=== PATIENT | female | born 1955 | race Caucasian/White ===

== ENCOUNTER → 2019-06-09 09:30 | Outpatient (BNVA) | payer SELFPAY | PROVIDERS: Family Provider Family Medicine; PCP Family Medicine; Visit Provider Anesthesiology | DX: M54.17 Radiculopathy, lumbosacral region (principal); M43.16 Spondylolisthesis, lumbar region; F17.210 Nicotine dependence, cigarettes, uncomplicated; Z79.891 Long term (current) use of opiate analgesic | CPT/HCPCS: 99214 ==

== ENCOUNTER 2019-07-21 14:06 | Outpatient (CLI) | payer MEDICAID, SELFPAY ==
--- NOTE | 2019-07-21 14:10 | MM_ITS ---
WS: [id number] BILATERAL DIGITAL SCREENING MAMMOGRAPHY WITH CAD CLINICAL INFORMATION: SCREENING HISTORY: Screening mammogram. No current complaints. COMPARISON: March 23, 2018 TECHNIQUE: Bilateral CC and MLO views. FINDINGS: Scattered fibroglandular densities bilaterally. No suspicious focal mass, asymmetry, calcifications, or architectural distortion. Stable asymmetric densities right breast. No evidence of malignancy. MM/[place] [id number] IMPRESSION: BI-RADS: 1-Negative FOLLOW UP: 1 Year Follow-up Recommend return to annual screening mammography.
== END 2019-07-21 14:07 | disposition home or self-care (01) ==
LOC: RADSHAW 14:06
PROVIDERS: Family Provider Family Medicine; PCP Family Medicine; Visit Provider Family Medicine
DX: Z12.31 Encounter for screening mammogram for malignant neoplasm of breast (principal)
CPT/HCPCS: 77067

== ENCOUNTER → 2019-08-01 10:31 | Outpatient (BNVA) | payer MEDICAID, SELFPAY | PROVIDERS: Family Provider Family Medicine; PCP Family Medicine; Visit Provider Anesthesiology | DX: G89.29 Other chronic pain (principal); M43.16 Spondylolisthesis, lumbar region; M54.17 Radiculopathy, lumbosacral region; F17.210 Nicotine dependence, cigarettes, uncomplicated; Z79.891 Long term (current) use of opiate analgesic; Z71.6 Tobacco abuse counseling | CPT/HCPCS: 99214 ==

== ENCOUNTER → 2019-10-03 08:42 | Outpatient (BNVA) | payer MEDICAID, SELFPAY | PROVIDERS: Family Provider Family Medicine; PCP Family Medicine; Visit Provider Nurse Practitioner | DX: M54.17 Radiculopathy, lumbosacral region (principal); M54.9 Dorsalgia, unspecified; F17.210 Nicotine dependence, cigarettes, uncomplicated; Z79.891 Long term (current) use of opiate analgesic | CPT/HCPCS: 99213 ==

== ENCOUNTER 2019-10-17 00:13 | Observation (INO) | payer MEDICAID, SELFPAY ==
[2019-10-17] VITALS (30 sets, daily range): BP systolic 97–179; BP diastolic 52–89; PULSE 69–108; RESP 14–20; TEMP 36.8–38.1; O2SAT 90–99; BMI 20.9
--- NOTE | 2019-10-17 00:36 | CTR_ITS ---
PROCEDURE INFORMATION: Exam: CT Abdomen And Pelvis With Contrast Exam date and time: 10/17/2019 12:42 AM Age: 64 years old Clinical indication: Abdominal pain; Localized; Lower; Additional info: Abd pain TECHNIQUE: Imaging protocol: Computed tomography of the abdomen and pelvis with intravenous contrast. Radiation optimization: All CT scans at this facility use at least one of these dose optimization techniques: automated exposure control; mA and/or kV adjustment per patient size (includes targeted exams where dose is matched to clinical indication); or iterative reconstruction. Contrast material: OMNI 300; Contrast volume: 95 ml; Contrast route: IV; COMPARISON: CR Hips Bilat 3-4v wwo Pelv [id number] 04/01/2018 2:04 PM RADIATION DOSE METRICS: Total DLP: 529.54 mGy-cm FINDINGS: Lungs: There is subsegmental atelectasis in the right middle lobe. 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 The liver is not pathologically enlarged. There is a 13 mm simple cyst in the right lobe of the liver. Gallbladder and bile ducts: The gallbladder is normal. There is no biliary dilation. Pancreas: The pancreatic duct is dilated in the pancreatic head and neck. No ductal stone or mass is seen. Spleen: Normal. No splenomegaly. Adrenals: The adrenal glands are unremarkable. Kidneys and ureters: There is a nonobstructive stone in the right kidney. There is no hydronephrosis or ureteral dilation. The left kidney and ureter are unremarkable. Stomach and bowel: The stomach is decompressed, preventing meaningful evaluation of wall thickness. The small bowel is nondilated. There is no sign of inflammation. The colon is unremarkable. Appendix: The appendix is dilated measuring up to 13 mm diameter. There is an appendicolith in the lumen. There is minimal periappendiceal edema. Intraperitoneal space: There is no free air or significant intraperitoneal free fluid. Vasculature: There is moderate aortic atherosclerotic disease. Lymph nodes: There is no lymphadenopathy in the retroperitoneum, mesentery, pelvis or inguinal regions. Bladder: The urinary bladder is unremarkable. Reproductive: The uterus is unremarkable. There is no adnexal mass or large cyst. Bones/joints: There is moderate degenerative disease in the lower lumbar spine. The pelvis and hips are unremarkable. Soft tissues: The abdominal wall is intact. CT/CT abdomen pelvis w con* [id number] IMPRESSION: 1. Acute appendicitis. No sign of perforation. 2. Incidental findings above. Radiation Dose CTDIVOL = (mGy): DLP = 529.54 (mGy-cm)
--- NOTE | 2019-10-17 00:37 | W.ED.ABDPA2 ---
Documented by User: [email or web address] Harry 10/17/19 01:58 HPI - Abdominal Pain General: Chief Complaint: Abdominal Pain Stated Complaint: Lower abd pain Time Seen by Provider: 10/17/19 00:27 History of Present Illness: HPI narrative: Patient complains abdominal pain sudden onset six oclock this evening. Has vomited x2. Has not been sick at all this week has history of chronic pain does go to pain clinic. Patient said she is has constant pain radiating through her abdomen to her flanks denies any urinary problems Are any bowel problems MD elicited complaint: abdominal pain Onset (ago): hour(s) Pain Consistency: constant Location: RLQ and LLQ Severity: severe Pain scale (0-10): 8 Quality: cramping Radiation: bilateral flank Exacerbating factors: nothing Relieving factors: nothing Context: possible food poisoning (Twin sister lives next door had some stomach problems earlier this week and had diarrhea this morning) Associated Symptoms: Reports no associated symptoms and vomiting; Denies chills, fever(s) and nausea Review of Systems Const: Denies: fever(s), chills or body aches Eyes: Denies: change in vision or blurry vision ENMT: Denies: throat pain or nasal congestion Card: Denies: chest pain or dyspnea on exertion Resp: Denies: dyspnea, productive cough or non-productive cough GI: Reports: abdominal pain and vomiting; Denies: nausea Musc: Denies: extremity pain Skin/Breast: Denies: rash Neuro: Denies: headache(s) Psych: Denies: anxiety or depression Tristian/Lymph: Denies: easy bruising PFSH ED PFSH: Medical History (Updated 10/17/19 @ 02:33 by Jackie Gallagher) Current every day smoker Long-term current use of opiate analgesic Lumbosacral radiculopathy due to intervertebral disc disorder Opioid contract exists Spondylolisthesis of lumbar region Surgical History History of carpal tunnel surgery of left wrist History of carpal tunnel surgery of right wrist Family History Other CAD (coronary artery disease) Denies family history of Anesthesia complication Bleeding disorder Social History (Updated 10/03/19 @ 08:58 by SHAMA Medina Smoking and tobacco status: current every day smoker cigarettes Packs smoked per day: 0.5 Alcohol intake: never History of recent travel: No Physical Exam Const: COMMON NORMALS: no acute distress, average body habitus and patient oriented x3 HENMT: COMMON NORMALS: normocephalic HEAD & SCALP: normal to inspection and normocephalic FACE & SINUS: normal facial exam Eye: COMMON NORMALS: conjunctivae normal GENERAL EYE: appearance normal, both eyes and all related structures CONJUNCTIVA: Yes conjunctivae normal Neck/C-Spine: COMMON NORMALS: no JVD Chest: COMMONS NORMALS: normal inspection of the chest Resp: COMMON NORMALS: normal respiratory effort and clear to auscultation bilaterally AUSCULTATION: clear to auscultation bilaterally Cardio: COMMON NORMALS: no JVD, regular rate and regular rhythm RATE: regular rate RHYTHM: regular rhythm GI: AUSCULTATION: Yes normoactive bowel sounds PALPATION: Yes Tenderness to palpation present (GI) Details: LLQ and RLQ PERCUSSION: normal to percussion Extremity: COMMON NORMALS: normal to inspection and full ROM Neuro: COMMON NORMALS: patient oriented x3 Course Vital Signs: Vital signs: Vital Signs Temperature 98.3 F 10/17/19 00:21 Pulse Rate 78 10/17/19 02:18 Respiratory Rate 16 10/17/19 02:21 Blood Pressure 179/89 10/17/19 02:18 Pulse Oximetry 96 10/17/19 02:21 MDM - Abdominal Pain MDM Narrative: Medical decision making narrative: Discussed case with Dr. Gallagher and will be signing out to him Lab Data: Labs: Lab Results 10/17/19 10/17/19 Range/Units 00:43 00:43 WBC 15.6 H (4.0-10.0) 10^3/ uL RBC 3.75 L (4.1-5.3) 10^6/u L Hgb 11.8 (11.5-15.3) g/dL Hct 36.1 L (37.0-47.0) % MCV 96.3 (81-99) fL MCH 31.5 (28.0-34.0) pg MCHC 32.7 (30.0-36.0) g/dL RDW 13.2 (12.1-15.1) % Plt Count 325 (130-400) 10^3/c mm MPV 9.4 (7.4-10.4) fL Neut % (Auto) 83.8 % Lymph % (Auto) 9.7 % Hopkins % (Auto) 5.4 % Eos % (Auto) 0.4 % Baso % (Auto) 0.4 % Neut # (Auto) 13.1 H (1.8-7.7) 10^3/u L Lymph # (Auto) 1.5 (0.8-4.8) 10^3/u L Hopkins # (Auto) 0.9 (0.2-0.9) 10^3/u L Eos # (Auto) 0.1 (0.0-0.8) 10^3/u L Baso # (Auto) 0.1 (0.0-0.1) 10^3/u L Nucleated RBC % (a uto) 0 % Nucleated RBCs # 0.0 /100WBC Sodium 138 (136-145) mmol/L Potassium 3.9 (3.5-5.1) mmol/L Chloride 101 (98-107) mmol/L Carbon Dioxide 24 (22-29) mmol/L Anion Gap 16.9 (5-19) BUN 16 (8-23) mg/dL Creatinine 0.7 (0.5-0.9) mg/dL GFR Calculation 84.5 L (90-130) mL/min Glucose 149 H (65-115) mg/dL Calculated Osmolal ity 285 (285-295) mOsm/k g Calcium 9.9 (8.5-10.5) mg/dL Total Bilirubin 0.2 (0.15-1.2) mg/dL AST 16 (0-32) U/L ALT 12 (0-33) U/L Alkaline Phosphata se 87 (35-105) IU/L Total Protein 7.5 (6.6-8.7) g/dL Albumin 4.5 (3.5-5.2) g/dL Globulin 3.0 (1.3-4.6) g/dL Lipase 235 H (13-60) U/L Discharge Plan Discharge Patient Disposition: Placed in Observation Admit Provider: Kimani Kay Clinical Impression: Acute appendicitis Condition: Stable Sign Out Sign Out Data: Patient Sign Out occurred on 10/17/19 at 02:02. Patient's care was discussed, and care was transferred from to Jackie Gallagher. Coding Level of Care Code ED Chief Ultrasound Technologist for Chg Fwd Exam Comprehensive Documented by User: Jackie Gallagher 10/17/19 02:33 HPI - Abdominal Pain General: Chief Complaint: Abdominal Pain Stated Complaint: Lower abd pain Time Seen by Provider: 10/17/19 00:27 [facility] ED PFSH: Medical History (Updated 10/17/19 @ 02:33 by Jackie Gallagher) Current every day smoker Long-term current use of opiate analgesic Lumbosacral radiculopathy due to intervertebral disc disorder Opioid contract exists Spondylolisthesis of lumbar region Surgical History History of carpal tunnel surgery of left wrist History of carpal tunnel surgery of right wrist Family History Other CAD (coronary artery disease) Denies family history of Anesthesia complication Bleeding disorder Social History (Updated 10/03/19 @ 08:58 by Niyah Andrews LPN) Smoking and tobacco status: current every day smoker cigarettes Packs smoked per day: 0.5 Alcohol intake: never History of recent travel: No Course Vital Signs: Vital signs: Vital Signs Temperature 98.3 F 10/17/19 00:21 Pulse Rate 78 10/17/19 02:18 Respiratory Rate 16 10/17/19 02:21 Blood Pressure 179/89 10/17/19 02:18 Pulse Oximetry 96 10/17/19 02:21 MDM - Abdominal Pain MDM Narrative: Medical decision making narrative: Case turned over to me from Barrera Salcido APN. Please see his note for his history, physical exam and medical decision making notes. Patient has localized peritonitis to the right lower quadrant. She is nonfocal throughout the rest of the abdomen. White count is elevated and CT scan does show appendicitis but no perforation. I reviewed the case in full with Dr. Kay who is agreeable to admission. We will start antibiotics and continue pain medication and IV hydration. Lab Data: Labs: Lab Results 10/17/19 10/17/19 Range/Units 00:43 00:43 WBC 15.6 H (4.0-10.0) 10^3/ uL RBC 3.75 L (4.1-5.3) 10^6/u L Hgb 11.8 (11.5-15.3) g/dL Hct 36.1 L (37.0-47.0) % MCV 96.3 (81-99) fL MCH 31.5 (28.0-34.0) pg MCHC 32.7 (30.0-36.0) g/dL RDW 13.2 (12.1-15.1) % Plt Count 325 (130-400) 10^3/c mm MPV 9.4 (7.4-10.4) fL Neut % (Auto) 83.8 % Lymph % (Auto) 9.7 % Hopkins % (Auto) 5.4 % Eos % (Auto) 0.4 % Baso % (Auto) 0.4 % Neut # (Auto) 13.1 H (1.8-7.7) 10^3/u L Lymph # (Auto) 1.5 (0.8-4.8) 10^3/u L Hopkins # (Auto) 0.9 (0.2-0.9) 10^3/u L Eos # (Auto) 0.1 (0.0-0.8) 10^3/u L Baso # (Auto) 0.1 (0.0-0.1) 10^3/u L Nucleated RBC % (a uto) 0 % Nucleated RBCs # 0.0 /100WBC Sodium 138 (136-145) mmol/L Potassium 3.9 (3.5-5.1) mmol/L Chloride 101 (98-107) mmol/L Carbon Dioxide 24 (22-29) mmol/L Anion Gap 16.9 (5-19) BUN 16 (8-23) mg/dL Creatinine 0.7 (0.5-0.9) mg/dL GFR Calculation 84.5 L (90-130) mL/min Glucose 149 H (65-115) mg/dL Calculated Osmolal ity 285 (285-295) mOsm/k g Calcium 9.9 (8.5-10.5) mg/dL Total Bilirubin 0.2 (0.15-1.2) mg/dL AST 16 (0-32) U/L ALT 12 (0-33) U/L Alkaline Phosphata se 87 (35-105) IU/L Total Protein 7.5 (6.6-8.7) g/dL Albumin 4.5 (3.5-5.2) g/dL Globulin 3.0 (1.3-4.6) g/dL Lipase 235 H (13-60) U/L Discharge Plan Discharge Patient Disposition: Placed in Observation Admit Provider: Kimani Kay Clinical Impression: Acute appendicitis Condition: Stable Sign Out Sign Out Data: Patient Sign Out occurred on 10/17/19 at 02:02. Patient's care was discussed, and care was transferred from to Jackie Gallagher. Coding Level of Care Code ED Chief Ultrasound Technologist for Jason Fwd Exam Comprehensive
[2019-10-17] MEDS: sodium chloride 0.9% 1,000 ML 999 ML IV (00:45)
[2019-10-17] MEDS: morphine 4 mg/mL SDV 1 mL IVP ×2 (00:46→06:48)
[2019-10-17] MEDS: metoclopramide 5 mg/mL SDV 2 mL 10 MG IVP (00:46)
[2019-10-17 00:52] LABS: Basophils # 0.1 10^3/uL (0.0-0.1); Basophils % 0.4 %; Eosinophils # 0.1 10^3/uL (0.0-0.8); Eosinophils % 0.4 %; Hematocrit 36.1 % (37.0-47.0); Hemoglobin 11.8 g/dL (11.5-15.3); Lymphocytes # 1.5 10^3/uL (0.8-4.8); Lymphocytes % 9.7 %; Mean Corpuscular HGB Conc 32.7 g/dL (30.0-36.0); Mean Corpuscular Hemoglobin 31.5 pg (28.0-34.0); Mean Corpuscular Volume 96.3 fL (81-99); Mean Platelet Volume 9.4 fL (7.4-10.4); Monocytes # 0.9 10^3/uL (0.2-0.9); Monocytes % 5.4 %; Neutrophils # 13.1 10^3/uL (1.8-7.7); Neutrophils % 83.8 %; Nucleated Red Blood Cells % 0 %; Platelet Count 325 10^3/cmm (130-400); Red Blood Count 3.75 10^6/uL (4.1-5.3); Red Cell Distribution Width 13.2 % (12.1-15.1); White Blood Count 15.6 10^3/uL (4.0-10.0)
[2019-10-17 01:10] LABS: Alanine Aminotransferase 12 U/L (0-33); Albumin Level 4.5 g/dL (3.5-5.2); Alkaline Phosphatase 87 IU/L (35-105); Anion Gap 16.9 (5-19); Aspartate Amino Transferase 16 U/L (0-32); Blood Urea Nitrogen 16 mg/dL (8-23); Calcium 9.9 mg/dL (8.5-10.5); Carbon Dioxide 24 mmol/L (22-29); Chloride 101 mmol/L (98-107); Glomerular Filtration Rate 84.5 mL/min (90-130); Glucose 149 mg/dL (65-115); Lipase 235 U/L (13-60); Osmolality Calculated 285 mOsm/kg (285-295); Potassium 3.9 mmol/L (3.5-5.1); Sodium 138 mmol/L (136-145); Total Bilirubin 0.2 mg/dL (0.15-1.2); Total Protein 7.5 g/dL (6.6-8.7)
[2019-10-17] MEDS: iohexol 300 mg/mL 100 mL Btl IV (01:19)
[2019-10-17] MEDS: ketorolac 30 mg/mL INJ 15 MG IVP (01:29)
[2019-10-17] MEDS: HYDROmorphone 1 mg/mL INJ 1 mL 0.5 MG IVP (02:21)
[2019-10-17] MEDS: piperacillin-tazobactam 3.375 GM in sodium chloride 0.9% (plus) 50 ML IV ×3 (02:23→17:05)
[2019-10-17 02:39] LABS: Add Urine Microscopic? NO
[2019-10-17 02:41] LABS: Bilirubin Urine Neg (NEGATIVE); Blood Urine Neg (Negative); Glucose Urine UA Norm (Normal); Ketones Urine Negative (Negative); Leukocyte Esterase Urine Negative (Negative); Nitrate Urine Negative (Negative); Protein Urine Neg (Negative); Urine Appearance Clear (CLEAR); Urine Color Yellow (Yellow); Urobilinogen Urine Norm (Negative); pH Urine 7 (5-7)
[2019-10-17] MEDS: dextrose 5%-sod chloride 0.45% 1,000 ML 100 ML IV (03:56)
[2019-10-17 04:28] LABS: HCG, Serum Qual Negative (Negative)
[2019-10-17 05:48] LABS: Basophils # 0.1 10^3/uL (0.0-0.1); Basophils % 0.3 %; Hematocrit 36.5 % (37.0-47.0); Hemoglobin 12.3 g/dL (11.5-15.3); Lymphocytes % 6.3 %; Mean Corpuscular HGB Conc 33.7 g/dL (30.0-36.0); Mean Corpuscular Hemoglobin 32.1 pg (28.0-34.0); Mean Corpuscular Volume 95.3 fL (81-99); Mean Platelet Volume 9.9 fL (7.4-10.4); Monocytes # 1.1 10^3/uL (0.2-0.9); Monocytes % 7.5 %; Neutrophils # 12.9 10^3/uL (1.8-7.7); Neutrophils % 85.6 %; Nucleated Red Blood Cells % 0 %; Platelet Count 302 10^3/cmm (130-400); Red Blood Count 3.83 10^6/uL (4.1-5.3); Red Cell Distribution Width 13.2 % (12.1-15.1)
--- NOTE | 2019-10-17 05:55 | PC.NURSE ---
Shift Note Patient was educated on being NPO through the night to prepare for possible surgery in the morning. Patient drank approx. 200ml of water. Patient has a low grade fever of 90.0 with chills. Patient reports that her pain has decreased since getting IV pain medication in the ER.
[2019-10-17 06:05] LABS: Anion Gap 21.7 (5-19); Blood Urea Nitrogen 12 mg/dL (8-23); Calcium 9.8 mg/dL (8.5-10.5); Carbon Dioxide 21 mmol/L (22-29); Chloride 101 mmol/L (98-107); Glucose 138 mg/dL (65-115); Osmolality Calculated 286 mOsm/kg (285-295); Potassium 4.7 mmol/L (3.5-5.1); Sodium 139 mmol/L (136-145)
[2019-10-17] MEDS: ondansetron 2 mg/ML SDV 2 mL 4 MG IVP (06:48)
[2019-10-17] MEDS: metroNIDAZOLE IV 500 MG/100 ML PREMIX 100 MG IV (07:08)
--- NOTE | 2019-10-17 07:11 | PM.HP ---
Providers/Chief Complaint Admitting Physician: Kimani Kay MD Primary Care Provider: Edith Milner MD Chief Complaint: Lower abd pain History of Present Illness Kassy Thomas is a 64 year old female who began having lower abdominal cramping last night around 6 PM. She had previously felt well. She said the pain seemed to bother her back, as well, but she does have chronic back issues. She also developed somewhat of a headache. She became somewhat nauseated and vomited 3 times at home without any evidence of hematemesis. She eventually came to the emergency room and work-up revealed acute appendicitis by CAT scan. The patient had a colonoscopy last year which she says was normal. She denies any changes in bowel habits. Review of Systems General: Reports: 10 or more systems reviewed and unremarkable except in HPI and below Medications/Allergies Home Medications Medication Instructions Recorded Confirmed Last Taken Type amitriptyline 75 mg tablet 75 mg PO QDAY PRN 06/09/19 10/03/19 Unknown History aspirin 81 mg tablet,delayed 81 mg PO QDAY 06/09/19 10/03/19 Unknown History release lisinopril 20 mg tablet 20 mg PO QDAY 06/09/19 10/03/19 Unknown History lovastatin 20 mg tablet 20 mg PO QDAY 06/09/19 10/03/19 Unknown History trazodone 100 mg tablet 100 mg PO .BEDTIME PRN tab 06/09/19 10/03/19 Unknown History kgagfct-threbwfcds-NZO-caffeine 30 1 cap PO ONCE PRN 30 Days #30 cap 10/03/19 10/03/19 Unknown Rx mg-50 mg-325 mg-40 mg capsule gabapentin 300 mg capsule 300 mg PO TID 30 Days #90 cap 10/03/19 10/03/19 Unknown Rx ibuprofen 800 mg tablet 800 mg PO BID PRN 30 Days #60 tab 10/03/19 10/03/19 Unknown Rx oxycodone 5 mg tablet 5 mg PO TID PRN 30 Days #90 tab 10/03/19 10/03/19 Unknown Rx oxycodone 5 mg tablet 5 mg PO TID PRN 30 Days #90 tab 10/03/19 10/03/19 Unknown Rx methocarbamol 500 mg tablet 500 mg PO TID PRN 30 Days #90 tab 10/04/19 Unknown Rx Allergies Allergy/AdvReac Type Severity Reaction Status Date / Time tramadol Allergy Unknown Verified 10/17/19 00:22 doxycycline AdvReac BEHAVIORAL Verified 10/03/19 08:49 CHANGES hydrocodone AdvReac CAUSES Verified 10/03/19 08:49 PATIENT TO FEEL WIRED PFSH Acute PFSH: Medical History (Updated 10/17/19 @ 07:13 by Kimani Kay MD) Current every day smoker Hypertension Long-term current use of opiate analgesic Lumbosacral radiculopathy due to intervertebral disc disorder Opioid contract exists Spondylolisthesis of lumbar region Surgical History (Updated 10/17/19 @ 07:14 by Kimani Kay MD) History of carpal tunnel surgery of left wrist History of tonsillectomy History of tubal ligation Family History Other CAD (coronary artery disease) Denies family history of Anesthesia complication Bleeding disorder Social History Smoking and tobacco status: current every day smoker cigarettes Packs smoked per day: 0.5 Alcohol intake: never History of recent travel: No Vitals/I&O/Wt Last Vital Signs Temp 99.0 F 10/17/19 06:06 Pulse 85 10/17/19 04:00 Resp 18 10/17/19 06:48 BP 149/72 10/17/19 04:00 Pulse Ox 95 10/17/19 04:00 10/16/19 10/17/19 10/17/19 22:59 06:59 14:59 Intake Total 200 / 200 Output Total 400 / 400 Balance -200 / -200 Weight last 48 hrs Weight 130 lb Physical Exam Narrative: EXAM NARRATIVE: The patient was encountered in her hospital room. She does not appear to be in any acute distress but seems uncomfortable when she tries to move around on the bed. The pupils are equal. No carotid bruits are heard. Lungs are clear anteriorly. The heart is regular. The abdomen does reveal some bowel sounds and is soft but she has tenderness all along her pelvis. The right side seems to be a little worse than the left and she does have some tenderness over McBurney's point. Rovsing's sign is negative in the sense that when I push on the left side of the pelvis she does have tenderness in that region. No obvious masses are palpated. The extremities reveal no edema. Neurologically the patient appears to be grossly intact. Data : 10/17/19 05:29 10/17/19 05:29 CT Abd/Pel: My impression: CT reveals a dilated appendix in the right lower quadrant extending inferiorly into the pelvis. Radiologist's impression: CT abdomen/pelvis radiologist iMPRESSION: 1. Acute appendicitis. No sign of perforation. 2. Incidental findings above. A&P Assessment and plan (1) Acute appendicitis: I have discussed appendicitis with the patient in some detail. Both conservative and surgical methods of treatment were gone over. Risks of surgery including bleeding, infection, internal organ injury, etc. were all discussed. The patient seems to understand and would prefer to undergo an appendectomy. Plans were made for the patient to undergo a laparoscopic or possibly open appendectomy this morning. Status: Acute Qualifiers: Acute appendicitis type: with localized peritonitis Appendicitis abscess presence: without abscess Appendicitis gangrene presence: without gangrene Appendicitis perforation presence: without perforation Qualified Code(s): K35.30 - Acute appendicitis with localized peritonitis, without perforation or gangrene Attestations Medical Necessity Statement*: Based on my medical assessment, presenting symptoms and consideration of the scope of surgical therapy, I expect this patient will require treatment in the hospital for a period of time spanning less than 2 midnights, and is therefore being placed in observation status. 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
--- NOTE | 2019-10-17 07:38 | ANES.PREANE2 ---
Pre-Anesthetic Assessment Pre-Anesthetic Assessment: Height/Weight: Height 1.68 m Weight 58.967 kg Temp Pulse Resp BP Pulse Ox 99.0 F 85 18 149/72 95 10/17/19 06:06 10/17/19 04:00 10/17/19 06:48 10/17/19 04:00 10/17/19 04:00 Proposed Procedure: Operation Date: 10/17/19 08:50 Proposed Procedures p Laparoscopic Appendectomy(Not Applicable) - Kimani Kay MD Last intake: Intake Last Liquid Date 10/16/19 Last Liquid Time 22:00 Last Solid Date 10/16/19 Last Solid Time 20:00 Social: Social History: Tobacco and No alcohol Exam: Pre-Anes Outpt Exam: alert, oriented x 3, clear to auscultation bilaterally and regular rate & rhythm Airway: Submandibular: WNL Cervical ROM: WNL MP: 2 Dentition: False and Full (dentures) History/ROS: No significant history except as noted Pulmonary: Pulmonary: Sleep apnea CV/HEM: CV/HEM: HTN : : None reported Hepatic: Hepatic: None reported GI: GI: None reported Metabolic: Metabolic: Hyperlipidemia Musc/skel: Musc/skel: Lower Back Pain and OA/DJD Neuropsych: Neuropsych: Anxiety, Depression and Neuropathy (left leg) Anesthetic Plan: ASA status: 3E Anesthesia: Anesthesia Evaluation and General Risk of > 500 ml blood loss (7ml/kg in children): No Meds/Allergies Current Medications: Current Medications Generic Name Dose Route Start Last Admin Trade Name Freq PRN Reason Stop Dose Admin Dextrose/Sodium Ch loride 1,000 mls @ 100 m ls/hr 10/17/19 03:14 10/17/19 03:56 Dextrose 5%-Sod Chloride 0.45% IV 100 mls/hr .Q10H NILO Administration Morphine Sulfate 4 mg 10/17/19 03:14 10/17/19 06:48 Morphine IVP 4 mg Q4H PRN Administration SEVERE PAIN Ondansetron HCl 4 mg 10/17/19 03:14 10/17/19 06:48 Zofran IVP 4 mg Q6H PRN Administration NAUSEA AND VOMITI NG PFSH Anesthesia PFSH: Medical History Current every day smoker Hypertension Long-term current use of opiate analgesic Lumbosacral radiculopathy due to intervertebral disc disorder Opioid contract exists Spondylolisthesis of lumbar region Surgical History History of carpal tunnel surgery of left wrist History of dilatation and curettage x 1 History of tonsillectomy History of tubal ligation Family History Other CAD (coronary artery disease) Denies family history of Anesthesia complication Bleeding disorder Social History Smoking and tobacco status: current every day smoker cigarettes Packs smoked per day: 0.5 Alcohol intake: never History of recent travel: No Data Anesthesia CBC & Chem 7: 10/17/19 05:29 10/17/19 05:29 Other Labs: Laboratory Results - last 48 hr 10/17/19 10/17/19 10/17/19 00:43 00:43 00:43 WBC 15.6 H RBC 3.75 L Hgb 11.8 Hct 36.1 L MCV 96.3 MCH 31.5 MCHC 32.7 RDW 13.2 Plt Count 325 MPV 9.4 Neut % (Auto) 83.8 Lymph % (Auto) 9.7 Christian % (Auto) 5.4 Eos % (Auto) 0.4 Baso % (Auto) 0.4 Neut # (Auto) 13.1 H Lymph # (Auto) 1.5 Christian # (Auto) 0.9 Eos # (Auto) 0.1 Baso # (Auto) 0.1 Nucleated RBC % (auto) 0 Nucleated RBCs # 0.0 Sodium 138 Potassium 3.9 Chloride 101 Carbon Dioxide 24 Anion Gap 16.9 BUN 16 Creatinine 0.7 GFR Calculation 84.5 L Glucose 149 H Calculated Osmolality 285 Calcium 9.9 Total Bilirubin 0.2 AST 16 ALT 12 Alkaline Phosphatase 87 Total Protein 7.5 Albumin 4.5 Globulin 3.0 Lipase 235 H HCG, Qual Negative Urine Color Urine Appearance Urine pH Ur Specific [place] Urine Protein Urine Glucose (UA) Urine Ketones Urine Blood Urine Nitrate Urine Bilirubin Urine Urobilinogen Ur Leukocyte Esterase 10/17/19 10/17/19 10/17/19 02:15 05:29 05:29 WBC 15.0 H RBC 3.83 L Hgb 12.3 Hct 36.5 L MCV 95.3 MCH 32.1 MCHC 33.7 RDW 13.2 Plt Count 302 MPV 9.9 Neut % (Auto) 85.6 Lymph % (Auto) 6.3 Christian % (Auto) 7.5 Eos % (Auto) 0.0 Baso % (Auto) 0.3 Neut # (Auto) 12.9 H Lymph # (Auto) 1.0 Christian # (Auto) 1.1 H Eos # (Auto) 0.0 Baso # (Auto) 0.1 Nucleated RBC % (auto) 0 Nucleated RBCs # 0.0 Sodium 139 Potassium 4.7 Chloride 101 Carbon Dioxide 21 L Anion Gap 21.7 H BUN 12 Creatinine 0.6 GFR Calculation 101.0 Glucose 138 H Calculated Osmolality 286 Calcium 9.8 Total Bilirubin AST ALT Alkaline Phosphatase Total Protein Albumin Globulin Lipase HCG, Qual Urine Color Yellow Urine Appearance Clear Urine pH 7 Ur Specific [place] 1.010 Urine Protein Neg Urine Glucose (UA) Norm Urine Ketones Negative Urine Blood Neg Urine Nitrate Negative Urine Bilirubin Neg Urine Urobilinogen Norm Ur Leukocyte Esterase Negative Cardiac Studies: No Data to Display
[2019-10-17] MEDS: fentaNYL 50 mcg/mL INJ 2mL 100 MCG IVP (07:51)
[2019-10-17] MEDS: sodium chloride 0.9% 1,000 ML 30 ML IV (07:58)
--- NOTE | 2019-10-17 08:55 | P.OP_ITS ---
Operative Report Date of procedure: October 17, 2019 Pre-op Diagnosis: Acute appendicitis. Post-op Diagnosis: Same, with localized perforation at the appendiceal base. Procedure Done: Laparoscopic appendectomy. Specimens removed/disposition: Appendix. Surgeon: Kimani Kay Anesthesia: General Estimated blood loss (mL): 5 Complications: None. Condition: stable Disposition: PACU Procedure: The patient was brought to the Operating Room and was placed in a supine position on the operating room table. General endotracheal anesthesia was induced. The abdomen was prepped and draped in a sterile fashion. A small vertical incision was carried out in the inferior aspect of the umbilicus. Blunt dissection was carried out down to the fascia, which was grasp ed with a Stevenson clamp. A stay suture of 0 Vicryl was placed on either side of the midline and the midline fascia was incised. The underlying peritoneum was opened bluntly and the Cas port was placed directly into the peritoneal cavity and was held in place with the inflatable balloon. The peritoneal cavity was insufflated with carbon dioxide. The laparoscope was used to inspect the peritoneal cavity. The appendix was readily identifiable extending inferiorly from the cecum and had some purulent exudate on its surface. No other gross abnormalities were noted initially. Two 5-millimeter ports were placed in the left lower quadrant under direct vision. The patient was tilted in a Trendelenburg position and slightly to the left side. A laparoscopic Meigs was used to elevate the cecum. The appendix was freed using blunt dissection and was then elevated. The mesoappendix was divided using cautery to maintain hemostasis at the base of the appendix. After the fat had been removed from the base of the appendix, it was found that the patient actually had a small localized perforation extending into the mesoappendix. An attempt was made to get the endoscopic stapler below the perforation and was fired. The appendix was removed from the peritoneal cavity after being placed in a laparoscopic bag. Given the tenuous tissue at the appendiceal base, a Z stitch of 3-0 Vicryl was placed at the cecum laparoscopically to occlude the stapled closure. The right lower quadrant and pelvis were irrigated. The closure at the cecum was identified and appeared to be in good condition. The Cas port was removed from the umbilical site and the stay sutures of Vicryl were tied to each other at the umbilicus, closing the fascial defect so that it was airtight. A final round of irrigation was carried out in the right lower quadrant and the pelvis. No ongoing problems were seen. The remaining ports were removed from the abdominal wall as the pneumoperitoneum was evacuated. All skin incisions were closed using inverted interrupted sutures of 4-0 Vicryl. Benzoin and Steri-Strips were placed over the incisions and Band- Aids followed. The patient was taken to the Recovery Room in stable condition postoperatively.
[2019-10-17] MEDS: ipratropium 0.5 mg/2.5 mL Neb INHALATION (09:18)
--- NOTE | 2019-10-17 09:26 | SUR.PHASEI ---
09 PT TO PACU SLEEPY WITHN ORAL AIRWAY IN PLACE ORDERS FROM ЕЛЕНА Berry CRNA FOR ALBUTEROL ATROVENT NEB TO BE DONE IN [facility] 924 PT AWAKE ALERT ON RA PT TALKATIVE WANT HER DENTURES IN , NO DISTRESS NOTED REPORT CALLED TO FLOOR
[2019-10-17] MEDS: pantoprazole 40 mg SDV IVP ×2 (09:49→21:40)
[2019-10-17] MEDS: heparin 5,000 unit/mL INJ 1 mL 5000 UNIT SUBCUT ×2 (09:49→23:08)
[2019-10-17] MEDS: gabapentin 300 mg Capsule PO ×3 (09:49→20:41)
[2019-10-17] MEDS: oxyCODONE 5 mg IR Tab/Cap PO ×2 (09:49→17:04)
[2019-10-17] MEDS: lisinopril 20 mg Tablet PO (09:49)
--- NOTE | 2019-10-17 09:54 | PC.NURSE ---
BACK TO FLOOR PATIENT VITALS GOOD. SURGICAL SITES COVERED WITH STERI STRIPS AND BANDAIDS. C/D/I. PATIENT PAIN MINIMAL AT THIS TIME.
--- NOTE | 2019-10-17 10:07 | SUR.PHASEI ---
0930 PT TO FLOOR PER CART PT UP WALKED TO BED PT ALERT TALKATIVE BP 135/71, HR 93
--- NOTE | 2019-10-17 10:49 | PC.RESP ---
SMOKING CESSATION INFORMATION SENT TO PATIENT.
--- NOTE | 2019-10-17 11:50 | PC.CHAP ---
Pastoral Care Encounter/Spiritual Assessment Type of Contact [] Declined dental assistant visit [] Patient/Family/Request visit [] Outpatient visit [] Follow-up visit [] Physician referral [] Code/Alert [x] Routine visit [] Staff referral [] Actively dying [] Patient sleeping [] Family support [] [] Out of room [] Palliative care [] [x] Receiving care in room [] Pre-surgical visit [] Trauma [] Long length of stay [] ICU visit [] Other: Relational/Emotional Strength [x] Patient feels connected with others/family/visitors/staff [] Distress [] Loneliness/isolation [] Abandonment Spirituality of Patient [x] Person of Sabrina [] Attends Moravian of their Sabrina [x] Believes in Prayer [] Reads Bible or Baptist materials [] There are Spiritual issues to be addressed Front End Software Developer Interventions [x] Prayer [x] Active listening [x] Non-anxious presence [x] Spiritual/emotional support [] Crisis/trauma care [x] Spiritual counseling [] Bereavement support [] Provided bereavement packet [] Provided Bible/devotional materials [] Provided toy/stuffed animal, coloring book to patient or family member [] Provided Communion [] Anointing/Wideman [] Salvation [x] Completed spiritual assessment [] Other: Impact on Illness or Injury [] Angry [] Fearful [x] Anxious [] Often cries [] Exhaustion [] Unable to work [] Unable to attend pentecostal [] Unable to walk/stand [] Unable to read [] Unable to drive [] Unable to eat/drink [] Unable to sleep [] Unable to be with family [] Patient intubated [] Other: Summary LOWER BACK PAIN, Good attitude feels better, looking to go home, Time spent with patient 10 mins
[2019-10-17] MEDS: metroNIDAZOLE 250 mg Tablet PO ×2 (14:25→20:41)
[2019-10-17] MEDS: ciprofloxacin 500 mg Tablet PO (17:04)
[2019-10-17] MEDS: D5-NS 0.45% + KCL 20 mEq 20 MEQ/1,000 ML BAG 100 MEQ IV (17:04)
--- NOTE | 2019-10-17 18:14 | NUR.SHIFT ---
SHIFT SUMMARY PATIENT HAS DONE WELL TODAY. SURGERY WAS THIS MORNING. SURGICAL INCISION DRESSINGS ARE C/D/I. EXCELLENT URINE OUTPUT. PAIN CONTROLLED. NO COMPLAINTS.
[2019-10-17] MEDS: methocarbamol 500 mg Tablet PO (20:41)
[2019-10-17] MEDS: atorvastatin 40 mg Tablet 20 MG PO (20:41)
[2019-10-17] MEDS: levalbuterol 0.63 mg/3 mL Neb INHALATION (21:29)
[2019-10-17] MEDS: trazodone 100 mg Tablet PO (23:08)
[2019-10-18] VITALS: BP 131/68; PULSE 86; RESP 18; TEMP 36.8; O2SAT 91
[2019-10-18] MEDS: piperacillin-tazobactam 3.375 GM in sodium chloride 0.9% (plus) 50 ML IV (01:51)
[2019-10-18] MEDS: D5-NS 0.45% + KCL 20 mEq 20 MEQ/1,000 ML BAG 100 MEQ IV (01:57)
[2019-10-18 02:12] LABS: Basophils % 0.1 %; Hematocrit 30.3 % (37.0-47.0); Hemoglobin 9.9 g/dL (11.5-15.3); Lymphocytes # 1.4 10^3/uL (0.8-4.8); Lymphocytes % 15.5 %; Mean Corpuscular HGB Conc 32.7 g/dL (30.0-36.0); Mean Corpuscular Hemoglobin 31.6 pg (28.0-34.0); Mean Corpuscular Volume 96.8 fL (81-99); Monocytes # 0.6 10^3/uL (0.2-0.9); Monocytes % 6.2 %; Neutrophils # 7.1 10^3/uL (1.8-7.7); Neutrophils % 78.1 %; Nucleated Red Blood Cells % 0 %; Platelet Count 208 10^3/cmm (130-400); Red Blood Count 3.13 10^6/uL (4.1-5.3); Red Cell Distribution Width 13.4 % (12.1-15.1); White Blood Count 9.1 10^3/uL (4.0-10.0)
[2019-10-18 03:46] VITALS: RESP 18; O2SAT 96
[2019-10-18] MEDS: oxyCODONE 5 mg IR Tab/Cap PO (03:46)
--- NOTE | 2019-10-18 06:24 | PC.NURSE ---
Shift Summary Patient rested well throughout the night. Patient requested pain medication for post op pain with good results. Patient received trazodone before bed and robaxin once for muscle spasms in her back. Patient reported relief and was able to rest for several hours before needing pain medication again. Patient is now resting peacefully. Patient was able to ambulate to the bathroom without difficulty and had good urine output.
[2019-10-18 07:28] VITALS: BP 164/82; PULSE 86; RESP 16; TEMP 36.9; O2SAT 96
[2019-10-18 07:29] VITALS: RESP 16
[2019-10-18] MEDS: morphine 4 mg/mL SDV 1 mL IVP (07:29)
--- NOTE | 2019-10-18 07:47 | ANE.PACU2 ---
Inpatient post-anesthesia follow up: Airway intact: Yes Vital signs: Temperature 98.4 F Pulse Rate [Monito r] 78 Pulse Rate 86 Respiratory Rate 16 Blood Pressure [Le ft Arm] 163/71 Blood Pressure 164/82 Pulse Oximetry 96 Oxygen Delivery Me thod Room Air Oxygen Flow Rate 8 Fraction of Inspir ed Oxygen Hydration adequate: Yes Nausea and vomiting: No Mental status: Baseline
--- NOTE | 2019-10-18 08:23 | PM.DCS ---
Discharge Providers Date of Admission: 10/17/19 02:02 Date of Discharge: October 18, 2019 Attending Provider at Admission: Kimani Kay MD Attending Provider at Discharge: Kimani Kay MD Primary Care Provider: Edith Milner MD Diagnoses at Discharge Discharge Diagnosis (1) Acute appendicitis: Status: Deleted Qualifiers: Acute appendicitis type: with localized peritonitis Appendicitis abscess presence: without abscess Appendicitis gangrene presence: without gangrene Appendicitis perforation presence: without perforation Qualified Code(s): K35.30 - Acute appendicitis with localized peritonitis, without perforation or gangrene (2) Acute appendicitis with perforation and localized peritonitis: Status: Acute Problem details: Small contained localized perforation at the base of the appendix. Reason for Visit Reason for Visit: Lower abd pain Hospital Course Discharge Summary: This is a 64-year-old white female who presented to the emergency room with a less than 24-hour history of abdominal pain. Work-up revealed acute appendicitis. She was taken to the operating room the following morning and a laparoscopic appendectomy was performed. A small localized perforation was found at the base of the appendix into the surrounding fat but appeared to be very well contained. There was minimal spillage of the intraluminal contents. The base of the appendix was stapled and was reinforced with a laparoscopically placed Z stitch to cover the appendiceal base. The patient was kept on broad-spectrum antibiotics postoperatively. By the following morning she was afebrile and her white blood cell count had returned to normal. Her wounds all looked good and she was passing flatus and was tolerating an oral diet. She was anxious to go home. Her biggest complaint was that her chronic back pain had been bothering her because nursing had apparently insisted she sleep on her back, which she says she never does because her back will act up if she does so. I made her aware that she could sleep on her side at home. Even though all indicators appeared that further antibiotics may not be clearly necessary, because of her localized perforation I elected to leave her on some oral antibiotics for 5 days as an outpatient. She was discharged on ciprofloxacin and metronidazole in addition to her regular medication regimen. She was instructed with respect to wound care, activity limitations, diet, etc. Arrangements will be made for the patient to follow-up with me as an outpatient in the office. Physical Exam Narrative: EXAM NARRATIVE: The patient is afebrile. Chest is clear and heart is regular. The abdomen is softly distended. Bowel sounds are present. All of the laparoscopic incisions look good. Discharge Data Data Completed and Pending: Completed Studies During Hospitalization Category Date Time Status CT abdomen pelvis w con* [id number] Urge nt Cat Scan 10/17/19 00:36 Completed Pending at discharge Category Date Time Status Pathology: Surgic al [PTH] Routine Pth 10/17/19 08:55 Received Labs from last 24 hours 10/18/19 02:06 WBC 9.1 RBC 3.13 L Hgb 9.9 L Hct 30.3 L MCV 96.8 MCH 31.6 MCHC 32.7 RDW 13.4 Plt Count 208 MPV 10.0 Neut % (Auto) 78.1 Lymph % (Auto) 15.5 [place] % (Auto) 6.2 Eos % (Auto) 0.0 Baso % (Auto) 0.1 Neut # (Auto) 7.1 Lymph # (Auto) 1.4 [place] # (Auto) 0.6 Eos # (Auto) 0.0 Baso # (Auto) 0.0 Nucleated RBC % (a uto) 0 Nucleated RBCs # 0.0 Vitals: Last Vital Signs Temp 98.4 F 10/18/19 07:28 Pulse 86 10/18/19 07:28 Resp 16 10/18/19 07:29 BP 164/82 10/18/19 07:28 Pulse Ox 96 10/18/19 07:28 Discharge Plan Discharge Patient Disposition: Home, Self-Care Condition: Stable Prescriptions: New metronidazole 250 mg Tablet 250 mg PO TID Qty: 15 RF: 0 ciprofloxacin HCl 500 mg Tablet 500 mg PO BID Qty: 10 RF: 0 Continued gabapentin [Neurontin] 300 mg capsule 300 mg PO TID 30 Days Qty: 90 RF: 1 ibuprofen 800 mg tablet 800 mg PO BID PRN (Reason: pain) 30 Days Qty: 60 RF: 1 oxycodone 5 mg tablet 5 mg PO TID PRN (Reason: pain) 30 Days Qty: 90 RF: 0 oxycodone 5 mg tablet 5 mg PO TID PRN (Reason: pain) 30 Days Qty: 90 RF: 0 [id number]-caff [Butalbital Compound W/Codeine] [id number] mg capsule 1 cap PO ONCE PRN (Reason: headache) 30 Days Qty: 30 RF: 0 trazodone 100 mg tablet 100 mg PO .BEDTIME PRNRF: 0 amitriptyline 75 mg tablet 75 mg PO QDAY PRNRF: 0 lovastatin 20 mg tablet 20 mg PO QDAY RF: 0 aspirin [Adult Aspirin Regimen] 81 mg tablet,delayed release (DR/EC) 81 mg PO QDAY RF: 0 lisinopril 20 mg tablet 20 mg PO QDAY RF: 0 methocarbamol 500 mg tablet 500 mg PO TID PRN (Reason: spasms) 30 Days Qty: 90 RF: 1 Discharge Orders: Discharge Order (Routine); Ordered 10/18/19 Ordered By: Kimani Kay Referrals: Kimani Kay MD [Physician] - 10/31/19 10:45 am Discharge Diet: Advance as tolerated Discharge Activity: Limit activity as instructed Activity Restrictions/Additional Instructions: 1. Discharge to home today. 2. Appointment to see Dr. Kay in 10-14 days as above. 3. Leave Steri-Strip(s) on, may shower as discussed. No lifting over 20 pounds, no repetitive bending or twisting, no strenuous pushing / pulling or other heavy activity. Ambulate regularly. May go up and down steps if needed. Discharge Attestations Time Spent in Discharge Care*: less than 30 min Quality Metrics Clinical Quality Measures During this hospital stay, did patient experience: None Coding Level of Care Code Acute Cost Accounting Manager for [facility] Fwd Diagnoses Acute appendicitis K35.30 Acute appendicitis type: with localized peritonitis Appendicitis abscess presence: without abscess Appendicitis gangrene presence: without gangrene Appendicitis perforation presence: without perforation Acute appendicitis with perforation and localized peritonitis K35.32
--- NOTE | 2019-10-18 08:52 | PC.CHAP ---
Pastoral Care Encounter/Spiritual Assessment Type of Contact [] Declined sonography technician visit [] Patient/Family/Request visit [] Outpatient visit [] Follow-up visit [] Physician referral [] Code/Alert [x] Routine visit [] Staff referral [] Actively dying [] Patient sleeping [] Family support [] [] Out of room [] Palliative care [] [] Receiving care in room [] Pre-surgical visit [] Trauma [] Long length of stay [] ICU visit [] Other: Relational/Emotional Strength [] Patient feels connected with others/family/visitors/staff [] Distress [] Loneliness/isolation [] Abandonment Spirituality of Patient [] Person of Sabrina [] Attends Church of their Sabrina [] Believes in Prayer [] Reads Bible or Muslim materials [] There are Spiritual issues to be addressed Photo Tube Assembler Interventions [x] Prayer [] Active listening [] Non-anxious presence [] Spiritual/emotional support [] Crisis/trauma care [] Spiritual counseling [] Bereavement support [] Provided bereavement packet [] Provided Bible/devotional materials [] Provided toy/stuffed animal, coloring book to patient or family member [] Provided Communion [] Anointing/Mode [] Salvation [x] Completed spiritual assessment [] Other: Impact on Illness or Injury [] Angry [] Fearful [] Anxious [] Often cries [] Exhaustion [] Unable to work [] Unable to attend jewish [] Unable to walk/stand [] Unable to read [] Unable to drive [] Unable to eat/drink [] Unable to sleep [] Unable to be with family [] Patient intubated [] Other: Summary patient ready to be discharged. Surgery,. someone at home to assist with care Time spent with patient 10 min
[2019-10-18] MEDS: aspirin 81 mg EC Tablet PO (08:55)
[2019-10-18] MEDS: gabapentin 300 mg Capsule PO (08:55)
[2019-10-18] MEDS: ciprofloxacin 500 mg Tablet PO (08:55)
[2019-10-18] MEDS: lisinopril 20 mg Tablet PO (08:55)
[2019-10-18] MEDS: metroNIDAZOLE 250 mg Tablet PO (08:57)
[2019-10-18] MEDS: pantoprazole 40 mg SDV IVP (08:58)
[2019-10-18] MEDS: levalbuterol 0.63 mg/3 mL Neb INHALATION (09:45)
[2019-10-18 09:46] VITALS: PULSE 94; RESP 16; O2SAT 97
[2019-10-18 10:55] VITALS: PULSE 94; RESP 16; O2SAT 97
== END 2019-10-18 10:56 | disposition home or self-care (01) ==
LOC: ER 02:02 → MEDSURG 02:20
PROVIDERS: Emergency Medicine; Nurse Practitioner Family; Admitting Provider Surgery; PCP Family Medicine; Visit Provider Surgery
PROC: 0DTJ4ZZ Resection of Appendix, Percutaneous Endoscopic Approach (ICD-10-PCS; CPT 44970; principal; 2019-10-17 08:30)
DX: K35.30 Acute appendicitis with localized peritonitis, without perforation or gangrene (principal); Z79.82 Long term (current) use of aspirin; K35.32 Acute appendicitis with perforation, localized peritonitis, and gangrene, without abscess; G47.30 Sleep apnea, unspecified; I10 Essential (primary) hypertension; E78.5 Hyperlipidemia, unspecified; M19.90 Unspecified osteoarthritis, unspecified site; F41.9 Anxiety disorder, unspecified; F32.9 Major depressive disorder, single episode, unspecified; F17.210 Nicotine dependence, cigarettes, uncomplicated; Z82.49 Family history of ischemic heart disease and other diseases of the circulatory system
CPT/HCPCS: 44970; 12345; 36415; 74177; 80048; 80053; 81003; 83690; 84703; 85025; 88304; 94640; 96365; 96372; 96374; 96375; 96376; 99283; 99285; C9113; G0378; J0690; J1100; J1170; J1644; J1885; J2001; J2270; J2370; J2405; J2543; J2704; J2710; J2765; J3010; J3490; J7030; J7611; J7614; J7644; J7799; Q9967; S0030

== ENCOUNTER → 2019-11-22 14:34 | Outpatient (BNVA) | payer MEDICAID, SELFPAY | PROVIDERS: PCP Nurse Practitioner Family; Visit Provider Nurse Practitioner | DX: M54.17 Radiculopathy, lumbosacral region (principal); M43.16 Spondylolisthesis, lumbar region; R51 Headache; F17.210 Nicotine dependence, cigarettes, uncomplicated; Z79.891 Long term (current) use of opiate analgesic; Z71.6 Tobacco abuse counseling | CPT/HCPCS: 99214 ==

== ENCOUNTER → 2020-01-17 13:57 | Outpatient (BNVA) | payer MEDICAID, SELFPAY | PROVIDERS: PCP Nurse Practitioner Family; Visit Provider Anesthesiology | DX: M43.16 Spondylolisthesis, lumbar region (principal); M54.17 Radiculopathy, lumbosacral region; M54.9 Dorsalgia, unspecified; R51 Headache; F17.210 Nicotine dependence, cigarettes, uncomplicated; Z79.891 Long term (current) use of opiate analgesic; Z71.6 Tobacco abuse counseling | CPT/HCPCS: 99214 ==

== ENCOUNTER 2020-01-19 08:30 | Outpatient (CLI) | payer MEDICAID, SELFPAY ==
--- NOTE | 2020-01-19 08:38 | US_ITS ---
WS: [id number] Complete ABDOMINAL ULTRASOUND HISTORY: RUQ ABDOMINAL PAIN COMPARISON: None available. Liver: 14.6 cm in length. Liver is normal size and echogenicity with no mass or intrahepatic dilatati on. Gallbladder: Normally distended gallbladder. There are several small soft tissue and nonshadowing foc i in the gallbladder. No increased vascularity. There are both obtuse an acute angles of these nodule s to the gallbladder wall. No pericholecystic fluid. Largest polyp measures 4 mm. Wall thickening whi ch may be an additional polyp measures 3.6 mm. Gallbladder wall thickness: 0.2 cm. Pancreas: Normal size and echogenicity. CBD: 0.3 cm. Right kidney: 12.7 cm x 5.6 cm x 4.7 cm. No mass, cortical thickening or hydronephrosis. Left kidney: 10.2 cm x 4.5 cm x 3.9 cm. No mass, cortical thickening or hydronephrosis. Spleen: Normal size and echogenicity. Abdominal aorta and IVC are within normal limits. No ascites. US/US abdomen complete* [id number] IMPRESSION: 1. Abnormal gallbladder. There are several gallbladder polyps and/or gallbladd er wall thickening. No cholelithiasis. Recommend surgical evaluation and possib le removal due to the multiple polyps and their configuration. 2. Otherwise negative.
== END 2020-01-19 08:31 | disposition home or self-care (01) ==
LOC: RAD 08:31
PROVIDERS: PCP Nurse Practitioner Family; Visit Provider Nurse Practitioner Family
DX: R10.11 Right upper quadrant pain (principal); R93.2 Abnormal findings on diagnostic imaging of liver and biliary tract
CPT/HCPCS: 76700

== ENCOUNTER 2020-02-26 12:12 | Outpatient (CLI) | payer MEDICAID, SELFPAY ==
--- NOTE | 2020-02-26 12:45 | USCV_ITS ---
Kassy Thomas Age: 64 Gender: F : 1955 Exam Date: 02/26/2020 12:43 Ordering Phys: Jose Jackson MD Technologist: Krista Schafer Exam Location: [facility] [place] Indication: MURMUR BP: 112 / 71 HR: 70 Rhythm: Sinus Technical Quality: Adequate MEASUREMENTS (Male / Female) Normal Values 2D ECHO LV Diastolic Diameter PLAX 3.6 cm 4.2 - 5.9 / 3.9 - 5.3 cm LV Systolic Diameter PLAX 2.1 cm LV Chamber Size 3.6 cm IVS Diastolic Thickness 1.2 cm 0.6 - 1.0 / 0.6 - 0.9 cm IVS Systolic Thickness 1.2 cm LVPW Diastolic Thickness 2.0 cm 0.6 - 1.0 / 0.6 - 0.9 cm LVPW Systolic Thickness 2.0 cm RV Chamber Size 3.1 cm LVOT Diameter 2.0 cm LV Ejection Fraction 2D Teich 72.0 % LV Ejection Fraction MOD 2C 54.9 % LV Ejection Fraction 2C AL 55.3 % LA Diameter 2.9 cm LA Width 3.0 cm LA Height 4.8 cm RA Width 3.5 cm RA Height 4.1 cm Aorta at Sinotubular Diameter 2.2 cm M-MODE LV Diastolic Diameter MM 4.9 cm 4.2 - 5.9 / 3.9 - 5.3 cm LV Systolic Diameter MM 3.0 cm LV Ejection Fraction MM Teich 68.2 % IVS Diastolic Thickness MM 0.8 cm 0.6 - 1.0 / 0.6 - 0.9 cm IVS Systolic Thickness MM 1.3 cm LVPW Diastolic Thickness MM 0.9 cm 0.6 - 1.0 / 0.6 - 0.9 cm LVPW Systolic Thickness MM 1.2 cm Aortic Annulus Diameter 2.7 cm LA Ao Ratio MM 1.2 MV E Point Septal Separation 0.5 cm DOPPLER AV Peak Velocity 208.0 cm/s LVOT Peak Velocity 140.7 cm/s AV Area Cont Eq vti 2.6 cm squared AV Area Cont Eq pk 2.2 cm squared MV Area PHT 4.0 cm squared Mitral E to A Ratio 0.9 MV E' Velocity 65.0 cm/s Mitral E to MV E' Ratio 11.9 Mitral E to LV E' Lateral Ratio 12.0 Mitral E to LV E' Septal Ratio 11.8 TR Peak Velocity 298.3 cm/s TR Peak Gradient 35.6 mmHg TV Peak E Velocity 46.0 cm/s Right Atrial Pressure 3.0 mmHg Pulmonary Artery Systolic Pressu 38.6 mmHg PV Peak Velocity 46.0 cm/s RV Acceleration Time 0.1 s RV Ejection Time 0.3 s RV AcT/ET 0.4 FINDINGS Left Ventricle Normal left ventricular size, systolic function and wall thickness, with no regional wall motion abnormalities. LVEF is 60 to 65%. Left ventricular hypertrophy is noted. Normal diastolic filling pattern. Right Ventricle The right ventricle is normal in size and function. Right Atrium The right atrium is normal in size. Left Atrium The left atrium is normal in size. Mitral Valve Structurally normal mitral valve without significant stenosis or prolapse. There is mild mitral regurgitation. Aortic Valve Thickened aortic valve. No significant aortic stenosis is noted. There is no aortic regurgitation. Tricuspid Valve Structurally normal tricuspid valve without significant stenosis. There is mild tricuspid regurgitation. RVSP is 35 to 40 mmHg. Mild pulmonary hypertension is noted. Pulmonic Valve Structurally normal pulmonic valve without significant stenosis. There is no pulmonic regurgitation. Pericardium Normal pericardium without effusion. Aorta Normal ascending aorta dimension. CONCLUSIONS LV systolic function is normal with EF of 60 to 65%. Normal diastolic function. Mild left ventricular hypertrophy is noted. Mild tricuspid regurgitation and mild mitral regurgitation is present. Mild pulmonary hypertension is noted. Compared to prior study from 11/30/2017, George Hall MD (Electronically Signed) Final Date: 27 February 2020 14:24 S
== END 2020-02-26 12:13 | disposition home or self-care (01) ==
LOC: US 12:14
PROVIDERS: PCP Nurse Practitioner Family; Visit Provider Surgery
DX: R01.1 Cardiac murmur, unspecified (principal); I34.0 Nonrheumatic mitral (valve) insufficiency; I07.1 Rheumatic tricuspid insufficiency; I27.20 Pulmonary hypertension, unspecified
CPT/HCPCS: 93306

== ENCOUNTER → 2020-05-01 12:46 | Outpatient (BNVA) | payer MEDICAID, SELFPAY | PROVIDERS: PCP Nurse Practitioner Family; Visit Provider Nurse Practitioner | DX: M54.17 Radiculopathy, lumbosacral region (principal); M43.16 Spondylolisthesis, lumbar region; M54.9 Dorsalgia, unspecified; M79.604 Pain in right leg; F17.210 Nicotine dependence, cigarettes, uncomplicated; Z79.891 Long term (current) use of opiate analgesic | CPT/HCPCS: 99213 ==

== ENCOUNTER → 2020-06-17 14:45 | Outpatient (BNVA) | payer MEDICAID, SELFPAY | PROVIDERS: PCP Nurse Practitioner Family; Referring Provider Nurse Practitioner Family; Visit Provider Podiatrist Foot & Ankle Surgery | DX: M79.672 Pain in left foot (principal); M79.671 Pain in right foot | CPT/HCPCS: 73630 ==

== ENCOUNTER 2020-06-17 15:39 | Outpatient (CLI) | payer MEDICAID, SELFPAY | END 2020-06-17 15:40 | disposition home or self-care (01) | LOC: LAB 15:44 | PROVIDERS: PCP Nurse Practitioner Family; Visit Provider Podiatrist Foot & Ankle Surgery | DX: R23.8 Other skin changes (principal); Z20.822 Contact with and (suspected) exposure to COVID-19 | CPT/HCPCS: 86769 ==

== ENCOUNTER → 2020-06-20 11:40 | Outpatient (BNVA) | payer MEDICAID, SELFPAY | PROVIDERS: PCP Nurse Practitioner Family; Visit Provider Surgery | DX: Z20.822 Contact with and (suspected) exposure to COVID-19 (principal); K82.4 Cholesterolosis of gallbladder | CPT/HCPCS: 87635 ==

== ENCOUNTER 2020-06-25 05:36 | Day surgery (SDC) | payer MEDICAID, SELFPAY ==
[2020-06-24 10:12] VITALS: BMI 22.4
--- NOTE | 2020-06-24 11:53 | ANES.PREANE2 ---
Pre-Anesthetic Assessment Pre-Anesthetic Assessment: Height/Weight: Height 1.68 m Weight 63.049 kg Preop Diagnosis: Gallbladder polyp Proposed Procedure: Operation Date: 06/25/20 07:00 Proposed Procedures p Laparoscopic Cholecystectomy 84728 K82.4(Not Applicable) - Jose Jackson MD Was Beta Tom taken within 24 hours: N/A Social: Social History: Tobacco and No alcohol Exam: Pre-Anes Outpt Exam: alert, oriented x 3 and regular rate & rhythm Additional Exam Findings (including area of procedure): decreased, rhonchi Airway: Submandibular: WNL Cervical ROM: WNL MP: 2 Dentition: False Pulmonary: Pulmonary: COPD CV/HEM: CV/HEM: HTN Musc/skel: Musc/skel: Lower Back Pain Neuropsych: Neuropsych: Anxiety and SANCHEZ Anesthetic Plan: ASA status: 3 Anesthesia: General Risk of > 500 ml blood loss (7ml/kg in children): No PFSH Anesthesia PFSH: Medical History (Updated 06/20/20 @ 12:27 by Td White DPM) Acute appendicitis with perforation and localized peritonitis Small contained localized perforation at the base of the appendix. Current every day smoker Hypertension Long-term current use of opiate analgesic Lumbosacral radiculopathy due to intervertebral disc disorder Opioid contract exists Spondylolisthesis of lumbar region Surgical History (Updated 06/20/20 @ 12:27 by Td White DPM) History of carpal tunnel surgery of left wrist History of colonoscopy (~2019) History of dilatation and curettage x 1 History of tonsillectomy History of tubal ligation Hx of appendectomy Dr. Kay 10/18/19 [facility] [place] Family History Other CAD (coronary artery disease) Denies family history of Anesthesia complication Bleeding disorder Social History Smoking and tobacco status: current every day smoker cigarettes Packs smoked per day: 0.5 Alcohol intake: never History of recent travel: No Data Anesthesia Cardiac Studies: No Data to Display
[2020-06-25] VITALS (8 sets, daily range): BP systolic 95–164; BP diastolic 55–89; PULSE 77–90; RESP 14–18; TEMP 36.1–36.6; O2SAT 95–100
--- NOTE | 2020-06-25 06:23 | W.PM.OPSUD ---
Surgery/Procedure H&P Update DATE OF PROCEDURE: June 25, 2020 DATE H&P PERFORMED: 06/06/20 H&P UPDATE INFORMATION: I have reviewed H&P completed within last 30 days, I have examined patient prior to procedure and No changes to prior documentation PREOP DIAGNOSIS: Gallbladder polyp PRIMARY INDICATION FOR PROCEDURE: The same PLANNED PROCEDURE: Operation Date: 06/25/20 07:00 Proposed Procedures p Laparoscopic Cholecystectomy 30802 K82.4(Not Applicable) - Jose Jackson MD
[2020-06-25] MEDS: sodium chloride 0.9% 1,000 ML 30 ML IV (06:25)
--- NOTE | 2020-06-25 06:49 | P.ANESUD_ITS ---
Pre-Anesthetic Update Pre-Anesthetic Assessment: Date of Surgery/Procedure: 06/25/20 Preop Conchita gnosis: Gallbladder polyp Proposed Procedure: Operation Date: 06/25/20 07:00 Proposed Procedures p Laparoscopic Cholecystectomy 24656 K82.4(Not Applicable) - Jose Jackson MD Any changes to Pre-Anesthetic Assessment?: No Last Intake: Intake Last Liquid Date 06/24/20 Last Liquid Time 20:00 Last Solid Date 06/24/20 Last Solid Time 20:00 Vitals: Temperature 96.9 F L 06/25/20 06:00 Temperature Source Temporal Artery S can 06/25/20 06:00 Pulse Rate 83 06/25/20 06:00 Pulse Rhythm 06/25/20 06:05 Pulse Strength 3+ Normal 06/25/20 06:05 Respiratory Rate 18 06/25/20 06:00 Blood Pressure 164/89 06/25/20 06:00 Blood Pressure Rayne n 114 06/25/20 06:00 Pulse Oximetry 100 06/25/20 06:00 Oxygen Delivery Me thod 06/25/20 06:05 Exam: Pre-Anes Outpt Exam: alert, oriented x 3, clear to auscultation bilaterally and regular rate & rhythm Cardiac Studies: No Data to Display
[2020-06-25] MEDS: lidocaine 2% INJ 20 mL INJECTION (07:38)
--- NOTE | 2020-06-25 07:46 | PM.OP ---
Operative Report Date of procedure: June 25, 2020 Pre-op Diagnosis: Gallbladder polyp Post-op diagnosis: same (Chronic cholecystitis) Procedure Done: Laparoscopic cholecystectomy Specimens removed/disposition: Gallbladder and contents Surgeon: Jose Jackson Packing Room Worker: Surgical emmanuel Wong Circulating nurse Kaitlin Anesthesia: General (customer service agent Sara) Estimated blood loss (mL): 5 Condition: stable Disposition: same day Brief History: Plan of care; After thorough history physical examination and reviewing the chart and images with my personal intrepreatation.I counseled the patient for laparoscopic cholecystectomy possible open, indications risks including but not limited injury to the common bile duct and/or other viscera,that may require potential future surgical interventions including but not limited to ERCP and or laparatomy that may include Hepatobiliary surgery.Benefits and alternatives all discussed with the patient, and patient did agree to proceed accordingly. All questions have been answered and all concerns have been addressed to patient's satisfaction. Rationale was carefully and clearly discussed with the patient.Appropriate informed consent have been reviewed and signed. Procedure: Patient was identified in the holding area and taken back to the operative suite, placed in supine position intubated by anesthesia . Time-out was done verifying the patient's name/date of /planned procedure and destination after the procedure, all were in agreement. SCDs confirmed to be functioning, preoperative antibiotics administered per protocol, and beta varghese protocol was confirmed. Patient was appropriately secured to the table, footboard was applied to the OR table, before prep and drape anesthesia was asked to tilt the table back and forth to make sure that the patient is appropriately secured and she was. Prep and drape of the abdomen was done under the usual sterile technique, followed by that supraumbilical skin incision,skin incision was done by a 15 blade knife, and stay sutures were applied to the fascia and Rios trocar technique was used to enter the abdominal without injuring any abdominal viscera, started by low flow gas insufflation followed by a high flow, started with a 10 mm laparoscope and under direct vision there was no evidence of any injuries, the scope then switched to a 30? ,10 millimeter scope and under direct visualization 5 millimeter trocar was inserted in the epigastric region followed by two 5 mm trocars were inserted in the right upper quadrant that was done after injection of local lidocaine 2% at all incision sites. Gallbladder showed chronic cholecystitis &with adhesions Patient was then positioned in the head up and tilted to the left Ratcheted forceps were introduced into the lateral most 5mm port and was applied unto the fundus of the gallbladder cephalad and using Bullet forceps the infundibulum of the gallbladder was retracted laterally. Using [place] forceps then L-hook cautery to dissect the peritoneum overlying the Calot's triangle whihc was then opened medially and laterally until the cystic duct and the cystic artery were skeletonized. Dissection was carried along the body of the gallbladder and after ensuring critical view of safety was identfied. Cystic duct and cystic artery where seen connected to the gallbladder. Clips were applied on the cystic duct towards the common bile duct 1 towards the gallbladder then divided is in sharp scissors, 2 clips were then applied onto the cystic artery and 1 towards the gallbladder and divided by sharp scissors. Dissection was then carried along of the gallbladder from the gallbladder fossa using cautery as well as sharp dissection with heat energy. The gallbladder then was dissected out from the gallbladder fossa totally , cholecystectomy was then achieved and was placed in an Endo Catch bag and then retrieved from the Rios trocar site under direct visualization using a 5 mm 30? scope through the epigastric trocar, specimen was then passed to the circulating nurse to go for permanent pathology,irrigation and hemostasis was done to the gallbladder fossa after hemostasis was secured, final survey laparoscopy was done that showed no injuries.Suction irrigation was obtained. The supraumbilical fascial defect was then closed using interrupted #1 PDS sutures using a fascial closure device ;Christopher Jones under direct visualization Gas was allowed to deflate,Trocars were then taken out under direct vision there was no evidence of bleeding Specimen was passed to the circulating nurse for permanent pathology. No drains were placed and the supraumbilical incision as well as all trocar sites were closed by 3/0 vicryl and 4-0 Monocryl to approximate the skin edges, dressing was applied in the form of surgical glue and the patient patient got extubated and was taken to recovery area in a stable condition. Count of sponges,needles and instruments were completed at the end of the procedure I was present for the whole entire procedure.
[2020-06-25] MEDS: HYDROcodone-acetaminophen 5-325 mg Tablet 1 TAB PO (08:51)
--- NOTE | 2020-06-25 16:09 | ANE.PACU2 ---
Inpatient post-anesthesia follow up: Airway intact: Yes Vital signs: Temperature 97 F Pulse Rate 77 Respiratory Rate 18 Blood Pressure 117/72 Pulse Oximetry 98 Oxygen Delivery Me thod Room Air Oxygen Flow Rate 8 Fraction of Inspir ed Oxygen Hydration adequate: Yes Nausea and vomiting: No Pain level: 1 Mental status: Baseline
== END 2020-06-25 09:35 | disposition home or self-care (01) ==
PROVIDERS: PCP Nurse Practitioner Family; Visit Provider Surgery
PROC: 0FT44ZZ Resection of Gallbladder, Percutaneous Endoscopic Approach (ICD-10-PCS; CPT 47562; principal; 2020-06-25 07:00)
DX: K80.10 Calculus of gallbladder with chronic cholecystitis without obstruction (principal); J44.9 Chronic obstructive pulmonary disease, unspecified; I10 Essential (primary) hypertension; F41.9 Anxiety disorder, unspecified; Z79.891 Long term (current) use of opiate analgesic; Z82.49 Family history of ischemic heart disease and other diseases of the circulatory system; F17.210 Nicotine dependence, cigarettes, uncomplicated; Z79.82 Long term (current) use of aspirin
CPT/HCPCS: 47562; 12345; 88304; J0131; J0690; J1100; J2405; J2704; J2710; J3010; J3490; J7030

== ENCOUNTER 2020-06-28 04:43 | Inpatient (IN) | payer MEDICAID, SELFPAY ==
[2020-06-28] VITALS (15 sets, daily range): BP systolic 118–169; BP diastolic 72–86; PULSE 77–109; RESP 16–35; TEMP 36.4–37.3; O2SAT 90–98; BMI 22.1
--- NOTE | 2020-06-28 04:50 | CTR_ITS ---
PROCEDURE INFORMATION: Exam: CT Abdomen And Pelvis With Contrast Exam date and time: 06/28/2020 4:55 AM Age: 64 years old Clinical indication: Abdominal pain; Localized; Prior surgery; Surgery type: Gb. Appy. ; Patient HX: Right sided abd pain with distention TECHNIQUE: Imaging protocol: Computed tomography of the abdomen and pelvis with contrast. Radiation optimization: All CT scans at this facility use at least one of these dose optimization techniques: automated exposure control; mA and/or kV adjustment per patient size (includes targeted exams where dose is matched to clinical indication); or iterative reconstruction. Contrast material: OMNI 300; Contrast volume: 95 ml; Contrast route: INTRAVENOUS (IV); COMPARISON: CT abdomen pelvis w con* [id number] 10/17/2019 1:20 AM RADIATION DOSE METRICS: Total DLP (mGy-cm): 380.48 FINDINGS: Lungs: There is mild atelectasis in the left lung base. Liver: There is a 12 mm benign cyst in the liver. No suspicious liver masses are seen. Gallbladder and bile ducts: Cholecystectomy. Normal bile ducts. Pancreas: There is stable mild dilatation of the pancreatic duct with a diameter of 4 mm. No pancreatic masses are seen.. Spleen: Normal. No splenomegaly. Adrenal glands: Normal. No mass. Kidneys and ureters: Stable small benign cysts present in each kidney. A punctate nonobstructing calcifications present in the right kidney. There is no hydronephrosis or suspicious renal mass. Stomach and bowel: There is prominence of the amount of stool throughout the colon consistent with constipation. There is no evidence of bowel obstruction dilatation or mural thickening. Appendix: Appendectomy. Intraperitoneal space: There is a small amount of nonspecific free fluid in the pelvis. Vasculature: There is atherosclerotic calcification of the aorta and iliac arteries but there is no aneurysm. Lymph nodes: Unremarkable. No enlarged lymph nodes. Urinary bladder: Unremarkable as visualized. Reproductive: Unremarkable as visualized. Bones/joints: Mild chronic degenerative changes are present in the spine. Soft tissues: Unremarkable. CT/CT abdomen pelvis w con* [id number] IMPRESSION: 1. No acute abnormalities are seen in the abdomen and pelvis. 2. Prominence of the amount of stool in the colon consistent with constipation. 3. Calcified atherosclerotic aorta. 4. Status post cholecystectomy and appendectomy. 5. Small amount of nonspecific free fluid in the pelvis. Radiation Dose CTDIVOL = (mGy): DLP = 380.48 (mGy-cm)
--- NOTE | 2020-06-28 04:51 | W.ED.ABDPA2 ---
Documented by User: Nia Rodas MD 06/28/20 04:52 HPI - Abdominal Pain General: Chief Complaint: Abdominal Pain Stated Complaint: abd pain/recent gall bladder removal Time Seen by Provider: 06/28/20 04:47 Source: patient Mode of arrival: ambulatory Limitations: no limitations History of Present Illness: HPI narrative: 64-year-old female who is postop cholecystectomy 3 days ago. Patient states that she started having severe abdominal pain roughly 3 hours ago. States the pain is very sharp in nature and rates it a 9 out of 10. States is much worse with any movement. She has had no vomiting or diarrhea or constipation. She states she has not been able to fill her pain meds since her surgery. She denies any fevers. MD elicited complaint: abdominal pain Pertinent past history: none Associated Symptoms: Denies chills, dysuria and fever(s) Review of Systems Const: Denies: fever(s), chills, body aches or change in appetite Eyes: Denies: blurry vision or eye discomfort ENMT: Denies: throat pain or dental pain Card: Denies: chest pain Resp: Denies: dyspnea GI: Reports: abdominal pain : Denies: dysuria Musc: Denies: neck pain or back pain Skin/Breast: Denies: rash Neuro: Denies: headache(s) Psych: Denies: depression [place]ist[place]/Lymph: Denies: easy bruising All/Imm: Denies: urticaria PFSH ED PFSH: Medical History (Updated 06/28/20 @ 10:21 by Boogie Sargent MD) Acute appendicitis with perforation and localized peritonitis Small contained localized perforation at the base of the appendix. Current every day smoker Hypertension Long-term current use of opiate analgesic Lumbosacral radiculopathy due to intervertebral disc disorder Opioid contract exists Spondylolisthesis of lumbar region Surgical History (Updated 06/20/20 @ 12:27 by Td White DPM) History of carpal tunnel surgery of left wrist History of colonoscopy (~2019) History of dilatation and curettage x 1 History of tonsillectomy History of tubal ligation Hx of appendectomy Dr. Kay 10/18/19 [facility] [place] History Other CAD (coronary artery disease) Denies family history of Anesthesia complication Bleeding disorder Social History Smoking and tobacco status: current every day smoker cigarettes Packs smoked per day: 0.5 Alcohol intake: never History of recent travel: No Physical Exam Const: COMMON NORMALS: no acute distress, patient oriented x3 and healthy appearing HENMT: COMMON NORMALS: normocephalic and atraumatic HEAD & SCALP: normocephalic and atraumatic Eye: COMMON NORMALS: Equal, round and reactive pupils present and EOMs intact bilaterally PUPIL: Yes Equal, round and reactive pupils present Neck/C-Spine: COMMON NORMALS: full ROM and supple Chest: COMMONS NORMALS: normal inspection of the chest and normal palpation of entire chest wall Resp: COMMON NORMALS: normal respiratory effort, No retractions, No use of accessory muscles and clear to auscultation bilaterally AUSCULTATION: clear to auscultation bilaterally Cardio: COMMON NORMALS: regular rate, regular rhythm and No murmurs present (Cardio) RATE: regular rate RHYTHM: regular rhythm GI: COMMON NORMALS: Normal to inspection, nondistended, normoactive bowel sounds present and no masses PALPATION: Yes Tenderness to palpation present (GI) Details: RLQ Extremity: COMMON NORMALS: normal to inspection and full ROM Neuro: COMMON NORMALS: patient oriented x3, moves all extremities and no focal motor deficits Psych: COMMON NORMALS: mental status grossly normal, Normal thought process present and cooperative THOUGHT PROCESS: Normal thought process present Skin: COMMON NORMALS: no rashes or lesions noted and no wounds GENERAL SKIN EXAM: no rashes or lesions noted Course Vital Signs: Vital signs: Vital Signs Temperature 97.5 F L 06/28/20 04:50 Pulse Rate 91 06/28/20 09:30 Respiratory Rate 22 H 06/28/20 07:25 Blood Pressure 119/73 06/28/20 09:30 Pulse Oximetry 91 06/28/20 09:30 MDM - Abdominal Pain Lab Data: Labs: Lab Results 06/28/20 06/28/20 06/28/20 Range/Units 04:55 04:55 04:55 WBC 8.2 (4.0-10.0) 10^3/ uL RBC 3.98 L (4.1-5.3) 10^6/u L Hgb 12.2 (11.5-15.3) g/dL Hct 36.7 L (37.0-47.0) % MCV 92.2 (81-99) fL MCH 30.7 (28.0-34.0) pg MCHC 33.2 (30.0-36.0) g/dL RDW 12.2 (12.1-15.1) % Plt Count 258 (130-400) 10^3/c mm MPV 9.4 (7.4-10.4) fL Neut % (Auto) 66.8 % Lymph % (Auto) 22.4 % [place] % (Auto) 9.0 % Eos % (Auto) 1.0 % Baso % (Auto) 0.6 % Neut # (Auto) 5.46 (1.8-7.7) 10^3/u L Lymph # (Auto) 1.8 (0.8-4.8) 10^3/u L [place] # (Auto) 0.7 (0.2-0.9) 10^3/u L Eos # (Auto) 0.1 (0.0-0.8) 10^3/u L Baso # (Auto) 0.1 (0.0-0.1) 10^3/u L Nucleated RBC % (a uto) 0 % Nucleated RBCs # 0.0 /100WBC Sodium 139 (136-145) mmol/L Potassium 3.5 (3.5-5.1) mmol/L Chloride 100 (98-107) mmol/L Carbon Dioxide 27 (22-29) mmol/L Anion Gap 15.5 (5-19) BUN 21 (8-23) mg/dL Creatinine 0.7 (0.5-0.9) mg/dL GFR Calculation 84.5 L (90-130) mL/min Glucose 121 H (65-115) mg/dL Calculated Osmolal ity 292 (285-295) mOsm/k g Lactate 1.0 (0.5-2.2) mmol/L Calcium 9.2 (8.5-10.5) mg/dL Total Bilirubin 0.4 (0.15-1.2) mg/dL AST 1732 H (0-32) U/L ALT 1183 H (0-33) U/L Alkaline Phosphata se 283 H (35-105) IU/L Total Protein 7.8 (6.6-8.7) g/dL Albumin 4.6 (3.5-5.2) g/dL Globulin 3.2 (1.3-4.6) g/dL Lipase 24 (13-60) U/L Urine Color (Yellow) Urine Appearance (CLEAR) Urine pH (5-7) Ur Specific Gravit y (1.005-1.030) Urine Protein (Negative) Urine Glucose (UA) (Normal) Urine Ketones (Negative) Urine Blood (Negative) Urine Nitrate (Negative) Urine Bilirubin (Negative) Urine Urobilinogen (Negative) mg/dL Ur Leukocyte Lilly ase (Negative) Urine RBC (0-2) /hpf Urine WBC (0-5) /hpf Ur Squamous Epith Cells (0-5) /hpf Amorphous Sediment Urine Bacteria (NONE) /hpf Urine Mucus /hpf 06/28/20 Range/Units 06:14 WBC (4.0-10.0) 10^3/ uL RBC (4.1-5.3) 10^6/u L Hgb (11.5-15.3) g/dL Hct (37.0-47.0) % MCV (81-99) fL MCH (28.0-34.0) pg MCHC (30.0-36.0) g/dL RDW (12.1-15.1) % Plt Count (130-400) 10^3/c mm MPV (7.4-10.4) fL Neut % (Auto) % Lymph % (Auto) % [place] % (Auto) % Eos % (Auto) % Baso % (Auto) % Neut # (Auto) (1.8-7.7) 10^3/u L Lymph # (Auto) (0.8-4.8) 10^3/u L [place] # (Auto) (0.2-0.9) 10^3/u L Eos # (Auto) (0.0-0.8) 10^3/u L Baso # (Auto) (0.0-0.1) 10^3/u L Nucleated RBC % (a uto) % Nucleated RBCs # /100WBC Sodium (136-145) mmol/L Potassium (3.5-5.1) mmol/L Chloride (98-107) mmol/L Carbon Dioxide (22-29) mmol/L Anion Gap (5-19) BUN (8-23) mg/dL Creatinine (0.5-0.9) mg/dL GFR Calculation (90-130) mL/min Glucose (65-115) mg/dL Calculated Osmolal ity (285-295) mOsm/k g Lactate (0.5-2.2) mmol/L Calcium (8.5-10.5) mg/dL Total Bilirubin (0.15-1.2) mg/dL AST (0-32) U/L ALT (0-33) U/L Alkaline Phosphata se (35-105) IU/L Total Protein (6.6-8.7) g/dL Albumin (3.5-5.2) g/dL Globulin (1.3-4.6) g/dL Lipase (13-60) U/L Urine Color Yellow (Yellow) Urine Appearance Clear (CLEAR) Urine pH 5.0 (5-7) Ur Specific Gravit y 1.005 (1.005-1.030) Urine Protein Neg (Negative) Urine Glucose (UA) Norm (Normal) Urine Ketones Negative (Negative) Urine Blood Neg (Negative) Urine Nitrate Negative (Negative) Urine Bilirubin Neg (Negative) Urine Urobilinogen Norm (Negative) mg/dL Ur Leukocyte Lilly ase Trace H (Negative) Urine RBC None (0-2) /hpf Urine WBC 0-4 H (0-5) /hpf Ur Squamous Epith Cells 5-10 H (0-5) /hpf Amorphous Sediment Not Reportable Urine Bacteria Trace (NONE) /hpf Urine Mucus Trace /hpf Discharge Plan Discharge Patient Disposition: Admitted As Inpatient Clinical Impression: Acute hepatitis Condition: Stable Prescriptions: No Action gabapentin [Neurontin] 300 mg capsule 300 mg PO TID 30 Days Qty: 90 RF: 2 ibuprofen 800 mg tablet 800 mg PO BID PRN (Reason: pain) 30 Days Qty: 60 RF: 2 Hold Instructions: Resume on 06/29/20. methocarbamol 500 mg tablet 500 mg PO TID PRN (Reason: spasms) 30 Days Qty: 90 RF: 2 acetaminophen-codeine 300-30 mg tablet 1 tab PO BID PRN (Reason: pain) 7 Days Qty: 60 RF: 1 trazodone 100 mg tablet 100 mg PO .BEDTIME PRN (Reason: Insomnia) RF: 0 amitriptyline 75 mg tablet 75 mg PO QDAY PRN (Reason: Insomnia) RF: 0 lovastatin 20 mg tablet 20 mg PO QDAY RF: 0 aspirin [Adult Aspirin Regimen] 81 mg tablet,delayed release (DR/EC) 81 mg PO QDAY RF: 0 lisinopril 20 mg tablet 20 mg PO QDAY RF: 0 [id number] [Fiorinal] 50-325-40 mg capsule 1 cap PO DAILY PRN (Reason: pain) Qty: 30 RF: 2 omega 9-ohk-hew-fish oil [Fish Oil] 1,200 (144-216) mg Capsule 1 cap PO DAILY RF: 0 [place] 5-325 mg tablet 1 tab PO Q6H PRN (Reason: pain) Qty: 20 RF: 0 Referrals: Lisa Olea FNP [Primary Care Provider] - Coding Level of Care Code ED Crew Supervisor for Chg Fwd Exam Comprehensive Documented by User: Boogie Sargent MD 06/28/20 10:21 HPI - Abdominal Pain General: Chief Complaint: Abdominal Pain Stated Complaint: abd pain/recent gall bladder removal Time Seen by Provider: 06/28/20 04:47 [facility] ED PFSH: Medical History (Updated 06/28/20 @ 10:21 by Boogie Sargent MD) Acute appendicitis with perforation and localized peritonitis Small contained localized perforation at the base of the appendix. Current every day smoker Hypertension Long-term current use of opiate analgesic Lumbosacral radiculopathy due to intervertebral disc disorder Opioid contract exists Spondylolisthesis of lumbar region Surgical History (Updated 06/20/20 @ 12:27 by Td White DPM) History of carpal tunnel surgery of left wrist History of colonoscopy (~2019) History of dilatation and curettage x 1 History of tonsillectomy History of tubal ligation Hx of appendectomy Dr. Kay 10/18/19 [facility] [place] Family History Other CAD (coronary artery disease) Denies family history of Anesthesia complication Bleeding disorder Social History Smoking and tobacco status: current every day smoker cigarettes Packs smoked per day: 0.5 Alcohol intake: never History of recent travel: No Course Vital Signs: Vital signs: Vital Signs Temperature 97.5 F L 06/28/20 04:50 Pulse Rate 91 06/28/20 09:30 Respiratory Rate 22 H 06/28/20 07:25 Blood Pressure 119/73 06/28/20 09:30 Pulse Oximetry 91 06/28/20 09:30 MDM - Abdominal Pain MDM Narrative: Medical decision making narrative: Patient with no significant abnormality noted on imaging however does have significant elevation of LFTs consistent with an acute hepatitis of some sort. Exact etiology unknown at this time. Will admit patient to the hospitalist for further evaluation. Dr. Guerrero accepting. Lab Data: Labs: Lab Results 06/28/20 06/28/20 06/28/20 Range/Units 04:55 04:55 04:55 WBC 8.2 (4.0-10.0) 10^3/ uL RBC 3.98 L (4.1-5.3) 10^6/u L Hgb 12.2 (11.5-15.3) g/dL Hct 36.7 L (37.0-47.0) % MCV 92.2 (81-99) fL MCH 30.7 (28.0-34.0) pg MCHC 33.2 (30.0-36.0) g/dL RDW 12.2 (12.1-15.1) % Plt Count 258 (130-400) 10^3/c mm MPV 9.4 (7.4-10.4) fL Neut % (Auto) 66.8 % Lymph % (Auto) 22.4 % [place] % (Auto) 9.0 % Eos % (Auto) 1.0 % Baso % (Auto) 0.6 % Neut # (Auto) 5.46 (1.8-7.7) 10^3/u L Lymph # (Auto) 1.8 (0.8-4.8) 10^3/u L [place] # (Auto) 0.7 (0.2-0.9) 10^3/u L Eos # (Auto) 0.1 (0.0-0.8) 10^3/u L Baso # (Auto) 0.1 (0.0-0.1) 10^3/u L Nucleated RBC % (a uto) 0 % Nucleated RBCs # 0.0 /100WBC Sodium 139 (136-145) mmol/L Potassium 3.5 (3.5-5.1) mmol/L Chloride 100 (98-107) mmol/L Carbon Dioxide 27 (22-29) mmol/L Anion Gap 15.5 (5-19) BUN 21 (8-23) mg/dL Creatinine 0.7 (0.5-0.9) mg/dL GFR Calculation 84.5 L (90-130) mL/min Glucose 121 H (65-115) mg/dL Calculated Osmolal ity 292 (285-295) mOsm/k g Lactate 1.0 (0.5-2.2) mmol/L Calcium 9.2 (8.5-10.5) mg/dL Total Bilirubin 0.4 (0.15-1.2) mg/dL AST 1732 H (0-32) U/L ALT 1183 H (0-33) U/L Alkaline Phosphata se 283 H (35-105) IU/L Total Protein 7.8 (6.6-8.7) g/dL Albumin 4.6 (3.5-5.2) g/dL Globulin 3.2 (1.3-4.6) g/dL Lipase 24 (13-60) U/L Urine Color (Yellow) Urine Appearance (CLEAR) Urine pH (5-7) Ur Specific Gravit y (1.005-1.030) Urine Protein (Negative) Urine Glucose (UA) (Normal) Urine Ketones (Negative) Urine Blood (Negative) Urine Nitrate (Negative) Urine Bilirubin (Negative) Urine Urobilinogen (Negative) mg/dL Ur Leukocyte Lilly ase (Negative) Urine RBC (0-2) /hpf Urine WBC (0-5) /hpf Ur Squamous Epith Cells (0-5) /hpf Amorphous Sediment Urine Bacteria (NONE) /hpf Urine Mucus /hpf 06/28/20 Range/Units 06:14 WBC (4.0-10.0) 10^3/ uL RBC (4.1-5.3) 10^6/u L Hgb (11.5-15.3) g/dL Hct (37.0-47.0) % MCV (81-99) fL MCH (28.0-34.0) pg MCHC (30.0-36.0) g/dL RDW (12.1-15.1) % Plt Count (130-400) 10^3/c mm MPV (7.4-10.4) fL Neut % (Auto) % Lymph % (Auto) % [place] % (Auto) % Eos % (Auto) % Baso % (Auto) % Neut # (Auto) (1.8-7.7) 10^3/u L Lymph # (Auto) (0.8-4.8) 10^3/u L [place] # (Auto) (0.2-0.9) 10^3/u L Eos # (Auto) (0.0-0.8) 10^3/u L Baso # (Auto) (0.0-0.1) 10^3/u L Nucleated RBC % (a uto) % Nucleated RBCs # /100WBC Sodium (136-145) mmol/L Potassium (3.5-5.1) mmol/L Chloride (98-107) mmol/L Carbon Dioxide (22-29) mmol/L Anion Gap (5-19) BUN (8-23) mg/dL Creatinine (0.5-0.9) mg/dL GFR Calculation (90-130) mL/min Glucose (65-115) mg/dL Calculated Osmolal ity (285-295) mOsm/k g Lactate (0.5-2.2) mmol/L Calcium (8.5-10.5) mg/dL Total Bilirubin (0.15-1.2) mg/dL AST (0-32) U/L ALT (0-33) U/L Alkaline Phosphata se (35-105) IU/L Total Protein (6.6-8.7) g/dL Albumin (3.5-5.2) g/dL Globulin (1.3-4.6) g/dL Lipase (13-60) U/L Urine Color Yellow (Yellow) Urine Appearance Clear (CLEAR) Urine pH 5.0 (5-7) Ur Specific Gravit y 1.005 (1.005-1.030) Urine Protein Neg (Negative) Urine Glucose (UA) Norm (Normal) Urine Ketones Negative (Negative) Urine Blood Neg (Negative) Urine Nitrate Negative (Negative) Urine Bilirubin Neg (Negative) Urine Urobilinogen Norm (Negative) mg/dL Ur Leukocyte Lilly ase Trace H (Negative) Urine RBC None (0-2) /hpf Urine WBC 0-4 H (0-5) /hpf Ur Squamous Epith Cells 5-10 H (0-5) /hpf Amorphous Sediment Not Reportable Urine Bacteria Trace (NONE) /hpf Urine Mucus Trace /hpf Discharge Plan Discharge Patient Disposition: Admitted As Inpatient Clinical Impression: Acute hepatitis Condition: Stable Prescriptions: No Action gabapentin [Neurontin] 300 mg capsule 300 mg PO TID 30 Days Qty: 90 RF: 2 ibuprofen 800 mg tablet 800 mg PO BID PRN (Reason: pain) 30 Days Qty: 60 RF: 2 Hold Instructions: Resume on 06/29/20. methocarbamol 500 mg tablet 500 mg PO TID PRN (Reason: spasms) 30 Days Qty: 90 RF: 2 acetaminophen-codeine 300-30 mg tablet 1 tab PO BID PRN (Reason: pain) 7 Days Qty: 60 RF: 1 trazodone 100 mg tablet 100 mg PO .BEDTIME PRN (Reason: Insomnia) RF: 0 amitriptyline 75 mg tablet 75 mg PO QDAY PRN (Reason: Insomnia) RF: 0 lovastatin 20 mg tablet 20 mg PO QDAY RF: 0 aspirin [Adult Aspirin Regimen] 81 mg tablet,delayed release (DR/EC) 81 mg PO QDAY RF: 0 lisinopril 20 mg tablet 20 mg PO QDAY RF: 0 [id number] [Fiorinal] 50-325-40 mg capsule 1 cap PO DAILY PRN (Reason: pain) Qty: 30 RF: 2 omega 7-iyn-xll-fish oil [Fish Oil] 1,200 (144-216) mg Capsule 1 cap PO DAILY RF: 0 [place] 5-325 mg tablet 1 tab PO Q6H PRN (Reason: pain) Qty: 20 RF: 0 Referrals: Lisa Olea FNP [Primary Care Provider] - Coding Level of Care Code ED Crew Supervisor for Chg Fwd Exam Comprehensive
[2020-06-28] MEDS: ondansetron 2 mg/ML SDV 2 mL 4 MG IVP (04:56)
[2020-06-28] MEDS: sodium chloride 0.9% 1,000 ML 999 ML IV (04:57)
[2020-06-28] MEDS: HYDROmorphone 1 mg/mL INJ 1 mL IVP ×2 (05:01→11:03)
[2020-06-28 05:05] LABS: Basophils # 0.1 10^3/uL (0.0-0.1); Basophils % 0.6 %; Eosinophils # 0.1 10^3/uL (0.0-0.8); Hematocrit 36.7 % (37.0-47.0); Hemoglobin 12.2 g/dL (11.5-15.3); Lymphocytes # 1.8 10^3/uL (0.8-4.8); Lymphocytes % 22.4 %; Mean Corpuscular HGB Conc 33.2 g/dL (30.0-36.0); Mean Corpuscular Hemoglobin 30.7 pg (28.0-34.0); Mean Corpuscular Volume 92.2 fL (81-99); Mean Platelet Volume 9.4 fL (7.4-10.4); Monocytes # 0.7 10^3/uL (0.2-0.9); Neutrophils # 5.46 10^3/uL (1.8-7.7); Neutrophils % 66.8 %; Nucleated Red Blood Cells % 0 %; Platelet Count 258 10^3/cmm (130-400); Red Blood Count 3.98 10^6/uL (4.1-5.3); Red Cell Distribution Width 12.2 % (12.1-15.1); White Blood Count 8.2 10^3/uL (4.0-10.0)
[2020-06-28 05:25] LABS: Albumin Level 4.6 g/dL (3.5-5.2); Alkaline Phosphatase 283 IU/L (35-105); Anion Gap 15.5 (5-19); Blood Urea Nitrogen 21 mg/dL (8-23); Calcium 9.2 mg/dL (8.5-10.5); Carbon Dioxide 27 mmol/L (22-29); Chloride 100 mmol/L (98-107); Globulin 3.2 g/dL (1.3-4.6); Glomerular Filtration Rate 84.5 mL/min (90-130); Glucose 121 mg/dL (65-115); Lipase 24 U/L (13-60); Osmolality Calculated 292 mOsm/kg (285-295); Potassium 3.5 mmol/L (3.5-5.1); Sodium 139 mmol/L (136-145); Total Bilirubin 0.4 mg/dL (0.15-1.2); Total Protein 7.8 g/dL (6.6-8.7)
[2020-06-28] MEDS: morphine 4 mg/mL SDV 1 mL IVP ×2 (05:26→07:23)
[2020-06-28 05:40] LABS: Alanine Aminotransferase 1183 U/L (0-33)
[2020-06-28] MEDS: iohexol 300 mg/mL 100 mL Btl IV (05:43)
[2020-06-28 05:44] LABS: Aspartate Amino Transferase 1732 U/L (0-32)
[2020-06-28 06:33] LABS: Add Urine Microscopic? YES; Bacteria Urine TRACE /hpf; Bilirubin Urine Neg (Negative); Blood Urine Neg (Negative); Glucose Urine UA Norm (Normal); Ketones Urine Negative (Negative); Leukocyte Esterase Urine Trace (Negative); Mucus Urine TRACE /hpf; Nitrate Urine Negative (Negative); Protein Urine Neg (Negative); Specific Gravity, Urine 1.005 (1.005-1.030); Urine Appearance Clear (CLEAR); Urine Color Yellow (Yellow); Urobilinogen Urine Norm (Negative); WBC Urine 0-4 /hpf (0-5)
[2020-06-28 06:34] LABS: Add Urine Culture? No
--- NOTE | 2020-06-28 07:26 | MR_ITS ---
WS: [id number] MRI/MRCP OF THE ABDOMEN WITHOUT GADOLINIUM ENHANCEMENT TECHNIQUE: Thin and thick slab MRCP, Axial T2, Coronal MRCP, Axial Dual Echo, and Axial 2-D Fiesta imaging was obtained. Coronal 2-D Fiesta imaging. CLINICAL INFORMATION: RUQ pain and elevated LFTS post op COMPARISON: CT June 28, 2020 FINDINGS: Recent postoperative changes cholecystectomy. Mild diffuse fatty infiltration the liver with mild int rahepatic biliary duct dilatation. Normal common bile duct. Normal tapering of the common bile duct d istally. No evidence of choledocholithiasis. Mild dilatation of proximal common bile duct measuring 7 .3 mm. Pancreas is normal in appearance. Mild dilatation of the pancreatic duct. Small fluid collecti on the gallbladder fossa and along the undersurface of the liver consistent with normal postoperative change. Incidental hepatic cysts. Adrenal glands are normal. No hydronephrosis in either kidney. Small renal cysts. MR/MR MRCP [id number] Impression: 1. Recent postoperative changes cholecystectomy with a small amount of fluid i n the gallbladder fossa along the undersurface the right hepatic lobe consisten t with expected postoperative change. 2. Mild prominence the common bile duct but no evidence of choledocholithiasis . Normal tapering of the common bile duct distally. 3. Mild intrahepatic biliary ductal dilatation unchanged since October 17, 2019. 4. Incidental hepatic and renal cysts. 5. No evidence of pancreatic mass or lesion. Mild prominence of the pancreatic duct. 6. Hepatomegaly.
--- NOTE | 2020-06-28 08:00 | PM.PN ---
Subjective Subjective: Interval history: Patient reports that she has worsening right upper quadrant abdominal pain, patient undergone uneventful laparoscopic cholecystectomy 06/25/2020, and was discharged home the same day. Pathology did show: A. Gallbladder, laparoscopic cholecystectomy: ?Chronic cholecystitis. ?Cholelithiasis. Because of the worsening right upper quadrant abdominal pain patient presented to the emergency department, pain mostly in the right upper quadrant not being referred. Further blood work showed quite elevated liver function tests yet normal bilirubin and undergone a CT scan of the abdomen and pelvis that showed: Lungs: There is mild atelectasis in the left lung base. Liver: There is a 12 mm benign cyst in the liver. No suspicious liver masses are seen. Gallbladder and bile ducts: Cholecystectomy. Normal bile ducts. Pancreas: There is stable mild dilatation of the pancreatic duct with a diameter of 4 mm. No pancreatic masses are seen.. Spleen: Normal. No splenomegaly. Adrenal glands: Normal. No mass. Kidneys and ureters: Stable small benign cysts present in each kidney. A punctate nonobstructing calcifications present in the right kidney. There is no hydronephrosis or suspicious renal mass. Stomach and bowel: There is prominence of the amount of stool throughout the colon consistent with constipation. There is no evidence of bowel obstruction dilatation or mural thickening. Appendix: Appendectomy. Intraperitoneal space: There is a small amount of nonspecific free fluid in the pelvis. Vasculature: There is atherosclerotic calcification of the aorta and iliac arteries but there is no aneurysm. Lymph nodes: Unremarkable. No enlarged lymph nodes. Urinary bladder: Unremarkable as visualized. Reproductive: Unremarkable as visualized. Bones/joints: Mild chronic degenerative changes are present in the spine. Soft tissues: Unremarkable. CT/CT abdomen pelvis w con* [id number] IMPRESSION: 1. No acute abnormalities are seen in the abdomen and pelvis. 2. Prominence of the amount of stool in the colon consistent with constipation. 3. Calcified atherosclerotic aorta. 4. Status post cholecystectomy and appendectomy. 5. Small amount of nonspecific free fluid in the pelvis. Patient was seen and evaluated in the emergency department room #13 Vitals/I&O/Wt Last Vital Signs Temp 97.5 F L 06/28/20 04:50 Pulse 91 06/28/20 07:25 Resp 22 H 06/28/20 07:25 BP 126/72 06/28/20 07:25 Pulse Ox 98 06/28/20 07:25 06/27/20 06/28/20 06/28/20 22:59 06:59 14:59 Intake Total 1000 / 1000 Balance 1000 / 1000 Weight last 48 hrs Weight 137 lb Physical Exam Narrative: EXAM NARRATIVE: Patient is conscious alert oriented X3 BMI 22.1 Head and neck examination PERRLA no masses no cervical lymphadenopathy no jaundice Cardiac examination audible S1-S2 no murmurs no gallops no arrhythmias Chest is clear bilateral,abscence of Rhonchi or wheezes,no surgical emphysema Abdomen right upper quadrant tenderess nondistended soft no organomegaly guarding or rigidity/no signs of peritonitis Extremities no cyanosis no clubbing no edema Data : 06/28/20 04:55 06/28/20 04:55 A&P Assessment and plan (1) Right upper quadrant pain: After history taking physical examination and reviewing the chart and images with my personal interpretation, I do not see any obstructive pathology related to the biliary system and there is no evidence of intra or extrahepatic biliary dilation. I would recommend to obtain an MRCP to have a better underlying delineation of the patient's surgical anatomy I did ask my partner in the emergency department to send for further blood work(complete hepatitis panel) to rule out hepatitis. IV fluid hydration Assurance and education All questions have been answered and all concerns have been addressed to patient's satisfaction. Status: Acute Attestations Medical Necessity Statement*: Observation for IV fluid hydration and repeat blood work Time Spent in Patient Care: (>than 50% of time spent in counselling and/or direct pt care on unit). Coding Level of Care Code Acute Rapid Extractor Operator for [facility] Fwd Diagnoses Right upper quadrant pain R10.11
--- NOTE | 2020-06-28 08:12 | PC.NURSE ---
pt went to MRI by ambulance
--- NOTE | 2020-06-28 08:54 | PC.NURSE ---
pt return from MRI by ambulance
--- NOTE | 2020-06-28 11:22 | PM.HP ---
Providers/Chief Complaint Admitting Physician: Emeterio Guerrero MD Primary Care Provider: Lisa Olea Chief Complaint: abd pain/recent gall bladder removal History of Present Illness Kassy Thomas is a 64 year old female presents to emergency department with severe right upper quadrant abdominal pain radiating circumferentially to her back. This started at 2 AM when pain woke patient up. Reports that she went to sleep last night in her normal usual state of health. Last time she ate was around 9 PM. She did not change recently her diet or was prescribed any new medications. She had cholecystectomy 3 days ago which was uneventful. She denied any fever or chills. Denied alleviating or aggravating factors. Reports that pain is severe and constant, dull achy. She denies any problems with bowel movement and denies diarrhea. She denies any sick contacts. She is not sexually active. Her last sexual encounter was 3 years ago. She lives with her boyfriend. She denies nausea or vomiting. Denies chest pain or shortness of breath. Reports being active. Denies family history of autoimmune disease. In ER she was evaluated with CT scan and MRI showing no significant findings that would explain patient's pain. She had normal postop findings. Her AST and ALT are significantly elevated with minimal elevation of alkaline phosphatase. Her bilirubin is normal. In ER patient was given IV Dilaudid which did not improve her pain at all and she continues to have pretty severe pain. She also reports that for many years she has been having pain from hip down to her leg on either side depending on what side she was sleeping on. This usually lasts short period time and goes away in the morning. Patient reports that at home she has not been taking Tylenol and mostly was using ibuprofen. Review of Systems Const: Denies: fever(s) or chills Eyes: Denies: change in vision ENMT: Denies: throat pain or change in hearing Card: Denies: chest pain, edema or lightheadedness Resp: Denies: dyspnea or productive cough GI: Reports: abdominal pain; Denies: nausea, vomiting, dysphagia, diarrhea, constipation, hematochezia or melena : Denies: difficulty voiding Musc: Denies: joint pain or joint swelling Skin/Breast: Denies: rash or erythema Neuro: Denies: headache(s) or weakness in extremities Psych: Denies: depression or suicidal ideation Endo: Denies: excessive sweating Tristian/Lymph: Denies: easy bleeding or tender lymph nodes All/Imm: Denies: throat swelling Medications/Allergies Home Medications Medication Instructions Recorded Confirmed Last Taken Type amitriptyline 75 mg tablet 75 mg PO QDAY PRN 06/09/19 06/25/20 1 Day Ago History ~06/24/20 aspirin 81 mg tablet,delayed 81 mg PO QDAY 06/09/19 06/25/20 1 Day Ago History release ~06/24/20 lisinopril 20 mg tablet 20 mg PO QDAY 06/09/19 06/25/20 1 Day Ago History ~06/24/20 lovastatin 20 mg tablet 20 mg PO QDAY 06/09/19 06/25/20 1 Day Ago History ~06/24/20 trazodone 100 mg tablet 100 mg PO .BEDTIME PRN tab 06/09/19 06/25/20 1 Day Ago History ~06/24/20 fgfxiezfow-vzpknrt-rysrngtz 50 1 cap PO DAILY PRN #30 cap 01/17/20 06/25/20 1 Week Ago Rx mg-325 mg-40 mg capsule ~06/18/20 ibuprofen 800 mg tablet 800 mg PO BID PRN 30 Days #60 tab 05/01/20 06/25/20 1 Day Ago Rx ~06/24/20 omega 6-ggf-ixg-fish oil [Fish Oil] 1 cap PO DAILY 06/24/20 06/25/20 1 Day Ago History ~06/24/20 hydrocodone-acetaminophen [[place]] 1 tab PO Q6H PRN #20 tab 06/25/20 Unknown Rx acetaminophen-codeine 1 tab PO BID@, PRN 06/28/20 06/28/20 06/27/20 History gabapentin [Neurontin] 300 mg PO TID@,06/28/20 06/28/20 06/27/20 History methocarbamol 500 mg PO TID@,, PRN 06/28/20 06/28/20 06/27/20 History Allergies Allergy/AdvReac Type Severity Reaction Status Date / Time tramadol Allergy Unknown Verified 06/28/20 04:54 doxycycline AdvReac BEHAVIORAL Verified 06/28/20 04:54 CHANGES hydrocodone AdvReac CAUSES Verified 06/28/20 04:54 PATIENT TO FEEL WIRED PFSH Acute PFSH: Medical History Acute appendicitis with perforation and localized peritonitis Small contained localized perforation at the base of the appendix. Current every day smoker Hypertension Long-term current use of opiate analgesic Lumbosacral radiculopathy due to intervertebral disc disorder Opioid contract exists Spondylolisthesis of lumbar region Surgical History History of carpal tunnel surgery of left wrist History of colonoscopy (~2019) History of dilatation and curettage x 1 History of tonsillectomy History of tubal ligation Hx of appendectomy Dr. Kay 10/18/19 [facility] Family History Other CAD (coronary artery disease) Denies family history of Anesthesia complication Bleeding disorder Social History Smoking and tobacco status: current every day smoker cigarettes Packs smoked per day: 0.5 Alcohol intake: never History of recent travel: No Vitals/I&O/Wt Last Vital Signs Temp 97.5 F L 06/28/20 04:50 Pulse 105 H 06/28/20 10:55 Resp 22 H 06/28/20 07:25 BP 129/73 06/28/20 10:55 Pulse Ox 93 06/28/20 10:55 06/27/20 06/28/20 06/28/20 22:59 06:59 14:59 Intake Total 1000 / 1000 Balance 1000 / 1000 Weight last 48 hrs Weight 62.142 kg Physical Exam Const: COMMON NORMALS: no acute distress, patient oriented x3 and alert HENMT: COMMON NORMALS: normocephalic and atraumatic HEAD & SCALP: normocephalic and atraumatic Eye: COMMON NORMALS: EOMs intact bilaterally, conjunctivae normal and no scleral icterus CONJUNCTIVA: Yes conjunctivae normal Neck/C-Spine: COMMON NORMALS: no lymphadenopathy and no meningeal signs Lymph: LYMPHATIC: no lymphadenopathy noted Chest: COMMONS NORMALS: normal palpation of entire chest wall Resp: COMMON NORMALS: No use of accessory muscles and clear to auscultation bilaterally AUSCULTATION: clear to auscultation bilaterally Cardio: COMMON NORMALS: regular rate and regular rhythm RATE: regular rate RHYTHM: regular rhythm OTHER: No lower extremity edema. 2 out of 6 systolic murmur best heard at the right upper sternal border. GI: COMMON NORMALS: Soft to palpation PALPATION: Yes Soft to palpation RECTAL EXAM: deferred OTHER: Significantly tender to palpation at the right upper quadrant and to the side. No rebound tenderness or but does have some guarding : COMMON NORMALS: Yes no CVA tenderness BLADDER/KIDNEY EXAM: Yes no CVA tenderness Back/Pelvis: COMMON NORMALS: no CVA tenderness and thoracic and lumbar spine normal to inspection Extremity: COMMON NORMALS: normal to inspection and capillary refill normal Neuro: COMMON NORMALS: patient oriented x3 and no focal motor deficits SENSORIUM/ORIENTATION: Yes alert MENINGEAL SIGNS: Yes no meningeal signs Psych: COMMON NORMALS: mental status grossly normal, Normal thought process present and cooperative THOUGHT PROCESS: Normal thought process present Skin: COMMON NORMALS: no rashes or lesions noted GENERAL SKIN EXAM: no rashes or lesions noted Data : 06/28/20 04:55 06/28/20 04:55 A&P Assessment and plan (1) Acute hepatitis: This could be medication induced including secondary to anesthetic. Status: Acute (2) SIRS (systemic inflammatory response syndrome): As exhibited by tachycardia and tachypnea. Patient was afebrile with normal white blood cell count. No evidence of infectious process at this point Status: Acute Additional A&P Information PLAN: Patient's etiology of acute hepatitis is not clear at this point and given her severe pain I suspect significant stretching of liver capsule. PT/PTT requested along with Tylenol level Dr. Sargent, ER physician contacted GI specialist in [place] and it was recommended to continue pain control as well as evaluate daily PT PTT and if worsening consider transferring [facility] for liver [facility] evaluation. We will continue gentle IV hydration. Attestations Medical Necessity Statement*: Patient with acute hepatitis and severe pain requires close inpatient monitoring and treatment. I expect patient will require more than 2 midnights. Time Spent in Patient Care: Greater than 35 minutes (>than 50% of time spent in counselling and/or direct pt care on unit). Coding Level of Care Code Acute Director Of Consumer Marketing for [facility] Fwd Exam Comprehensive Diagnoses Acute hepatitis B17.9 SIRS (systemic inflammatory response syndrome) R65.10
[2020-06-28 11:30] LABS: Hepatitis A Antibody IgM Non-Reactive (Nonreactive); Hepatitis B Core IgM Non-Reactive (Nonreactive); Hepatitis B Surface Antigen Non-Reactive (Nonreactive); Hepatitis C Virus Antibody Non-Reactive (Nonreactive)
[2020-06-28 11:37] LABS: INR 0.93 (0.8-1.2)
[2020-06-28 11:39] LABS: Acetaminophen < 5.0 ug/mL (10-30)
[2020-06-28 11:51] LABS: Partial Thromboplastin Time 29.4 SECONDS (23.9-36.7)
[2020-06-28] MEDS: lactated ringers 1,000 ML 100 ML IV (15:28)
[2020-06-28] MEDS: enoxaparin 40 mg/0.4 mL Syringe SUBCUT (15:32)
--- NOTE | 2020-06-28 17:27 | PC.RESP ---
Smoking Cessation information sent to patient.
[2020-06-28] MEDS: pantoprazole DR 40 mg Tablet PO (18:09)
[2020-06-29 00:38] VITALS: BP 158/76; PULSE 92; RESP 18; TEMP 36.7; O2SAT 94
[2020-06-29] MEDS: lactated ringers 1,000 ML 100 ML IV ×2 (01:35→09:52)
[2020-06-29 03:58] VITALS: BP 172/85; PULSE 83; RESP 18; TEMP 36.8; O2SAT 96
[2020-06-29 06:36] LABS: Basophils % 0.4 %; Eosinophils # 0.1 10^3/uL (0.0-0.8); Eosinophils % 1.3 %; Hematocrit 34.6 % (37.0-47.0); Hemoglobin 11.6 g/dL (11.5-15.3); Lymphocytes # 1.8 10^3/uL (0.8-4.8); Lymphocytes % 27.1 %; Mean Corpuscular HGB Conc 33.5 g/dL (30.0-36.0); Mean Corpuscular Hemoglobin 30.9 pg (28.0-34.0); Mean Corpuscular Volume 92.3 fL (81-99); Mean Platelet Volume 10.2 fL (7.4-10.4); Monocytes # 0.5 10^3/uL (0.2-0.9); Monocytes % 7.2 %; Neutrophils # 4.31 10^3/uL (1.8-7.7); Neutrophils % 63.7 %; Nucleated Red Blood Cells % 0 %; Platelet Count 240 10^3/cmm (130-400); Red Blood Count 3.75 10^6/uL (4.1-5.3); Red Cell Distribution Width 12.2 % (12.1-15.1); White Blood Count 6.8 10^3/uL (4.0-10.0)
[2020-06-29 07:23] LABS: INR 1.04 (0.8-1.2)
[2020-06-29 07:24] LABS: Partial Thromboplastin Time 31.2 SECONDS (23.9-36.7)
[2020-06-29 07:38] VITALS: BP 169/88; PULSE 88; RESP 17; TEMP 37.1; O2SAT 92
[2020-06-29 07:43] LABS: NT Pro B Type Natriuretic Pept 132 pg/mL (0-125); Procalcitonin 0.07 ng/mL (0-0.5); Thyroid Stimulating Hormone 0.89 uIU/mL (0.27-4.20)
--- NOTE | 2020-06-29 07:50 | PM.PN ---
Subjective Subjective: Interval history: Patient overall feels better, no acute events overnight. GI service(Hepatology) was contacted by the ED yesterday and recommended conservative measures LFTs are trending down Vitals/I&O/Wt Last Vital Signs Temp 98.8 F 06/29/20 07:38 Pulse 88 06/29/20 07:38 Resp 17 06/29/20 07:38 BP 169/88 06/29/20 07:38 Pulse Ox 92 06/29/20 07:38 06/28/20 06/29/20 06/29/20 22:59 06:59 14:59 Intake Total 650 / 650 1000 / 1650 Output Total 800 / 800 Balance 650 / 650 200 / 850 Weight last 48 hrs Weight 137 lb Physical Exam Narrative: EXAM NARRATIVE: Patient is conscious alert oriented X3 BMI 22.1 Head and neck examination PERRLA no masses no cervical lymphadenopathy no jaundice Abdomen less tender in comparison to yesterday physical examination nondistended soft no organomegaly guarding or rigidity/no signs of peritonitis Extremities no cyanosis no clubbing no edema Data : 06/29/20 05:55 06/29/20 05:55 Micro: Microbiology 06/28/20 16:15 Blood Culture - Preliminary Blood SPECIMEN COLLECTED 06/28/20 16:08 Blood Culture - Preliminary Blood SPECIMEN COLLECTED A&P Assessment and plan (1) Right upper quadrant pain: Patient appears to feel better today From surgical standpoint of view based on history, physical examination and reviewing the CT scan and MRCP images with my personal interpretation, no surgical intervention ,the transaminitis pending work-up per hospitalist service. I appreciate Dr. Guerrero's care IV fluid hydration We will plan to see the patient as an outpatient for postop follow-up Clarisaley will require Hepatology follow up as outpatient Assurance and education All questions have been answered and all concerns have been addressed to patient's satisfaction. Status: Acute Attestations Medical Necessity Statement*: Continue hospitalization for medical care Time Spent in Patient Care: (>than 50% of time spent in counselling and/or direct pt care on unit). Coding Level of Care Code Acute Hotel Staff Member for [facility] Fwd Diagnoses Right upper quadrant pain R10.11
[2020-06-29 07:54] LABS: Alanine Aminotransferase 503 U/L (0-33); Albumin Level 4.1 g/dL (3.5-5.2); Alkaline Phosphatase 235 IU/L (35-105); Anion Gap 14.6 (5-19); Aspartate Amino Transferase 246 U/L (0-32); Blood Urea Nitrogen 8 mg/dL (8-23); Calcium 9.3 mg/dL (8.5-10.5); Carbon Dioxide 27 mmol/L (22-29); Chloride 101 mmol/L (98-107); Chol HDL Ratio 3.13 mg/dL (0.0-4.40); Cholesterol 150 mg/dL (0-200); Globulin 3.3 g/dL (1.3-4.6); Glomerular Filtration Rate 161.2 mL/min (90-130); Glucose 89 mg/dL (65-115); HDL Cholesterol 48 mg/dL (60-100); LDL Cholesterol Calculated 78 mg/dL (50-129); LDL HDL Ratio 1.63 RATIO (0.00-3.22); Magnesium 1.7 mg/dL (1.7-2.3); Osmolality Calculated 286 mOsm/kg (285-295); Phosphorus 2.5 mg/dL (2.5-4.5); Potassium 3.6 mmol/L (3.5-5.1); Sodium 139 mmol/L (136-145); Total Bilirubin 0.4 mg/dL (0.15-1.2); Total Protein 7.4 g/dL (6.6-8.7); Triglycerides 119 mg/dL (0-150)
[2020-06-29] MEDS: pantoprazole DR 40 mg Tablet PO ×2 (09:51→17:29)
--- NOTE | 2020-06-29 09:57 | P.PN_ITS ---
Subjective Subjective: Interval history: Patient reports feeling much better and only has minimal right upper quadrant pain on palpation. Reports that her pain significantly improved. She denies nausea and reports tolerating clear liquids well. Her liver enzymes much improved. Vitals/I&O/Wt Last Vital Signs Temp 98.8 F 06/29/20 07:38 Pulse 88 06/29/20 07:38 Resp 17 06/29/20 07:38 BP 169/88 06/29/20 07:38 Pulse Ox 92 06/29/20 07:38 06/28/20 06/29/20 06/29/20 22:59 06:59 14:59 Intake Total 650 / 650 1000 / 1650 1420 / 1420 Output Total 800 / 800 Balance 650 / 650 200 / 850 1420 / 1420 Weight last 48 hrs Weight 62.142 kg Physical Exam Narrative: EXAM NARRATIVE: Minimal right upper quadrant pain on palpation. Clear lungs and regular heart. No lower extremity edema. Data : 06/29/20 05:55 06/29/20 05:55 Micro: Microbiology 06/28/20 16:15 Blood Culture - Preliminary Blood SPECIMEN COLLECTED 06/28/20 16:08 Blood Culture - Preliminary Blood SPECIMEN COLLECTED A&P Assessment and plan (1) Acute hepatitis: This could be medication induced including secondary to anesthetic. Status: Acute (2) SIRS (systemic inflammatory response syndrome): Improved. Status: Acute Additional A&P Information PLAN: Will discontinue IV fluids. Encouraged oral intake. We will continue monitoring for 1 more day and if continues to improve we will likely be able to dismiss patient home tomorrow. Would like to see how much pain medication she will be using throughout the day. Would like to see patient's liver enzymes further improve prior to discharge. Attestations Medical Necessity Statement*: Patient was acute hepatitis requires close inpatient monitoring and treatment till deemed safe for discharge. Coding Level of Care Code Acute Machine Silver Stripper for [facility] Nicole Diagnoses Acute hepatitis B17.9 SIRS (systemic inflammatory response syndrome) R65.10
--- NOTE | 2020-06-29 11:11 | PC.CHAP ---
Pastoral Care Encounter/Spiritual Assessment Type of Contact [] Declined ammonia operator visit [] Patient/Family/Request visit [] Outpatient visit [] Follow-up visit [] Physician referral [] Code/Alert [XX] Routine visit [] Staff referral [] Actively dying [] Patient sleeping [] Family support [] [] Out of room [] Palliative care [] [] Receiving care in room [] Pre-surgical visit [] Trauma [] Long length of stay [] ICU visit [] Other: Relational/Emotional Strength [XX] Patient feels connected with others/family/visitors/staff [XX] Distress [] Loneliness/isolation [] Abandonment Spirituality of Patient [XX] Person of Sabrina [] Attends Mosque of their Sabrina [] Believes in Prayer [] Reads Bible or Restorationist materials [XX] There are Spiritual issues to be addressed Art Consultant Interventions [XX] Prayer [XX] Active listening [XX] Non-anxious presence [] Spiritual/emotional support [] Crisis/trauma care [] Spiritual counseling [] Bereavement support [] Provided bereavement packet [] Provided Bible/devotional materials [] Provided toy/stuffed animal, coloring book to patient or family member [] Provided Communion [] Anointing/Raymond [] Salvation [XX] Completed spiritual assessment [] Other: Impact on Illness or Injury [] Angry [] Fearful [] Anxious [] Often cries [] Exhaustion [] Unable to work [] Unable to attend baptist [] Unable to walk/stand [] Unable to read [] Unable to drive [] Unable to eat/drink [XX] Unable to sleep [] Unable to be with family [] Patient intubated [] Other: Summary: Pt reports that she cannot sleep. She states that she is a light sleeper and has a long history of insomnia for which she takes sleeping pill when at home. From a sabrina perspective, she was raised Baptist but has not attended mu-ism in a long time. She welcomed prayer but declined communion. Time spent with patient: 15 mins
[2020-06-29 11:19] VITALS: BP 149/81; PULSE 87; RESP 17; TEMP 37.3; O2SAT 94
[2020-06-29] MEDS: enoxaparin 40 mg/0.4 mL Syringe SUBCUT (15:11)
[2020-06-29 15:15] VITALS: BP 169/80; PULSE 91; RESP 18; TEMP 36.9; O2SAT 96
--- NOTE | 2020-06-29 16:27 | PC.NURSE ---
PATIENT CURRENTLY SLEEPING
--- NOTE | 2020-06-29 18:33 | PC.NURSE ---
SHIFT SUMMARY PATIENT ALERT AND ORIENTED X4. HAS BEEN CALM AND COOPERATIVE THROUGHOUT SHIFT. PATIENT WAS ABLE TO HAVE A LARGE BOWEL MOVEMENT THIS MORNING. HAS NOT REQUIRED PAIN MEDICATION TODAY. IV IN THE LEFT AC DID INFILTRATE AFTER PATIENT'S SHOWER; IV DC'ED AND RESTARTED ON RIGHT AC. PATIENT IS ABLE TO AMBULATE HERSELF AND IS READY TO GO HOME ,STATING SHE IS UNABLE TO GET ANY SLEEP WHILE SHE IS HERE.
[2020-06-29 20:00] VITALS: BP 174/89; PULSE 87; RESP 17; TEMP 36.9; O2SAT 97
[2020-06-30] VITALS: BP 129/72; PULSE 91; RESP 16; TEMP 36.9; O2SAT 94
[2020-06-30 04:00] VITALS: BP 136/82; PULSE 90; RESP 17; TEMP 36.6; O2SAT 96
[2020-06-30 06:46] LABS: Basophils % 0.5 %; Eosinophils # 0.1 10^3/uL (0.0-0.8); Eosinophils % 1.3 %; Hematocrit 38.9 % (37.0-47.0); Hemoglobin 12.8 g/dL (11.5-15.3); Lymphocytes # 2.1 10^3/uL (0.8-4.8); Lymphocytes % 27.1 %; Mean Corpuscular HGB Conc 32.9 g/dL (30.0-36.0); Mean Corpuscular Hemoglobin 30.7 pg (28.0-34.0); Mean Corpuscular Volume 93.3 fL (81-99); Mean Platelet Volume 11.1 fL (7.4-10.4); Monocytes # 0.6 10^3/uL (0.2-0.9); Monocytes % 7.6 %; Neutrophils # 4.85 10^3/uL (1.8-7.7); Neutrophils % 63.2 %; Nucleated Red Blood Cells % 0 %; Platelet Count 210 10^3/cmm (130-400); Red Blood Count 4.17 10^6/uL (4.1-5.3); White Blood Count 7.7 10^3/uL (4.0-10.0)
[2020-06-30 06:57] LABS: INR 1.12 (0.8-1.2); Partial Thromboplastin Time 34.3 SECONDS (23.9-36.7)
[2020-06-30 07:04] LABS: Alanine Aminotransferase 332 U/L (0-33); Albumin Level 4.4 g/dL (3.5-5.2); Alkaline Phosphatase 230 IU/L (35-105); Anion Gap 15.3 (5-19); Aspartate Amino Transferase 84 U/L (0-32); Blood Urea Nitrogen 7 mg/dL (8-23); Calcium 9.9 mg/dL (8.5-10.5); Carbon Dioxide 26 mmol/L (22-29); Chloride 97 mmol/L (98-107); Globulin 3.6 g/dL (1.3-4.6); Glomerular Filtration Rate 161.2 mL/min (90-130); Glucose 95 mg/dL (65-115); Magnesium 1.9 mg/dL (1.7-2.3); Osmolality Calculated 278 mOsm/kg (285-295); Phosphorus 3.1 mg/dL (2.5-4.5); Potassium 3.3 mmol/L (3.5-5.1); Sodium 135 mmol/L (136-145); Total Bilirubin 0.3 mg/dL (0.15-1.2)
--- NOTE | 2020-06-30 07:06 | NUR.SHIFT ---
Patient was able to sleep part of the night. Patient stated that she is eager to go home . No adverse events.
[2020-06-30 07:50] VITALS: BP 156/84; PULSE 95; RESP 18; TEMP 37.8; O2SAT 96
[2020-06-30] MEDS: pantoprazole DR 40 mg Tablet PO ×2 (08:30→17:07)
--- NOTE | 2020-06-30 09:37 | PC.NURSE ---
DR TATI DUFFY IN ROOM TO ASSESS PT - MADE AWARE OF TEMP 100 - DRY COUGH AND PT COMPLAINING OF CHILLS - ORDERS REC'D
--- NOTE | 2020-06-30 09:59 | PM.PN ---
Subjective Subjective: Interval history: Patient reports that her abdominal pain is gone but she felt febrile this morning. She is her temperature was 100.0. Reports that she has alternating feeling of being hot and then diaphoretic. Denies shortness of breath or chest pain. Reports tolerating clear liquid diet well. Reports that she noted dry cough yesterday but denies being short of breath. Vitals/I&O/Wt Last Vital Signs Temp 100.0 F H 06/30/20 07:50 Pulse 95 06/30/20 07:50 Resp 18 06/30/20 07:50 BP 156/84 06/30/20 07:50 Pulse Ox 96 06/30/20 07:50 06/29/20 06/30/20 06/30/20 22:59 06:59 14:59 Intake Total 1615 / 3455 100 / 3555 Balance 1615 / 3455 100 / 3555 Physical Exam Narrative: EXAM NARRATIVE: Minimal right upper quadrant pain on palpation. Clear lungs and regular heart. No lower extremity edema. Data : 06/30/20 05:18 06/30/20 05:18 Micro: Microbiology 06/28/20 16:08 Blood Culture - Preliminary Blood NEGATIVE TO DATE 06/28/20 16:15 Blood Culture - Preliminary Blood NEGATIVE TO DATE A&P Assessment and plan (1) Acute hepatitis: This could be medication induced including secondary to anesthetic. Status: Acute (2) SIRS (systemic inflammatory response syndrome): Improved. Status: Acute Additional A&P Information PLAN: I will advance diet. Obtain blood cultures. Since patient overall does not feel good I will keep patient for 1 more day and monitor. Will proceed with CTA of chest as for now we still do not have explanation of patient's significant elevated liver enzymes. Attestations Medical Necessity Statement*: Patient with acute hepatitis and now with cough and febrile episodes requires close inpatient monitoring and treatment. Coding Level of Care Code Acute Clay Dry Press Mixer Operator for [facility] Diagnoses Acute hepatitis B17.9 SIRS (systemic inflammatory response syndrome) R65.10
--- NOTE | 2020-06-30 10:05 | CTR_ITS ---
PROCEDURE INFORMATION: Exam: CT Angiography Chest With Contrast Exam date and time: 06/30/2020 10:08 AM Age: 64 years old Clinical indication: Cough; Additional info: Cough and increased liver enzymes after recent surgery TECHNIQUE: Imaging protocol: Computed tomographic angiography of the chest with contrast. 3D rendering (Not supervised by radiologist): MIP and/or 3D reconstructed images were created by the technologist. Radiation optimization: All CT scans at this facility use at least one of these dose optimization techniques: automated exposure control; mA and/or kV adjustment per patient size (includes targeted exams where dose is matched to clinical indication); or iterative reconstruction. Contrast material: OMNI 350; Contrast volume: 52 ml; Contrast route: INTRAVENOUS (IV); COMPARISON: CT chest w con* [id number] 12/09/2018 11:00 AM RADIATION DOSE METRICS: Total DLP (mGy-cm): 450.41 FINDINGS: Pulmonary arteries: Normal. No pulmonary emboli. Aorta: There is atherosclerotic calcification of the aorta but there is no aneurysm or evidence of aortic dissection. Lungs: Unremarkable. No consolidation. No masses. Pleural spaces: Unremarkable. No pneumothorax. No pleural effusion. Heart: There is left ventricular myocardial hypertrophy. Moderate atherosclerotic calcifications are present in the coronary arteries. Lymph nodes: Unremarkable. No enlarged lymph nodes. Bones/joints: Moderate degenerative changes are present in the spine with osteophyte formation. Soft tissues: Unremarkable. CT/CT angio chest PE protcl [id number] IMPRESSION: 1. No evidence of pulmonary embolus or aortic aneurysm/dissection. 2. Coronary artery calcification. 3. Left ventricular hypertrophy. Radiation Dose CTDIVOL = (mGy): DLP = 450.41 (mGy-cm)
[2020-06-30] MEDS: iohexol 350 mg/mL 100 mL Btl IV (10:30)
[2020-06-30 14:01] VITALS: BP 150/83; PULSE 75; RESP 18; TEMP 37.1; O2SAT 96
[2020-06-30] MEDS: enoxaparin 40 mg/0.4 mL Syringe SUBCUT (14:32)
[2020-06-30 16:00] VITALS: BP 124/77; PULSE 94; RESP 18; TEMP 37.1; O2SAT 95
[2020-06-30 19:44] VITALS: BP 174/95; PULSE 89; RESP 17; TEMP 36.6; O2SAT 95
[2020-07-01] VITALS: BP 128/68; PULSE 84; RESP 16; TEMP 36.8; O2SAT 96
[2020-07-01 04:00] VITALS: BP 137/72; PULSE 88; RESP 17; TEMP 36.8; O2SAT 95
[2020-07-01 05:36] LABS: Basophils % 0.5 %; Eosinophils # 0.1 10^3/uL (0.0-0.8); Eosinophils % 1.5 %; Hematocrit 36.1 % (37.0-47.0); Hemoglobin 12.2 g/dL (11.5-15.3); Lymphocytes # 2.3 10^3/uL (0.8-4.8); Lymphocytes % 28.6 %; Mean Corpuscular HGB Conc 33.8 g/dL (30.0-36.0); Mean Corpuscular Hemoglobin 30.7 pg (28.0-34.0); Mean Corpuscular Volume 90.7 fL (81-99); Mean Platelet Volume 10.1 fL (7.4-10.4); Monocytes # 0.6 10^3/uL (0.2-0.9); Monocytes % 7.9 %; Neutrophils # 4.95 10^3/uL (1.8-7.7); Neutrophils % 61.4 %; Nucleated Red Blood Cells % 0 %; Platelet Count 303 10^3/cmm (130-400); Red Blood Count 3.98 10^6/uL (4.1-5.3); White Blood Count 8.1 10^3/uL (4.0-10.0)
[2020-07-01 06:17] LABS: INR 0.88 (0.8-1.2)
[2020-07-01 07:56] LABS: Alanine Aminotransferase 199 U/L (0-33); Albumin Level 4.2 g/dL (3.5-5.2); Alkaline Phosphatase 198 IU/L (35-105); Anion Gap 16.8 (5-19); Aspartate Amino Transferase 38 U/L (0-32); Blood Urea Nitrogen 17 mg/dL (8-23); Calcium 10.4 mg/dL (8.5-10.5); Carbon Dioxide 24 mmol/L (22-29); Chloride 105 mmol/L (98-107); Globulin 3.5 g/dL (1.3-4.6); Glucose 104 mg/dL (65-115); Magnesium 1.8 mg/dL (1.7-2.3); Osmolality Calculated 296 mOsm/kg (285-295); Phosphorus 4.3 mg/dL (2.5-4.5); Potassium 3.8 mmol/L (3.5-5.1); Sodium 142 mmol/L (136-145); Total Bilirubin 0.2 mg/dL (0.15-1.2); Total Protein 7.7 g/dL (6.6-8.7)
[2020-07-01] MEDS: pantoprazole DR 40 mg Tablet PO (08:33)
[2020-07-01 08:50] VITALS: BP 147/85; PULSE 65; RESP 18; TEMP 37; O2SAT 98
--- NOTE | 2020-07-01 09:26 | P.PN_ITS ---
Subjective Subjective: Interval history: Patient overall feels much better and tolerating p.o. intake. Obvious trending down in liver function tests. Vitals/I&O/Wt Last Vital Signs Temp 98.6 F 07/01/20 08:50 Pulse 65 07/01/20 08:50 Resp 18 07/01/20 08:50 BP 147/85 07/01/20 08:50 Pulse Ox 98 07/01/20 08:50 06/30/20 07/01/20 07/01/20 22:59 06:59 14:59 Intake Total 240 / 480 Balance 240 / 480 Physical Exam Narrative: EXAM NARRATIVE: Patient is conscious alert oriented X3 BMI 22.1 Head and neck examination PERRLA no masses no cervical lymphadenopathy no jaundice Abdomen much less tender in comparison to yesterday physical examination nondistended soft no organomegaly guarding or rigidity/no signs of peritonitis Incisions are clean dry and intact Extremities no cyanosis no clubbing no edema Data : 07/01/20 04:43 07/01/20 04:48 Micro: Microbiology 06/30/20 10:43 Blood Culture - Preliminary Blood SPECIMEN COLLECTED 06/30/20 10:42 Blood Culture - Preliminary Blood SPECIMEN COLLECTED A&P Assessment and plan (1) Right upper quadrant pain: Patient feels much better today From surgical standpoint of view patient can follow-up with me as an outpatient Avoid hepatotoxic medications and appropriate hydration Low-fat diet Education with regard acetaminophen dosage not to exceed 1-2 g/day I did encourage the patient to follow-up with her primary care provider as well as pain clinic provider to review her medications to prevent future potential episodes of flareups of hepatitis. Likely the patient would benefit from outpatient Hepatology consultation with potential liver biopsy Proceed Dr. Kessler's input. Assurance and education All questions have been answered and all concerns have been addressed to patient's satisfaction. Status: Acute Attestations Medical Necessity Statement*: Continue hospitalization for medical care Time Spent in Patient Care: (>than 50% of time spent in counselling and/or direct pt care on unit) . Coding Level of Care Code Acute Oncology Coordinator for Chg Fwd Diagnoses Right upper quadrant pain R10.11
[2020-07-01 11:29] VITALS: BP 148/78; PULSE 90; RESP 18; TEMP 37.1; O2SAT 95
--- NOTE | 2020-07-01 13:03 | PM.DCS ---
Discharge Providers Date of Admission: 06/28/20 10:17 Date of Discharge: July 01, 2020 Attending Provider at Admission: Emeterio Guerrero MD Attending Provider at Discharge: Luther Mccain Primary Care Provider: Lisa Olea Diagnoses at Discharge Discharge Diagnosis (1) Right upper quadrant pain: Status: Acute Reason for Visit Reason for Visit: abd pain/recent gall bladder removal Hospital Course Hospital Course Pleasant 64-year-old lady 3 days after cholecystectomy subsequently with acute hepatitis of unclear cause, but thought perhaps medication induced, she is on a number of pain medications which also contain Tylenol, and also NSAIDs or even possibility of anesthetic medications was considered. AST highest 1732, ALT 1183. Alk phos 283. T bili has remained normal. Coagulation parameters remained normal, with INR highest at 1.12. Acute infectious hepatitis panel was negative. Recent COVID-19 PCR 06/20 was negative. She was additionally assessed by CT abdomen pelvis without finding of acute abnormalities. Incidentally noted prominence of stool consistent with constipation. Calcified atherosclerotic aorta. Status post cholecystectomy and appendectomy. Small mount of nonspecific free fluid in the pelvis. Additional assessment also included MRCP with noted recent postoperative changes with a small amount of fluid in the gallbladder fossa along the undersurface of the right hepatic lobe consistent with expected postoperative changes. Mild prominence in the common bile duct without evidence of choledocholithiasis. Normal tapering of common bile duct distally. Mild intrahepatic biliary ductal dilation unchanged since October 2019. Incidentally noted hepatic and renal cysts. No evidence of pancreatic mass or lesion. Mild prominence of pancreatic duct. Hepatomegaly. CT angiogram of the chest was obtained as well, showing no PE or aortic aneurysm/dissection. Coronary calcification. Left ventricular hypertrophy. highest temp 100F on 06/30 AM. >24h afebrile without symptoms of acute infection. Blood cultures preliminary negative, 06/28 and repeat 06/30. Please follow-up final results. Her liver parameters have been continuously improving with supportive treatment, she has no abdominal discomfort, has been tolerating oral intake, and request to return home. Discussed with her again that we do not have a good identified cause of the hepatitis. We again consider possibility of medications, possibly him anesthesia, transient hypoperfusion. Or other not so far identified causes. Due to this she is agreeable to follow-up in outpatient side with hepatology. We did also discuss possibility of perihepatic vascular VTE, although this is rather less likely given rapid improvement, but she is agreeable to follow-up with outpatient duplex ultrasonography. Counseled her to maintain a low fat diet. As per discussion with surgery she is cleared for discharge with follow-up in outpatient clinic. She is asked to limit pain medications containing acetaminophen and avoid NSAIDs. She understands to return to hospital in case there is any concern. Physical Exam Const: COMMON NORMALS: no acute distress, patient oriented x3 and alert GENERAL APPEARANCE: cooperative and comfortable ORIENTATION/CONSCIOUSNESS: Yes awake OTHER: Pleasant, conversant. Denies any discomfort. Requests to go home. HENMT: COMMON NORMALS: oropharynx normal Neck/C-Spine: COMMON NORMALS: no JVD Resp: COMMON NORMALS: normal respiratory effort and clear to auscultation bilaterally AUSCULTATION: clear to auscultation bilaterally Cardio: COMMON NORMALS: no JVD, regular rhythm, S1 normal heart sound present, S2 normal heart sound present and No murmurs present (Cardio) RHYTHM: regular rhythm HEART SOUNDS: S1 normal heart sound present and S2 normal heart sound present GI: COMMON NORMALS: Normal to inspection, nondistended, normoactive bowel sounds present, Soft to palpation and non-tender PALPATION: Yes Soft to palpation OTHER: Healing trocar wounds. Extremity: COMMON NORMALS: no joint enlargement and no pedal edema Neuro: COMMON NORMALS: patient oriented x3 and moves all extremities SENSORIUM/ORIENTATION: Yes alert Skin: COMMON NORMALS: no rashes or lesions noted GENERAL SKIN EXAM: no rashes or lesions noted Discharge Data Data Completed and Pending: Completed Studies During Hospitalization Category Date Time Status CT abdomen pelvis w con* [id number] Urge nt Cat Scan 06/28/20 04:[address] angio chest PE protcl [id number] Rout ine Cat Scan 06/30/20 10:05 Completed MR MRCP [id number] Urg ent MRI 06/28/20 07:26 Completed Pending at discharge Category Date Time Status Blood Culture Rou asad Lab 06/28/20 16:15 Results Blood Culture Sta t Lab 06/30/20 10:43 Results Labs from last 24 hours 07/01/20 07/01/20 07/01/20 04:48 04:43 04:43 WBC 8.1 RBC 3.98 L Hgb 12.2 Hct 36.1 L MCV 90.7 MCH 30.7 MCHC 33.8 RDW 12.0 L Plt Count 303 MPV 10.1 Neut % (Auto) 61.4 Lymph % (Auto) 28.6 [place] % (Auto) 7.9 Eos % (Auto) 1.5 Baso % (Auto) 0.5 Neut # (Auto) 4.95 Lymph # (Auto) 2.3 [place] # (Auto) 0.6 Eos # (Auto) 0.1 Baso # (Auto) 0.0 Nucleated RBC % (a uto) 0 Nucleated RBCs # 0.0 PT 12.10 INR 0.88 APTT 31.0 Sodium 142 Potassium 3.8 Chloride 105 Carbon Dioxide 24 Anion Gap 16.8 BUN 17 Creatinine 0.6 GFR Calculation 101.0 Glucose 104 Calculated Osmolal ity 296 H Calcium 10.4 Phosphorus 4.3 Magnesium 1.8 Total Bilirubin 0.2 AST 38 H ALT 199 H Alkaline Phosphata se 198 H Total Protein 7.7 Albumin 4.2 Globulin 3.5 Vitals: Last Vital Signs Temp 98.7 F 07/01/20 11:29 Pulse 90 07/01/20 11:29 Resp 18 07/01/20 11:29 BP 148/78 07/01/20 11:29 Pulse Ox 95 07/01/20 11:29 Discharge Plan Discharge Patient Disposition: Home Condition: Stable Prescriptions: Continued trazodone 100 mg tablet 100 mg PO DAILY@ RF: 0 amitriptyline 75 mg tablet 75 mg PO DAILY@22 PRN (Reason: Insomnia) RF: 0 lovastatin 20 mg tablet 20 mg PO DAILY@ RF: 0 aspirin [Adult Aspirin Regimen] 81 mg tablet,delayed release (DR/EC) 81 mg PO DAILY@07 RF: 0 lisinopril 20 mg tablet 20 mg PO DAILY@07 RF: 0 cytctsysgf-jpcnmlu-fupxcjcb [Fiorinal] 50-325-40 mg capsule 1 cap PO DAILY PRN (Reason: pain) Qty: 30 RF: 2 omega 5-mse-oea-fish oil [Fish Oil] 1,200 (144-216) mg Capsule 1 cap PO DAILY@07 RF: 0 hydrocodone-acetaminophen [[place]] 5-325 mg tablet 1 tab PO Q6H PRN (Reason: pain) Qty: 20 RF: 0 methocarbamol 500 mg tablet 500 mg PO TID@,19 PRN (Reason: spasms) RF: 0 Neurontin 300 mg capsule 300 mg PO TID@ RF: 0 Discontinued ibuprofen 800 mg tablet 800 mg PO BID PRN (Reason: pain) 30 Days Qty: 60 RF: 2 Hold Instructions: Resume on 06/29/20. acetaminophen-codeine 300-30 mg tablet 1 tab PO BID@ PRN (Reason: pain) RF: 0 Discharge Orders: Discharge Order (Routine); Ordered 07/01/20 Ordered By: Luther Mccain Other Ambulatory Orders: US abdomen limited [id number] (Routine) Timeframe: 3 Days Facility: [facility] - Location: Radiology [facility] Ordered By: Luther Mccain Referrals: Hepatology, specialist [Other] - 1 week Jose Jackson MD [Physician] - 1 week Lisa Olea FNP [Primary Care Provider] - 4-7 days (PLEASE CALL FOR APPOINTMENT ) Discharge Diet: Low Fat Discharge Activity: Increase activity as tolerated and Limit activity as instructed Patient Instructions: Hepatitis B, Low Fat Diet (GEN), Laparoscopic Cholecystectomy (DC) Activity Restrictions/Additional Instructions: Please avoid any NSAIDs like Aleve Profen, Aleve, etc. as these may affect her liver. Please avoid taking more than 2000 mg of acetaminophen per day. Please be aware that both [place] and acetaminophen-codeine contain acetaminophen. Please do not take both at the same time. Please calculate the total daily dose of acetaminophen and keep below 2000 mg. Please follow-up with a liver specialist (product demonstrator) for additional assessment due to unclear cause of improving acute hepatitis. Please discuss with your primary provider and liver specialist regarding results of additional ultrasound that is requested. Have your primary care provider follow-up liver tests at next appointment. Discharge Attestations Time Spent in Discharge Care*: greater than 30 min Quality Metrics Clinical Quality Measures During this hospital stay, did patient experience: None Coding Level of Care Code Acute Transport Medic for Chg Fwd Diagnoses Right upper quadrant pain R10.11
[2020-07-01 14:48] VITALS: BP 148/78; PULSE 90; RESP 18; TEMP 37.1; O2SAT 95
== END 2020-07-01 14:15 | disposition home or self-care (01) | DRG 442 ==
LOC: ER 10:21 → MEDSURG 10:35
PROVIDERS: Emergency Medicine; Admitting Provider Internal Medicine; Emergency Provider Emergency Medicine; PCP Nurse Practitioner Family; Visit Provider Internal Medicine
DX: K71.6 Toxic liver disease with hepatitis, not elsewhere classified (principal); R65.10 Systemic inflammatory response syndrome (SIRS) of non-infectious origin without acute organ dysfunction; T50.915A Adverse effect of multiple unspecified drugs, medicaments and biological substances, initial encounter; Z90.49 Acquired absence of other specified parts of digestive tract; F17.210 Nicotine dependence, cigarettes, uncomplicated; I10 Essential (primary) hypertension; Z79.891 Long term (current) use of opiate analgesic; M54.17 Radiculopathy, lumbosacral region; M43.16 Spondylolisthesis, lumbar region; K76.0 Fatty (change of) liver, not elsewhere classified; K59.00 Constipation, unspecified; I25.10 Atherosclerotic heart disease of native coronary artery without angina pectoris; R16.0 Hepatomegaly, not elsewhere classified; Z79.82 Long term (current) use of aspirin
CPT/HCPCS: 36415; 71275; 74177; 74181; 80053; 80061; 80074; 80307; 81001; 83605; 83690; 83735; 83880; 84100; 84145; 84443; 85025; 85610; 85730; 87040; 96361; 96372; 96374; 96375; 96376; 99285; 99291; J1170; J1650; J2270; J2405; J7030; Q9967

== ENCOUNTER → 2020-07-16 12:52 | Outpatient (BNVA) | payer MEDICAID, SELFPAY | PROVIDERS: PCP Nurse Practitioner Family; Visit Provider Nurse Practitioner | DX: G89.29 Other chronic pain (principal); M54.17 Radiculopathy, lumbosacral region; M43.16 Spondylolisthesis, lumbar region; G62.9 Polyneuropathy, unspecified; M54.9 Dorsalgia, unspecified; F17.210 Nicotine dependence, cigarettes, uncomplicated; Z79.891 Long term (current) use of opiate analgesic; Z71.6 Tobacco abuse counseling | CPT/HCPCS: 99214 ==

== ENCOUNTER 2020-08-08 09:56 | Outpatient (CLI) | payer MEDICAID, SELFPAY ==
--- NOTE | 2020-08-08 10:15 | USCV_ITS ---
Kassy Thomas Age: 64 Gender: F : 1955 Exam Date: 08/08/2020 10:30 Ordering Phys: Luther Mccain MD Technologist: Manjula Bowen Exam Location: [facility] [place] Indication: Venous duplex of perihepatic vessels Findings Normal size and phasicity and doppler of the hepatic veins, arteries and portal vein. No thrombus or occlusions. No reversal of flow. Conclusions Negative doppler of hepatic veins and arteries and portal vein. Dr. Mariama Little DO (Electronically Signed) Final Date: 08 August 2020 13:05 S
== END 2020-08-08 09:57 | disposition home or self-care (01) ==
LOC: US 09:58
PROVIDERS: PCP Nurse Practitioner Family; Visit Provider Internal Medicine
DX: B17.9 Acute viral hepatitis, unspecified (principal)
CPT/HCPCS: 93976; 93998

== ENCOUNTER → 2020-08-15 10:22 | Outpatient (BNVA) | payer MEDICAID, SELFPAY | PROVIDERS: PCP Nurse Practitioner Family; Visit Provider Nurse Practitioner | DX: M54.17 Radiculopathy, lumbosacral region (principal); M43.16 Spondylolisthesis, lumbar region; G62.9 Polyneuropathy, unspecified; F17.210 Nicotine dependence, cigarettes, uncomplicated; Z79.891 Long term (current) use of opiate analgesic | CPT/HCPCS: 99212 ==

== ENCOUNTER → 2020-10-22 08:58 | Outpatient (BNVA) | payer MEDICAID, SELFPAY | PROVIDERS: PCP Nurse Practitioner Family; Visit Provider Anesthesiology | DX: M54.17 Radiculopathy, lumbosacral region (principal); M43.16 Spondylolisthesis, lumbar region; M54.9 Dorsalgia, unspecified; F17.210 Nicotine dependence, cigarettes, uncomplicated; Z79.891 Long term (current) use of opiate analgesic | CPT/HCPCS: 99213 ==

== ENCOUNTER → 2020-12-20 08:49 | Outpatient (BNVA) | payer MEDICAID, SELFPAY | PROVIDERS: PCP Nurse Practitioner Family; Visit Provider Anesthesiology | DX: M54.17 Radiculopathy, lumbosacral region (principal); M43.16 Spondylolisthesis, lumbar region; G62.9 Polyneuropathy, unspecified; G43.911 Migraine, unspecified, intractable, with status migrainosus; F17.210 Nicotine dependence, cigarettes, uncomplicated; Z79.891 Long term (current) use of opiate analgesic | CPT/HCPCS: 99214 ==

== ENCOUNTER 2021-01-27 10:03 | Outpatient (CLI) | payer MEDICAID, SELFPAY ==
--- NOTE | 2021-01-27 10:08 | MM_ITS ---
WS: [id number] BILATERAL DIGITAL SCREENING MAMMOGRAPHY WITH CAD CLINICAL INFORMATION: SCREENING HISTORY: Screening mammogram. No current complaints. COMPARISON: July 21, 2019 TECHNIQUE: Bilateral CC and MLO views. FINDINGS: Scattered fibroglandular densities bilaterally. Stable nodular breast tissue upper outer right breast . No suspicious focal mass, asymmetry, calcifications, or architectural distortion. No evidence of ma lignancy. MM/[place] [id number] IMPRESSION: BI-RADS: 2-Benign FOLLOW UP: 1 Year Follow-up Recommend return to annual screening mammography.
== END 2021-01-27 10:04 | disposition home or self-care (01) ==
LOC: RADSHAW 10:07
PROVIDERS: PCP Nurse Practitioner Family; Visit Provider Nurse Practitioner Family
DX: Z12.31 Encounter for screening mammogram for malignant neoplasm of breast (principal)
CPT/HCPCS: 77067

== ENCOUNTER → 2021-02-18 10:47 | Outpatient (BNVA) | payer MEDICAID, SELFPAY | PROVIDERS: PCP Nurse Practitioner Family; Visit Provider Anesthesiology | DX: G89.29 Other chronic pain (principal); M54.17 Radiculopathy, lumbosacral region; M43.16 Spondylolisthesis, lumbar region; G62.9 Polyneuropathy, unspecified; R51.9 Headache, unspecified; F17.210 Nicotine dependence, cigarettes, uncomplicated; Z79.891 Long term (current) use of opiate analgesic; Z71.6 Tobacco abuse counseling | CPT/HCPCS: 99214 ==

== ENCOUNTER → 2021-04-17 10:38 | Outpatient (BNVA) | payer MEDICAID, SELFPAY | PROVIDERS: PCP Nurse Practitioner Family; Visit Provider Anesthesiology | DX: G89.29 Other chronic pain (principal); M54.17 Radiculopathy, lumbosacral region; M43.16 Spondylolisthesis, lumbar region; R51.9 Headache, unspecified; G62.9 Polyneuropathy, unspecified; F17.200 Nicotine dependence, unspecified, uncomplicated; Z79.891 Long term (current) use of opiate analgesic; Z71.6 Tobacco abuse counseling | CPT/HCPCS: 99214 ==

== ENCOUNTER → 2021-06-18 10:33 | Outpatient (BNVA) | payer MEDICAID, SELFPAY | PROVIDERS: PCP Nurse Practitioner Family; Visit Provider Anesthesiology | DX: G89.29 Other chronic pain (principal); M54.17 Radiculopathy, lumbosacral region; M43.16 Spondylolisthesis, lumbar region; G43.911 Migraine, unspecified, intractable, with status migrainosus; G62.9 Polyneuropathy, unspecified; F17.200 Nicotine dependence, unspecified, uncomplicated; Z79.891 Long term (current) use of opiate analgesic | CPT/HCPCS: 99214 ==

== ENCOUNTER 2021-08-11 10:02 | Outpatient (CLI) | payer MEDICAID, SELFPAY ==
--- NOTE | 2021-08-11 10:11 | CT_ITS ---
WS: [id number] LDCT LUNG CANCER SCREENING TECHNIQUE: Noncontrast CT of the chest with coronal and sagittal reformatted images. CLINICAL INFORMATION: NICOTINE DEPENDENCE COMPARISON: CTA chest June 30, 2020 CT chest December 09, 2018 DLP: 76.70 mGy.cm DIvol: Mean CTDIvol: 1.60 (mGy) All CT scans at [facility] use at least one of these dose optimization techniques: automat ed exposure control; mA and/or kV adjustment per patient size (includes targeted exams where dose is matched to clinical indication); or iterative reconstruction. FINDINGS: Lungs are well aerated. No acute pulmonary infiltrates. No suspicious pulmonary parenchymal normaliti es. Normal caliber thoracic aorta. Aortic calcification. Coronary calcification. No mediastinal or hilar lymphadenopathy. No axillary lymphadenopathy. Adrenal glands are normal. Cholecystectomy clips. Normal GE junction. CT/CT lung screening [id number] IMPRESSION: LUNG-RADS: 1-Negative FOLLOW UP: 12 Month: Continue annual screening with LDCT
== END 2021-08-11 10:03 | disposition home or self-care (01) ==
LOC: RAD 10:04
PROVIDERS: PCP Nurse Practitioner Family; Visit Provider Nurse Practitioner Family
DX: Z12.2 Encounter for screening for malignant neoplasm of respiratory organs (principal); F17.200 Nicotine dependence, unspecified, uncomplicated
CPT/HCPCS: 71271

== ENCOUNTER 2021-08-29 11:33 | Outpatient (CLI) | payer MEDICAID, SELFPAY ==
--- NOTE | 2021-08-29 11:47 | MR_ITS ---
WS: [id number] MRI LUMBAR SPINE NONCONTRAST TECHNIQUE: Sagittal T1, T2 and STIR imaging. Axial T1 and T2 imaging. CLINICAL INFORMATION: SPONDYLOSIS OF LUMBOSACRAL REGION WITHOUT MYELOPATHY OR RADI COMPARISON: MRI 12 FINDINGS: Mild lumbar curve. No acute compression. Slight anterolisthesis L4 on L5 appears slightly progressed. Incidental Tarlov cyst in the sacrum. L1-L2: Normal L2-L3: Mild annular bulging. Spinal canal and foramen are patent. Mild facet arthropathy. L3-L4:: Mild annular bulging with slight effacement of the ventral thecal sac. Tiny LEFT foraminal pr otrusion with mild LEFT foraminal narrowing. RIGHT foramen is patent. Mild facet arthropathy. L4-L5: Mild annular bulging with grade 1 anterolisthesis results in moderate central canal stenosis. Impingement on the traversing L5 nerve roots bilaterally in the subarticular recess. Mild RIGHT great er than LEFT foraminal narrowing. Moderate facet arthropathy ligamentum flavum hypertrophy. L5-S1: No significant disc bulging. Spinal canal and foramen are patent. Moderate facet arthropathy. Visualized pelvic bony structures: Normal. Paravertebral soft tissues: Normal. Small bilateral renal cysts. MR/MR lumbar spine wo con* [id number] IMPRESSION: 1. Mild lumbar curve. No acute compression. Grade 1 anterolisthesis L4 on L5 i s slightly progressed compared to 2018. 2. Moderate stenosis L4-L5 with impingement on the traversing L5 nerve roots b ilaterally. Central canal stenosis has progressed at this level. 3. Small LEFT foraminal protrusion L3-L4 with slight impingement on the exitin g LEFT L3 nerve root progressed compared to previous. 4. Mild bilateral L4-L5 foraminal narrowing RIGHT greater than LEFT. 5. Moderate facet arthropathy L4-L5 and L5-S1.
== END 2021-08-29 11:34 | disposition home or self-care (01) ==
LOC: RAD 11:35
PROVIDERS: PCP Nurse Practitioner Family; Visit Provider General Practice
DX: M47.897 Other spondylosis, lumbosacral region (principal); M48.061 Spinal stenosis, lumbar region without neurogenic claudication
CPT/HCPCS: 72148

== ENCOUNTER 2022-05-25 11:08 | Outpatient (CLI) | payer MEDICARE, MEDICAID, SELFPAY ==
--- NOTE | 2022-05-25 11:28 | MM_ITS ---
WS: [id number] SCREENING DIGITAL BREAST TOMOSYNTHESIS MAMMOGRAM WITH CAD HISTORY: SCREENING COMPARISON: 04/21/2018, 03/23/2018, 01/27/2021 and 07/21/2019 Bilateral CC and MLO with tomosynthesis and synthetic mammography submitted. Computer aided detection analyzed. Breast composition: The breasts are heterogeneously dense, which may obscure small masses. Partially obscured lobulated asymmetry in the anterior RIGHT breast near 8-9 o'clock has been previously evalua mk by additional imaging. This area of lobulation and increasing density appears more conspicuous as compared to prior studies. Lobulated asymmetry measures approximately 15 x 16 mm. MM/[place] [id number] IMPRESSION: BI-RADS: 0-Incomplete: Need additional imaging evaluation FOLLOW UP: Need Additional Imaging RIGHT breast: Spot compression views (CC and MLO). True ML. Ultrasound to follo w if abnormality persists.
== END 2022-05-25 11:09 | disposition home or self-care (01) ==
LOC: RAD 11:10
PROVIDERS: PCP Nurse Practitioner Family; Visit Provider Nurse Practitioner Family
DX: Z12.31 Encounter for screening mammogram for malignant neoplasm of breast (principal)
CPT/HCPCS: 77063; 77067

== ENCOUNTER 2022-06-29 12:33 | Outpatient (CLI) | payer MEDICARE, MEDICAID, SELFPAY ==
--- NOTE | 2022-06-29 13:04 | MM_ITS ---
WS: [id number] ADDITIONAL VIEWS RIGHT MAMMOGRAM WITH DIGITAL BREAST TOMOSYNTHESIS. RIGHT BREAST ULTRASOUND HISTORY: ABNORMAL MAMMO COMPARISON: 05/25/2022, 01/27/2021 RIGHT MAMMOGRAM: Spot compression views and true ML with digital breast tomosynthesis and SM. Dense asymmetry posterior and in the lateral RIGHT breast adjacent to the nipple persists. Slightly m ore prominent than on the prior studies. The area of asymmetry measures approximately 2.1 cm. Ultraso und will be performed. RIGHT BREAST ULTRASOUND 2-D and color Doppler imaging submitted. There is very dense fibroglandular tissue posterior to the RIGHT nipple and towards 9:00. No mass or shadowing. MM/[place] [id number] IMPRESSION: BI-RADS: 2-Benign FOLLOW UP: 1 Year Follow-up
== END 2022-06-29 12:34 | disposition home or self-care (01) ==
LOC: RAD 12:37
PROVIDERS: PCP Nurse Practitioner Family; Visit Provider Nurse Practitioner Family
DX: R92.8 Other abnormal and inconclusive findings on diagnostic imaging of breast (principal)
CPT/HCPCS: 76642; 77061; G0279

== ENCOUNTER 2022-12-02 16:34 | Outpatient (CLI) | payer MEDICARE, MEDICAID, SELFPAY ==
--- NOTE | 2022-12-02 16:48 | CT_ITS ---
WS: [email or web address] LDCT LUNG CANCER SCREENING TECHNIQUE: Noncontrast CT of the chest with coronal and sagittal reformatted images. CLINICAL INFORMATION: NICOTINE DEPENDENCE, CIGARETTES COMPARISON: August 11, 2021 DLP: 43.82 mGy.cm DIvol: Mean CTDIvol: 0.90 (mGy) All CT scans at [facility] use at least one of these dose optimization techniques: automat ed exposure control; mA and/or kV adjustment per patient size (includes targeted exams where dose is matched to clinical indication); or iterative reconstruction. FINDINGS: Lungs are well aerated. No acute pulmonary infiltrates. No focal pneumonia or pleural fluid. No suspi cious pulmonary parenchymal opacities. Mild spondylitic changes thoracic spine. Normal caliber thoracic aorta. Aortic calcification. Coronar y calcification. No mediastinal or hilar lymphadenopathy. No axillary lymphadenopathy. Adrenal glands are normal. Cholecystectomy clips. Normal GE junction CT/CT lung screening [id number] IMPRESSION: LUNG-RADS: 1-Negative FOLLOW UP: 12 Month: Continue annual screening with LDCT
== END 2022-12-02 16:35 | disposition home or self-care (01) ==
LOC: RAD 16:36
PROVIDERS: PCP Nurse Practitioner Family; Visit Provider Family Medicine
DX: Z12.2 Encounter for screening for malignant neoplasm of respiratory organs (principal); F17.210 Nicotine dependence, cigarettes, uncomplicated
CPT/HCPCS: 71271

== ENCOUNTER 2023-06-15 10:41 | Outpatient (CLI) | payer MEDICARE, MEDICAID, SELFPAY ==
--- NOTE | 2023-06-15 10:49 | MR_ITS ---
WS: [id number] MRI LUMBAR SPINE NONCONTRAST TECHNIQUE: Sagittal T1, T2 and STIR imaging. Axial T1 and T2 imaging. CLINICAL INFORMATION: LUMBAR DISC DZ W/RADICULOPATHY COMPARISON: MRI 08/29/2021 FINDINGS: Mild lumbar curve. Slight anterolisthesis L4 on L5. Incidental Tarlov cyst in the sacrum. N o high-grade central canal stenosis. Mild central canal stenosis in the cervical spine on immigration judge imaging at C3-C6. Small disc protrusions a t C3-C4. Slight indentation cervical cord at this level. This could be further evaluated with cervica l spine MRI. L1-L2: Mild facet arthropathy. Spinal canal and foramen are patent. L2-L3: Mild annular bulging. Mild facet arthropathy. Spinal canal and foramen are patent. L3-L4: Mild annular bulging. Slight narrowing of the LEFT subarticular recess. Mild LEFT and no signi ficant RIGHT foraminal narrowing. Spinal canal is patent. Moderate facet arthropathy. L4-L5: Grade 1 anterolisthesis. Mild central canal stenosis. Impingement traversing L5 nerve roots bi laterally. Advanced facet arthropathy. Mild bilateral foraminal narrowing. L5-S1: Mild disc bulging with slight effacement of the ventral thecal sac. Advanced LEFT facet arthro mely. Spinal canal and foramen are patent. Visualized pelvic bony structures: Normal. Paravertebral soft tissues: Normal. Small bilateral renal cysts. IMPRESSION: 1. Mild lumbar curve. Stable grade 1 anterolisthesis L4 on L5. 2. Mild to moderate central canal stenosis L4-5 due to disc bulging with advanced facet arthropathy and ligamentum flavum hypertrophy. Impingement traversing L5 nerve roots bilaterally. This is stable compared to previous. 3. Mild annular bulging L3-4 with slight narrowing of the LEFT greater than RIGHT subarticular reces s. 4. Small LEFT foraminal protrusion with mild LEFT L3-4 foraminal narrowing unchanged. 5. Mild bilateral L4-5 foraminal narrowing unchanged. 6. Incidental Tarlov cyst in the sacrum. 7. Advanced facet arthropathy L4-L5 and LEFT L5-S1. 8. Mild central canal stenosis in the cervical spine described above.
== END 2023-06-15 10:42 | disposition home or self-care (01) ==
LOC: RAD 10:42
PROVIDERS: PCP Nurse Practitioner Family; Visit Provider General Practice
DX: M51.16 Intervertebral disc disorders with radiculopathy, lumbar region (principal); M48.061 Spinal stenosis, lumbar region without neurogenic claudication; M47.817 Spondylosis without myelopathy or radiculopathy, lumbosacral region; M48.02 Spinal stenosis, cervical region
CPT/HCPCS: 72148

== ENCOUNTER 2023-07-16 11:42 | Outpatient (CLI) | payer MEDICARE, MEDICAID, SELFPAY ==
--- NOTE | 2023-07-16 11:49 | MM_ITS ---
WS: [email or web address] BILATERAL SCREENING DIGITAL TOMOSYNTHESIS MAMMOGRAM WITH CAD HISTORY: SCREENING COMPARISON: 06/29/2022, 05/25/2022 and 07/21/2019 and 01/27/2021 Bilateral CC and MLO views with tomosynthesis and synthetic mammography submitted. Computer aided det ection analyzed. Breast composition: There are scattered areas of fibroglandular density. No suspicious masses, microc alcifications or architectural distortion. Focal asymmetry RIGHT subareolar region is stable over mul tiple prior studies. IMPRESSION: MM/[place] [id number] BI-RADS: 2-Benign FOLLOW UP: 1 Year Follow-up
== END 2023-07-16 11:43 | disposition home or self-care (01) ==
LOC: RAD 11:44
PROVIDERS: PCP Nurse Practitioner Family; Visit Provider Family Medicine
DX: Z12.31 Encounter for screening mammogram for malignant neoplasm of breast (principal)
CPT/HCPCS: 77063; 77067

== ENCOUNTER 2023-12-09 18:41 | Emergency (ER) | payer MEDICARE, MEDICAID, SELFPAY ==
[2023-12-09 18:47] VITALS: BP 157/74; PULSE 75; RESP 16; TEMP 37; O2SAT 96
--- NOTE | 2023-12-09 19:00 | W.ED.HA ---
HPI - Headache General: Chief Complaint: Headache Stated Complaint: severe headache since epidural n/v Time Seen by Provider: 12/09/23 18:47 History of Present Illness: 68-year-old female comes in today for complaints of headache status post epidural procedure for chronic pain. Patient routinely gets steroid spinal injections for her chronic back pain. Patient had injection on Wednesday and has noted pain and discomfort since that time. Patient appears nontoxic. Patient appears in moderate to severe pain. Review of Systems General: Reports: 10 or more systems reviewed and unremarkable except in HPI and below Neuro: Reports: headache(s) PFSH ED PFSH: Medical History Acute hepatitis Current every day smoker Unmotivated to quit Gallbladder polyp Hypertension Long-term current use of opiate analgesic Lumbosacral radiculopathy due to intervertebral disc disorder Opioid contract exists Spondylolisthesis of lumbar region Surgical History History of carpal tunnel surgery of left wrist History of colonoscopy (~2019) History of dilatation and curettage x 1 History of laparoscopic cholecystectomy 06/25/20 - Dr. Sampson History of tonsillectomy History of tubal ligation Hx of append[place] Dr. Kay [place]18[place] [facility] [place] History Other CAD (coronary artery disease) Denies family history of Anesthesia complication Bleeding disorder Social History Smoking and tobacco/nicotine status: current every day tobacco/nicotine user cigarettes Packs smoked per day: 0.5 Alcohol intake: never Substance/Drug Use: never Physical Exam Const: COMMON NORMALS: alert HENMT: COMMON NORMALS: normocephalic HEAD & SCALP: normocephalic Neck/C-Spine: COMMON NORMALS: full ROM and no meningeal signs Resp: COMMON NORMALS: normal respiratory effort and clear to auscultation bilaterally AUSCULTATION: clear to auscultation bilaterally Cardio: COMMON NORMALS: regular rate and regular rhythm RATE: regular rate RHYTHM: regular rhythm GI: COMMON NORMALS: Soft to palpation and non-tender PALPATION: Yes Soft to palpation Back/Pelvis: COMMON NORMALS: thoracic and lumbar spine normal to inspection Extremity: COMMON NORMALS: full ROM Neuro: SENSORIUM/ORIENTATION: Yes alert MENINGEAL SIGNS: Yes no meningeal signs Skin: COMMON NORMALS: turgor normal GENERAL SKIN EXAM: turgor normal Course Vital Signs: Vital signs: Vital Signs Temperature 98.6 F 12/09/23 18:47 Pulse Rate 77 12/09/23 19:32 Respiratory Rate 16 12/09/23 19:32 Blood Pressure 151/75 12/09/23 19:32 Pulse Oximetry 97 12/09/23 19:32 Oxygen Delivery Me thod Room Air 12/09/23 18:47 MDM - Headache Medical Decision Making 68-year-old female comes in today with severe headache status post steroid injection for chronic back pain. Patient had a epidural steroid injection for chronic back pain on Wednesday. Patient reports since that time she has had a persistent headache. Patient appears nontoxic. Patient does have a history of chronic headaches. Respirations are even lungs are clear to auscultation. Examination of the injection site appears normal. No signs of redness or inflammation is noted. Vital signs are normal except for some mild elevation of blood pressure. No meningeal signs are noted. Differential diagnosis epidural leak, migraine headache, malingering. Patient full resolution of symptoms and was discharged home. The patient most likely had a migraine that might have been aggravated by her recent procedure. Patient reported understanding agreed to plan of care and need for follow-up or return to ER. No radiology studies performed this visit Discharge Plan Discharge Patient Disposition: Home Clinical Impression: Migraine Qualifiers: Migraine type: unspecified Status migrainosus presence: without status migrainosus Intractability: intractable Qualified Code(s): G43.919 - Migraine, unspecified, intractable, without status migrainosus Condition: Stable Prescriptions: Continued kazemimcxp-wcoezhk-kusznmlp 50-325-40 mg capsule 1 cap PO DAILY PRN (Reason: pain) 30 Days Qty: 30 1RF No Action Neurontin 300 mg capsule 300 mg PO TID@,, Qty: 90 1RF methocarbamol 500 mg tablet 500 mg PO TID@,, PRN (Reason: spasms) Qty: 90 1RF oxycodone 5 mg tablet 5 mg PO BID PRN (Reason: pain) 30 Days Qty: 60 0RF Rx Instructions: Fill on or after 06/26/21 oxycodone 5 mg tablet 5 mg PO BID PRN (Reason: pain) 30 Days Qty: 60 0RF Rx Instructions: Fill on or after 07/25/21 trazodone 100 mg tablet 100 mg PO DAILY@22 amitriptyline 75 mg tablet 75 mg PO DAILY@22 PRN (Reason: Insomnia) aspirin [Adult Aspirin Regimen] 81 mg tablet,delayed release (DR/EC) 81 mg PO DAILY@07 lovastatin 20 mg tablet 40 mg PO DAILY@22 omega 0-gfg-eel-fish oil [Fish Oil] 1,200 (144-216) mg Capsule 1 cap PO DAILY@07 Discharge Orders: Discharge ED (Routine); Ordered 12/09/23 Ordered By: Neel Delgadillo Referrals: Lisa Olea FNP [Primary Care Provider] - Discharge Diet: Usual diet Discharge Activity: Increase activity as tolerated Patient Instructions: Headache Activity Restrictions/Additional Instructions: Follow-up with specialists as needed. Return to ED for worsening symptoms. Coding Level of Care Code ED Assistant Education Director for Jason Rivera
[2023-12-09] MEDS: sodium chloride 0.9% 1,000 ML 999 ML IV (19:29)
[2023-12-09] MEDS: ketorolac 30 mg/mL INJ 15 MG IVP (19:29)
[2023-12-09] MEDS: diphenhydrAMINE 50 mg/mL SDV 1mL IVP (19:29)
[2023-12-09] MEDS: metoclopramide 5 mg/mL SDV 2 mL 10 MG IVP (19:29)
[2023-12-09] MEDS: HYDROmorphone 1 mg/mL INJ 1 mL IVP (19:30)
[2023-12-09] MEDS: dexamethasone 10 mg/mL INJ IVP (19:30)
[2023-12-09 19:32] VITALS: BP 151/75; PULSE 77; RESP 16; O2SAT 97
== END 2023-12-09 20:41 | disposition home or self-care (01) ==
PROVIDERS: Emergency Provider Nurse Practitioner Family; PCP Nurse Practitioner Family
DX: G43.919 Migraine, unspecified, intractable, without status migrainosus (principal); Z79.82 Long term (current) use of aspirin; F17.210 Nicotine dependence, cigarettes, uncomplicated; I10 Essential (primary) hypertension
CPT/HCPCS: 96361; 96374; 96375; 99284; J1100; J1170; J1200; J1885; J2765; J7030

== ENCOUNTER 2023-12-11 17:30 | Emergency (ER) | payer MEDICARE, MEDICAID, SELFPAY ==
[2023-12-11 17:55] VITALS: BP 164/84; PULSE 68; RESP 14; TEMP 36.7; O2SAT 97
--- NOTE | 2023-12-11 19:40 | CTR_ITS ---
PROCEDURE INFORMATION: Exam: CT Head Without Contrast Exam date and time: 12/11/2023 8:02 PM Age: 68 years old Clinical indication: Pain; Headache; Patient HX: Persistent frontal SANCHEZ x 2 days. ; Additional info: Worsening headaches TECHNIQUE: Imaging protocol: Computed tomography of the head without contrast. Radiation optimization: All CT scans at this facility use at least one of these dose optimization techniques: automated exposure control; mA and/or kV adjustment per patient size (includes targeted exams where dose is matched to clinical indication); or iterative reconstruction. COMPARISON: CT head wo con* [id number] 11/29/2017 8:50 PM RADIATION DOSE METRICS: Total DLP (mGy-cm): 1025.98 FINDINGS: Brain: No hemorrhage. No mass effect. Mild diffuse heterogeneity of the white matter attenuation, consistent with chronic white matter ischemic changes. Cerebral ventricles: No ventriculomegaly. Paranasal sinuses: Visualized sinuses are unremarkable. No fluid levels. Mastoid air cells: Visualized mastoid air cells are well aerated. Bones: Unremarkable. No acute fracture. Soft tissues: Unremarkable. CT/CT head wo con* [id number] IMPRESSION: No acute intracranial abnormality.
[2023-12-11 19:45] VITALS: BP 174/76; O2SAT 100
--- NOTE | 2023-12-11 19:45 | W.ED.HA ---
HPI - Headache General: Chief Complaint: Headache Stated Complaint: headache Time Seen by Provider: 12/11/23 19:27 History of Present Illness: 68-year-old female with a history of headaches who presents emergency room with a headache. She says these that she been having since she had a spinal injection of steroid have been much worse than normal. Like migraines and her previous headaches. She has worse photophobia and phonophobia. She was seen here in the emergency room few days ago and improved and went home. However this was resumed and she presents with a headache again. No focal motor deficits. No altered mental status. No fevers. Review of Systems Narrative: Constitutional symptoms: Negative except as documented in HPI. Skin symptoms: Negative except as documented in HPI. Eye symptoms: Negative except as documented in HPI. ENMT symptoms: Negative except as documented in HPI. Respiratory symptoms: Negative except as documented in HPI. Cardiovascular symptoms: Negative except as documented in HPI. Gastrointestinal symptoms: Negative except as documented in HPI. Genitourinary symptoms: Negative except as documented in HPI. Musculoskeletal symptoms: Negative except as documented in HPI. Neurologic symptoms: Negative except as documented in HPI. Psychiatric symptoms: Negative except as documented in HPI. Endocrine symptoms: Negative except as documented in HPI. PFSH ED PFSH: Medical History Acute hepatitis Current every day smoker Unmotivated to quit Gallbladder polyp Hypertension Long-term current use of opiate analgesic Lumbosacral radiculopathy due to intervertebral disc disorder Opioid contract exists Spondylolisthesis of lumbar region Surgical History History of carpal tunnel surgery of left wrist History of colonoscopy (~2019) History of dilatation and curettage x 1 History of laparoscopic cholecystectomy 06/25/20 - Dr. Sampson History of tonsillectomy History of tubal ligation Hx of appendectomy Dr. Kay 10/18/19 [facility] [place] Family History Other CAD (coronary artery disease) Denies family history of Anesthesia complication Bleeding disorder Social History Smoking and tobacco/nicotine status: current every day tobacco/nicotine user cigarettes Packs smoked per day: 0.5 Alcohol intake: never Substance/Drug Use: never Physical Exam Narrative: EXAM NARRATIVE: General: Alert, patient has photophobia. Skin: Warm, dry. Head: Normocephalic, atraumatic. Neck: Supple, trachea midline. Eye: Extraocular movements are intact. Ears, nose, mouth and throat: mucosa moist. Cardiovascular: Regular, Normal peripheral perfusion. Respiratory: Lungs are clear to auscultation, respirations are non-labored, breath sounds are equal, Symmetrical chest wall expansion. Gastrointestinal: Soft, Nontender, Non distended Musculoskeletal: Normal ROM, no deformity. Neurological: Alert and oriented, No focal neurological deficit observed. Psychiatric: Cooperative, appropriate mood & affect. Course Vital Signs: Vital signs: Vital Signs Temperature 98.1 F 12/11/23 17:55 Pulse Rate 68 12/11/23 17:55 Respiratory Rate 14 12/11/23 17:55 Blood Pressure 174/76 12/11/23 19:45 Pulse Oximetry 100 12/11/23 19:45 Oxygen Delivery Me thod Room Air 12/11/23 17:55 MDM - Headache Medical Decision Making CT head: No acute intracranial process. no intracranial hemorrhage, no evidence of infarct. no evidence of acute fracture.This was reviewed and interpreted by myself the ER physician. Lab Review: Laboratory results were reviewed and interpreted by myself the emergency room physician. Lab work is unremarkable. I reviewed the patient's medical record. Assessment and plan: Migraine headache -IV Toradol, IV Decadron, IV Reglan, IV Benadryl and IV Zofran in the emergency room - Discharged home - Discussed plan with patient. Answered any questions. - Evaluation and treatment of this problem were appropriate in the emergency setting. Lab Data 12/11/23 19:41 12/11/23 19:[address] 12/11/23 19:40 IMPRESSION: No acute intracranial abnormality. Laboratory Results WBC 9.28 10^3/uL (3.29-11.43) 12/11/23 19:41 RBC 3.92 10^6/uL (3.85-5.65) 12/11/23 19:41 Hgb 12.10 g/dL (11.27-16.99) 12/11/23 19:41 Hct 37.0 % (36-47) 12/11/23 19:41 MCV 94.4 fl (85-98) 12/11/23 19:41 MCH 30.9 pg (27-33) 12/11/23 19:41 MCHC 32.7 g/dL (30-55) 12/11/23 19:41 RDW 13.4 % (12.1-15.1) 12/11/23 19:41 Plt Count 403 10^3/cmm (157-399) H 12/11/23 19:41 MPV 8.7 fL (7.4-10.4) 12/11/23 19:41 Neut % (Auto) 55.2 % 12/11/23 19:41 Lymph % (Auto) 34.8 % 12/11/23 19:41 Appling % (Auto) 6.5 % 12/11/23 19:41 Eos % (Auto) 2.4 % 12/11/23 19:41 Baso % (Auto) 0.9 % 12/11/23 19:41 Neut # (Auto) 5.13 10^3/uL (1.8-7.7) 12/11/23 19:41 Lymph # (Auto) 3.2 10^3/uL (0.8-4.8) 12/11/23 19:41 App[place] # (Auto) 0.6 10^3/uL (0.2-0.9) 12/11/23 19:41 Eos # (Auto) 0.2 10^3/uL (0.0-0.8) 12/11/23 19:41 Baso # (Auto) 0.1 10^3/uL (0.0-0.1) 12/11/23 19:41 Nucleated RBC % (auto) 0 % 12/11/23 19:41 Nucleated RBCs # 0.0 /100WBC 12/11/23 19:41 Sodium 134 mmol/L (136-145) L 12/11/23 19:41 Potassium 4.3 mmol/L (3.5-5.1) 12/11/23 19:41 Chloride 97 mmol/L (98-107) L 12/11/23 19:41 Carbon Dioxide 24 mmol/L (22-29) 12/11/23 19:41 Anion Gap 17.3 (5-19) 12/11/23 19:41 BUN 15 mg/dL (8-23) 12/11/23 19:41 Creatinine 0.8 mg/dL (0.5-0.9) 12/11/23 19:41 GFR Calculation 71.5 mL/min (90-130) L 12/11/23 19:41 Glucose 91 mg/dL (65-115) 12/11/23 19:41 Calculated Osmolality 278 mOsm/kg (285-295) L 12/11/23 19:41 Calcium 9.6 mg/dL (8.5-10.5) 12/11/23 19:41 All radiology interpretation(s) finalized by discharge Discharge Plan Discharge Patient Disposition: Home Clinical Impression: Headache Condition: Stable Prescriptions: No Action Neurontin 300 mg capsule 300 mg PO TID@ Qty: 90 1RF methocarbamol 500 mg tablet 500 mg PO TID@ PRN (Reason: spasms) Qty: 90 1RF oxycodone 5 mg tablet 5 mg PO BID PRN (Reason: pain) 30 Days Qty: 60 0RF Rx Instructions: Fill on or after 06/26/21 oxycodone 5 mg tablet 5 mg PO BID PRN (Reason: pain) 30 Days Qty: 60 0RF Rx Instructions: Fill on or after 07/25/21 trazodone 100 mg tablet 100 mg PO DAILY@ amitriptyline 75 mg tablet 75 mg PO DAILY@22 PRN (Reason: Insomnia) aspirin [Adult Aspirin Regimen] 81 mg tablet,delayed release (DR/EC) 81 mg PO DAILY@ lovastatin 20 mg tablet 40 mg PO DAILY@ omega 4-xzu-dhi-fish oil [Fish Oil] 1,200 (144-216) mg Capsule 1 cap PO DAILY@ uwcvanoeuu-dbtnyou-fxielpib 50-325-40 mg capsule 1 cap PO DAILY PRN (Reason: pain) 30 Days Qty: 30 1RF Discharge Orders: Discharge ED (Routine); Ordered 12/11/23 Ordered By: Vero France Referrals: Lisa Olea FNP [Primary Care Provider] - 1-3 days Discharge Diet: Usual diet Discharge Activity: Resume usual activity Patient Instructions: Acute Headache (ED) Activity Restrictions/Additional Instructions: Thank you for choosing [facility] for your healthcare needs today. Please realize this is an emergency room and that we are providing you with a medical screening exam and this may not be complete and all inclusive of all the testing and or work up that you may need to determine your ailment or severity of your illness. You have been screened and evaluated and felt safe for discharge. Health conditions do change or evolve sometimes and as such it is important that you follow up with your Primary Doctor to be re checked, 3-5 days is a general good time frame for follow up. You are always welcome to return to the ED for re assessment if your symptoms are worsening or you have new concerns Coding Level of Care Code ED Labor Standards Director for Jason Rivera
[2023-12-11 19:46] LABS: Basophils # 0.1 10^3/uL (0.0-0.1); Basophils % 0.9 %; Eosinophils # 0.2 10^3/uL (0.0-0.8); Eosinophils % 2.4 %; Lymphocytes # 3.2 10^3/uL (0.8-4.8); Lymphocytes % 34.8 %; Mean Corpuscular HGB Conc 32.7 g/dL (30-55); Mean Corpuscular Hemoglobin 30.9 pg (27-33); Mean Corpuscular Volume 94.4 fl (85-98); Mean Platelet Volume 8.7 fL (7.4-10.4); Monocytes # 0.6 10^3/uL (0.2-0.9); Monocytes % 6.5 %; Neutrophils # 5.13 10^3/uL (1.8-7.7); Neutrophils % 55.2 %; Nucleated Red Blood Cells % 0 %; Platelet Count 403 10^3/cmm (157-399); Red Blood Count 3.92 10^6/uL (3.85-5.65); Red Cell Distribution Width 13.4 % (12.1-15.1); White Blood Count 9.28 10^3/uL (3.29-11.43)
[2023-12-11 20:10] LABS: Anion Gap 17.3 (5-19); Blood Urea Nitrogen 15 mg/dL (8-23); Calcium 9.6 mg/dL (8.5-10.5); Carbon Dioxide 24 mmol/L (22-29); Chloride 97 mmol/L (98-107); Creatinine Clr Calc Pharmacy 65.6924; Glomerular Filtration Rate 71.5 mL/min (90-130); Glucose 91 mg/dL (65-115); Osmolality Calculated 278 mOsm/kg (285-295); Potassium 4.3 mmol/L (3.5-5.1); Sodium 134 mmol/L (136-145)
[2023-12-11] MEDS: ondansetron 2 mg/ML SDV 2 mL 8 MG IVP (20:41)
[2023-12-11] MEDS: metoclopramide 5 mg/mL SDV 2 mL 10 MG IVP (20:42)
[2023-12-11] MEDS: dexamethasone 10 mg/mL INJ IVP (20:44)
[2023-12-11] MEDS: diphenhydrAMINE 50 mg/mL SDV 1mL IVP (20:47)
[2023-12-11] MEDS: ketorolac 30 mg/mL INJ IVP (20:49)
[2023-12-11 20:59] VITALS: BP 147/86; PULSE 69; O2SAT 94
== END 2023-12-11 21:00 | disposition home or self-care (01) ==
PROVIDERS: Emergency Provider Emergency Medicine; PCP Nurse Practitioner Family
DX: R51.9 Headache, unspecified (principal); Z79.82 Long term (current) use of aspirin; I10 Essential (primary) hypertension; F17.210 Nicotine dependence, cigarettes, uncomplicated
CPT/HCPCS: 70450; 80048; 85025; 96374; 96375; 99285; J1100; J1200; J1885; J2405; J2765

== ENCOUNTER 2024-01-20 10:00 | Outpatient (CLI) | payer MEDICARE, MEDICAID, SELFPAY ==
--- NOTE | 2024-01-20 10:01 | CT_ITS ---
WS: [id number] LDCT LUNG CANCER SCREENING HISTORY: NICOTINE DEPENDENCE TECHNIQUE: Axial imaging performed from the apices to 1 cm below the costophrenic angles. Coronal and sagittal reformats are submitted with axial MIP series. All CT scans at [facility] use at least one of these dose optimization techniques: automated exposure control; mA and/or kV adjustment per patient size (includes targeted exams where dose is matched to clinical indication); or iterativ e reconstruction. DLP: 42.72 mGy.cm DIvol: Mean CTDIvol: 0.80 (mGy) COMPARISON: 12/02/2022 Diagnostic quality: Satisfactory Lungs: Mild pulmonary hyperexpansion. Subsegmental atelectasis in the lingula. No mass or nodule. No pneumonia. Small soft tissue nodule in the proximal LEFT mainstem bronchus. Nodule measures 5 mm and was not present on the prior study. Heart: Normal size heart with no pericardial effusion.. Other findings: Moderate atherosclerosis aorta. Normal size pulmonary artery. No adenopathy identifie d. Hilar regions are difficult to evaluate without contrast. Small hiatal hernia. Mild thickening of the LEFT adrenal gland. Mild thoracic spondylosis. CT/CT lung screening [id number] IMPRESSION: LUNG-RADS: 4A-Probably Suspicious FOLLOW UP: 3 Month LDCT OTHER FINDINGS (S MODIFIER): None.
== END 2024-01-20 10:01 | disposition home or self-care (01) ==
PROVIDERS: PCP Nurse Practitioner Family; Visit Provider Family Medicine
DX: Z12.2 Encounter for screening for malignant neoplasm of respiratory organs (principal); F17.210 Nicotine dependence, cigarettes, uncomplicated; J98.11 Atelectasis; R91.1 Solitary pulmonary nodule; I70.0 Atherosclerosis of aorta
CPT/HCPCS: 71271

== ENCOUNTER 2024-04-20 07:42 | Outpatient (CLI) | payer MEDICARE, MEDICAID, SELFPAY ==
--- NOTE | 2024-04-20 07:55 | CT_ITS ---
WS: [id number] CT chest wo con [id number] HISTORY: ABNORMAL FINDINGS ON IMAGING OF LUNG TECHNIQUE: Axial imaging performed through the thorax. Coronal and sagittal reformats are submitted. All CT scans at [facility] use at least one of these dose optimization techniques: automated exposure control; mA and/or kV adjustment per patient size (includes targeted exams where dose is mat ched to clinical indication); or iterative reconstruction. CONTRAST: None DLP: 227.11 mGy.cm COMPARISON: Lung screening 01/20/2024 Lungs and central airway: Mild pulmonary hyperinflation. No pulmonary mass or nodule. Previously desc ribed 5 mm LEFT endobronchial lesion is no longer present. There are additional soft tissue nodules a nd a few septations in the more dependent portion of the proximal bronchi which were not present on t he prior study. Due to the change in position this is consistent with endobronchial mucus excretions with incomplete clearing. Pleura: Normal. No pleural effusion. Heart and pericardium: Very mild cardiomegaly. Mediastinum and dahlia: No adenopathy on this unenhanced exam. Vessels: Moderate atherosclerosis thoracic aorta. Pulmonary artery is top normal size. Chest wall and lower neck: No soft tissue masses. Upper abdomen: Prior cholecystectomy. No adrenal mass. Osseous structures: No destructive process. CT/CT chest wo con [id number] IMPRESSION: 1. Recently described proximal LEFT mainstem bronchus nodule is no longer pres ent. There are new areas of soft tissue thickening and thin septations in the m ore dependent portion of the proximal bronchi. Due to the change in position of the soft tissue nodules this is most consistent with retained endobronchial se cretions. No additional imaging follow-up necessary. Patient should return to a nnual lung screening. 2. No mediastinal or hilar adenopathy identified. 3. Mild cardiomegaly. 4. Moderate atherosclerosis aorta.
== END 2024-04-20 07:43 | disposition home or self-care (01) ==
LOC: RAD 07:43
PROVIDERS: PCP Nurse Practitioner Family; Visit Provider Nurse Practitioner Family
DX: R91.8 Other nonspecific abnormal finding of lung field (principal); I70.0 Atherosclerosis of aorta
CPT/HCPCS: 71250

== ENCOUNTER 2024-06-27 17:14 | Emergency (ER) | payer MEDICARE, MEDICAID, SELFPAY ==
[2024-06-27 17:39] VITALS: BP 142/54; PULSE 104; TEMP 37.7; O2SAT 98; BMI 22.6
--- NOTE | 2024-06-27 18:45 | ED_ITS ---
HPI - URI/Sore Throat General: Chief Complaint: Upper Respiratory Infection Stated Complaint: migraine /chills Time Seen by Provider: 06/27/24 18:33 Source: patient Mode of arrival: ambulatory Limitations: no limitations History of Present Illness: Patient is a 68-year-old female who presents the emergency department complaining of upper respiratory symptoms for the past day or so. States that her sister has identical symptoms. She is having a headache, back pain, cough, body aches and chills, and overall not feeling well. She states that she cannot take ibuprofen due to prior lung injury and cannot take Tylenol due to liver issues. Elevated temperature with triage at 100, rest of her vitals unremarkable. She is not reporting any shortness of breath, chest pain, palpitations, or syncope. Able to tolerate fluids, states that her appetite is diminished. MD elicited complaint: cough Onset (ago): day(s) Consistency: constant Severity: moderate Able to tolerate fluids by mouth: Yes Exacerbating factors: nothing Relieving factors: nothing Context: sick contacts Associated symptoms: Reports chills and headache(s); Deny abdominal pain, chest pain, diarrhea, ear or mastoid pain, fever(s), nausea or vomiting Treatments prior to arrival: none Related Data Home Medications ?Medication ?Instructions ?Recorded ?Confirmed amitriptyline 75 mg tablet 75 mg PO DAILY@ PRN Insom kajal 06/09/19 06/18/21 aspirin 81 mg tablet,delayed 81 mg PO DAILY@ 0 06/18/21 release (Adult Aspirin Regimen) trazodone 100 mg tablet 100 mg PO DAILY@06/09/19 06/18/21 omega 0-cps-liw-fish oil 1,200 mg 1 cap PO DAILY@06/18/21 (144 mg-216 mg) capsule (Fish Oil) lovastatin 20 mg tablet 40 mg PO DAILY@12/20/20 0 06/18/21 Previous Rx's ?Medication ?Instructions ?Recorded gabapentin 300 mg capsule 300 mg PO TID@,, neuro mely 06/18/21 (Neurontin) #90 caps methocarbamol 500 mg tablet 500 mg PO TID@,, PRN spasms 06/18/21 #90 tabs oxycodone 5 mg tablet 5 mg PO BID PRN pain 30 days #60 02/02/22 tabs oxycodone 5 mg tablet 5 mg PO BID PRN pain 30 days #60 06/18/21 tabs pcqbmgskad-jpzrsdv-muwtysja 50 1 cap PO DAILY PRN pain 30 days 12/09/23 mg-325 mg-40 mg capsule #30 caps Allergies Allergy/AdvReac Type Severity Reaction Status Date / Time tramadol Allergy Unknown Verified 06/27/24 17:43 doxycycline AdvReac BEHAVIORAL Verified 06/27/24 17:43 CHANGES hydrocodone AdvReac CAUSES Verified 06/27/24 17:43 PATIENT TO FEEL WIRED Review of Systems General: Reports: 10 or more systems reviewed and unremarkable except in HPI and below Const: Reports: chills, body aches, change in appetite and malaise; Denies: fever(s) or fatigue Eyes: Denies: change in vision ENMT: Denies: throat pain, ear or mastoid pain or nasal discharge Card: Denies: chest pain, palpitations, swelling of feet/ankles or lightheadedness Resp: Reports: non-productive cough; Denies: dyspnea, productive cough or wheezing GI: Denies: abdominal pain, nausea, vomiting, diarrhea or constipation : Denies: flank pain, difficulty voiding, dysuria or urinary frequency Musc: Reports: back pain; Denies: neck pain or joint pain Skin/Breast: Denies: rash Neuro: Reports: headache(s); Denies: numbness in extremities or weakness in extremities PFSH ED PFSH: Medical History Acute hepatitis Gallbladder polyp Hypertension Long-term current use of opiate analgesic Lumbosacral radiculopathy due to intervertebral disc disorder Spondylolisthesis of lumbar region Opioid contract exists Current every day smoker Unmotivated to quit Surgical History History of laparoscopic cholecystectomy 06/25/20 - Dr. Sampson History of colonoscopy (~2019) Hx of appendectomy Dr. Kay 10/18/19 [facility] [place] History of dilatation and curettage x 1 History of tubal ligation History of tonsillectomy History of carpal tunnel surgery of left wrist Family History Other CAD (coronary artery disease) Denies family history of Anesthesia complication Bleeding disorder Social History Smoking and tobacco/nicotine status: current every day tobacco/nicotine user cigarettes Packs smoked per day: 0.5 Alcohol intake: never Substance/Drug Use: never Physical Exam Const: COMMON NORMALS: no acute distress, patient oriented x3 and no limitations GENERAL APPEARANCE: cooperative, comfortable and well developed ORIENTATION/CONSCIOUSNESS: Yes awake, Yes oriented to person, Yes oriented to place and Yes oriented to time HENMT: COMMON NORMALS: normocephalic, atraumatic, hearing grossly normal bilaterally, moist oral mucous membranes and oropharynx normal HEAD & SCALP: normocephalic and atraumatic Eye: COMMON NORMALS: Equal, round and reactive pupils present, EOMs intact bilaterally and conjunctivae normal CONJUNCTIVA: Yes conjunctivae normal PUPIL: Yes Equal, round and reactive pupils present Neck/C-Spine: COMMON NORMALS: full ROM, supple and no JVD Resp: COMMON NORMALS: normal respiratory effort, No retractions, No use of accessory muscles and clear to auscultation bilaterally AUSCULTATION: clear to auscultation bilaterally Cardio: COMMON NORMALS: no JVD, regular rate, regular rhythm, No clicks present (Cardio) and No rub (Cardio) RATE: regular rate RHYTHM: regular rhythm HEART SOUNDS: Murmur heart sound present systolic Location: left sternal border and right sternal border Intensity: III/ GI: COMMON NORMALS: Normal to inspection, nondistended, normoactive bowel sounds present, Soft to palpation and non-tender AUSCULTATION: Yes normoactive bowel sounds PALPATION: Yes Soft to palpation RECTAL EXAM: deferred Extremity: COMMON NORMALS: normal to inspection, full ROM and capillary refill normal Neuro: COMMON NORMALS: patient oriented x3, moves all extremities, no focal motor deficits and no sensory deficits noted SENSORIUM/ORIENTATION: Yes oriented to person, Yes oriented to place and Yes oriented to time Skin: COMMON NORMALS: no rashes or lesions noted GENERAL SKIN EXAM: no rashes or lesions noted Course Vital Signs: Vital signs: Vital Signs Temperature 100 F H 06/27/24 17:39 Pulse Rate 104 H 06/27/24 17:39 Blood Pressure 142/54 06/27/24 17:39 Pulse Oximetry 98 06/27/24 17:39 Oxygen Delivery Me thod Room Air 06/27/24 17:39 MDM - URI/Sore Throat Medical Decision Making Patient diagnosed with COVID here, states to me that she cannot take Tylenol nor ibuprofen. States that last time she was here for back pain she was treated with morphine and this helped, I explained to her that this likely will not have similar effect being that this is viral etiology instead of musculoskeletal, however she opted for morphine shot. Encouraged her to follow-up with primary care tomorrow for general reevaluation, and return with any new or worsening. She verbalized understanding and we did discuss other conservative therapies. Lab Data Laboratory Results Coronavirus (PCR) Positive (Negative) A 06/27/24 17:28 Influenza A (PCR) Negative (Negative) 06/27/24 17:28 Influenza Type B (PCR) Negative (Negative) 06/27/24 17:28 RSV (PCR) Negative (Negative) 06/27/24 17:28 No radiology studies performed this visit Discharge Plan Discharge Patient Disposition: Home Clinical Impression: COVID-19 Condition: Stable Prescriptions: No Action Neurontin 300 mg capsule 300 mg PO TID@, Qty: 90 1RF methocarbamol 500 mg tablet 500 mg PO TID@ PRN (Reason: spasms) Qty: 90 1RF oxycodone 5 mg tablet 5 mg PO BID PRN (Reason: pain) 30 Days Qty: 60 0RF Rx Instructions: Fill on or after 06/26/21 oxycodone 5 mg tablet 5 mg PO BID PRN (Reason: pain) 30 Days Qty: 60 0RF Rx Instructions: Fill on or after 07/25/21 trazodone 100 mg tablet 100 mg PO DAILY@22 amitriptyline 75 mg tablet 75 mg PO DAILY@22 PRN (Reason: Insomnia) aspirin [Adult Aspirin Regimen] 81 mg tablet,delayed release (DR/EC) 81 mg PO DAILY@07 lovastatin 20 mg tablet 40 mg PO DAILY@22 omega 3-quw-ysx-fish oil [Fish Oil] 1,200 (144-216) mg Capsule 1 cap PO DAILY@07 axcwkidsbh-cljqfxp-vjkmqref 50-325-40 mg capsule 1 cap PO DAILY PRN (Reason: pain) 30 Days Qty: 30 1RF Discharge Orders: Discharge ED (Routine); Ordered 06/27/24 Ordered By: Barrera Fernandez Referrals: Lisa Olea FNP [Primary Care Provider] - Patient Instructions: COVID-19 (Coronavirus Disease 2019) (ED) Activity Restrictions/Additional Instructions: Please follow-up with primary care tomorrow. Make sure that you are drinking plenty of fluids. Take your prescribed pain medications at home. You have been diagnosed with COVID-19, please enact contact precaution. Please return with any respiratory distress or other concerning symptoms. Print Language: Guatemalan Coding Level of Care Code ED License Examiner for Jason Rivera
[2024-06-27 19:05] LABS: Influenza A NEGATIVE (Negative); Influenza B NEGATIVE (Negative); Respiratory Syncytial Virus Ce NEGATIVE (Negative)
[2024-06-27] MEDS: morphine 4 mg/mL SDV 1 mL IM (19:09)
[2024-06-27 19:15] LABS: Covid PCR Positive (Negative)
[2024-06-27 19:41] VITALS: BP 139/80; PULSE 99; O2SAT 93
== END 2024-06-27 19:35 | disposition home or self-care (01) ==
PROVIDERS: Emergency Provider Physician Assistant; PCP Nurse Practitioner Family
DX: U07.1 COVID-19 (principal); Z11.52 Encounter for screening for COVID-19; Z79.82 Long term (current) use of aspirin; F17.210 Nicotine dependence, cigarettes, uncomplicated
CPT/HCPCS: 87637; 96372; 99284; J2270

== ENCOUNTER 2024-07-31 13:43 | Outpatient (CLI) | payer MEDICARE, MEDICAID, SELFPAY ==
--- NOTE | 2024-07-31 13:52 | MM_ITS ---
WS: [id number] BILATERAL 3D TOMOSYNTHESIS DIGITAL SCREENING MAMMOGRAPHY WITH CAD CLINICAL INFORMATION: SCREENING HISTORY: Screening mammogram. No current complaints. COMPARISON: 2023 TECHNIQUE: Bilateral CC and MLO views. FINDINGS: The breasts are composed of heterogeneous fibroglandular density tissue, which can limit the detection of small underlying mass lesions. No suspicious mass, asymmetry, calcifications, or architectural distortion. No evidence of malignancy. Dense nodular tissue subareolar RIGHT breast is stable over multiple prior studies and was previously evaluated with ultrasound. MM/MM [facility] tomosynthesis [id number] IMPRESSION: DENSITY: The breasts are heterogeneously dense, which may obscure small masses. BI-RADS: 2 - Benign FOLLOW UP: 1 Year Follow-up Recommend return to annual screening mammography.
== END 2024-07-31 13:44 | disposition home or self-care (01) ==
PROVIDERS: PCP Nurse Practitioner Family; Visit Provider Nurse Practitioner Family
DX: Z12.31 Encounter for screening mammogram for malignant neoplasm of breast (principal); R92.333 Mammographic heterogeneous density, bilateral breasts; N63.10 Unspecified lump in the right breast, unspecified quadrant
CPT/HCPCS: 77063; 77067